=== PATIENT | female | born 1945 | race Caucasian/White ===

== ENCOUNTER 2022-11-11 09:09 | Emergency (ER) | payer MEDICARE, SELFPAY ==
[2022-11-11 09:09] VITALS: BP 167/88; PULSE 72; RESP 20; TEMP 35.1; O2SAT 97; BMI 22.8
--- NOTE | 2022-11-11 09:30 | CT_ITS ---
STUDY: CT BRAIN WITHOUT CONTRAST REASON FOR EXAM: Female, 77 years old. 2 week history of dizziness. RADIATION DOSAGE (If Supplied By Facility): CTDIvol = ( 44.99 ) mGy, DLP = ( 812.98 ) mGycm TECHNIQUE: Transaxial CT imaging of the brain was performed without administration of intravenous contrast material. Individualized dose optimization techniques were used for this CT. COMPARISON: No relevant priors. FINDINGS: Normal soft tissue structures. Normal calvarium. There is mild cerebral atrophy with widening of the extra-axial spaces and ventricular dilatation. Normal white matter tracts of the cerebral hemispheres. Normal basal ganglia and thalami. Normal brainstem. Normal cerebellum. There is no intracranial hemorrhage. There are no findings of an acute ischemic infarction. Atherosclerotic calcification of the cavernous portions of the internal carotid arteries bilaterally. Partial opacification of the right maxillary sinus. Complete opacification of the ethmoid sinuses with the thickening of the bony septations. Opacification of the frontal sinuses as well as the right sphenoid sinus. Nasal polyposis should be ruled out. CT/Brain/Head without Contrast IMPRESSION: Chronic involutional changes of the brain. Pansinusitis. Findings suggestive of nasal polyposis. Electronically Signed: Sudheer Christine MD at 10:24 EDT ,
--- NOTE | 2022-11-11 09:30 | EKG12_ITS ---
Test Reason : DIZZY Blood Pressure : / mmHG Vent. Rate : 064 BPM Atrial Rate : 064 BPM P-R Int : 134 ms QRS Dur : 090 ms QT Int : 374 ms P-R-T Axes : 046 -25 019 degrees QTc Int : 385 ms Normal sinus rhythm Possible Left atrial enlargement Minimal voltage criteria for LVH, may be normal variant ( R in aVL ) Nonspecific T wave abnormality Abnormal ECG Confirmed by KAY PINEDA, EDWIN ([id number]), story editor LANRE HSU ([id number]) on 11/14/2022 1:50:32 PM Referred By: Confirmed By:EDWIN VILLANUEVA MD
--- NOTE | 2022-11-11 09:32 | EX.ED.DYSGE1 ---
HPI History of Present Illness Chief Complaint: Dizziness Detail of Chief Complaint: Dizziness Informant: patient Narrative Narrative: Patient presents with dizziness that started initially 5 days ago. Patient had similar episode 2 weeks ago from and the dizziness lasted till noon the next day. Patient felt off balance. Patient does feel nauseated. Patient feels off balance. She has not fallen. She is not hit her head. No prior history of vertigo. She denies any chest pain or shortness of breath. She denies recent illness. Patient has history of hypothyroidism. PFSH PFSH Home Medications meclizine 25 mg chewable tablet (Antivert) 25 mg PO TID PRN dizziness #14 tabs 11/11/22 [Rx Last Taken Unknown] Allergy/AdvReac Type Severity Reaction Status Date / Time No Known Allergies Allergy Verified 11/11/22 09:10 Social History Smoking Status: Never smoker ROS ROS ED ROS Narrative Dizziness Review of Systems ROS Unobtainable: other Constitutional Constitutional ED: Reports lethargy; Denies chills, fever(s), sweats or weight loss Eyes Eyes: Denies blurry vision, change in vision or diplopia ENT ENT ED: Denies rhinorrhea or sore throat Cardiovascular Cardiovascular: Denies chest pain, orthopnea or racing heartbeat Respiratory/Chest Respiratory/Chest: Denies cough, dyspnea, dyspnea on exertion, orthopnea or sputum Gastrointestinal Gastrointestinal: Reports nausea; Denies abdominal pain, diarrhea or vomiting Genitourinary Genitourinary ED: Denies dysuria, hematuria or urinary frequency Musculoskeletal Musculoskeletal: Denies arthralgias, back pain, myalgias or neck pain Integumentary Denies abscess, Abrasions or rash Neurologic Neurologic: Denies headache(s) or weakness Psychiatric Psychiatric: Denies anxiety, depression or suicidal thoughts Endocrine Endocrinology: Denies polydipsia, polyphagia or polyuria Hematologic/Lymphatic Hematologic/Lymphatic: Denies easy bleeding, easy bruising or lymphadenopathy Allergic/Immunologic Allergic/Immunologic ED: Denies mouth swelling, tongue swelling or urticaria EXAM Physical Exam Const Vital Signs: 11/11/22 09:09 11/11/22 09:40 11/11/22 10:36 Temperature 95.1 F L Temperature Source Temporal Pulse Rate 72 Pulse Rate [Lying] 63 Pulse Rate [Sitting (for 1 minute prior to obtaining)] 63 Pulse Rate [Standing (for 1 minute prior to obtaining)] 71 Respiratory Rate 20 H Respiratory Effort Normal Non-Labored Respiratory Pattern Normal Blood Pressure 167/88 H Blood Pressure [Lying] 115/62 Blood Pressure [Sitting (for 1 minute prior to obtaining)] 127/67 H Blood Pressure [Standing (for 1 minute prior to obtaining)] 142/101 H Blood Pressure Mean 114 Blood Pressure Mean [Lying] 79 Blood Pressure Mean [Sitting (for 1 minute prior to obtaining)] 87 Blood Pressure Mean [Standing (for 1 minute prior to obtaining)] 114 Pulse Ox 97 Oxygen Delivery Method Room Air 11/11/22 11:40 Temperature Temperature Source Pulse Rate 64 Pulse Rate [Lying] Pulse Rate [Sitting (for 1 minute prior to obtaining)] Pulse Rate [Standing (for 1 minute prior to obtaining)] Respiratory Rate 13 Respiratory Effort Respiratory Pattern Blood Pressure 127/61 H Blood Pressure [Lying] Blood Pressure [Sitting (for 1 minute prior to obtaining)] Blood Pressure [Standing (for 1 minute prior to obtaining)] Blood Pressure Mean 83 Blood Pressure Mean [Lying] Blood Pressure Mean [Sitting (for 1 minute prior to obtaining)] Blood Pressure Mean [Standing (for 1 minute prior to obtaining)] Pulse Ox 95 Oxygen Delivery Method Room Air Positive well nourished and well developed General Appearance ED: well developed and NAD HEENT Reports TM's clear and moist mucous membranes normocephalic and atraumatic; Negative for trauma or tenderness Tympanic Membrane ED: Yes TM's clear Eyes PERRL and EOMs intact bilaterally General Eye ED: Negative for pale conjunctiva or scleral icterus Neck no lymphadenopathy, supple and no JVD General: Negative for tenderness Chest Wall inspection of chest normal and palpation of chest normal Chest: Negative for tenderness Resp normal respiratory effort and clear to auscultation bilaterally Effort and Inspection: Negative for respiratory distress or pain with movement Auscultation: Negative for rhonchi, wheezes or diminished lung sounds Cardio regular rate, regular rhythm, S1 normal heart sound, S2 normal heart sound and no murmurs Peripheral Pulses: pulses 2+ throughout GI normal to inspection, nondistended, normoactive bowel sounds, soft to palpation, non-tender, non-distended and no masses Back/Spine no CVA tenderness and no thoracic nor lumbar tenderness Extremity normal to inspection General Extremety ED: Negative for edema General Extremity: Negative for edema Neuro oriented x3, CN's II-XII intact bilaterally, no sensory deficits noted and gait normal Neuro Narrative: Finger-nose and heel rolon testing within normal limits, negative Romberg, negative pronator drift. Fundi benign. Hallpike maneuver negative for nystagmus or reproduction of her symptoms. Sensorium / Orientation: awake, alert, oriented to person, oriented to place and oriented to time Motor Exam: strength 5/5 throughout and strength abnormal Psych mental status grossly normal Skin no rashes or lesions noted and no wounds MDM MDM MDM Narrative Medical decision making narrative: Patient presents with dizziness. In the differential would be benign positional vertigo versus central cause such as stroke. There is no nystagmus on exam. I did obtain some basic labs CBC with differential showed a white count of 3.1 with a hemoglobin of 14 and platelets of 215. Chemistries were unremarkable. Troponin was negative. EKG showed a sinus rhythm with a rate of [address] changes. CT scan of the brain without contrast showed chronic involutional changes otherwise nothing acute. Patient was given Antivert 25 mg p.o. and she did not notice a significant difference in her symptomatology although currently her symptomatology is mild of just feeling off balance. Orthostatic vital signs were negative for blood pressure drop but her heart rate did increase with standing and she did feel somewhat dizzy. I did order an MRI of her brain to rule out central cause of stroke. This was negative for stroke but did show sinus disease that could be his pansinusitis. Patient has not had a fever. She does have chronic sinus problems and had surgery on her sinuses in 2018. This point patient looks well. I will write her a prescription prescription for Antivert. I will refer ENT for follow-up. I do not clinically feel she needs antibiotics. Lab Data Attestation: I reviewed the patient's lab results. Labs: Laboratory Results - last 24 hr 11/11/22 09:40 WBC 3.1 L RBC 4.73 Hgb 14.2 Hct 45.2 MCV 95.6 MCH 30.0 MCHC 31.4 L RDW Std Deviation 44.2 H RDW Coeff of Erinn 12.5 Plt Count 215 MPV 9.6 Immature Gran % (Auto) 0.300 Neut % (Auto) 52.9 Lymph % (Auto) 19.2 [place] % (Auto) 16.9 H Eos % (Auto) 10.4 H Baso % (Auto) 0.3 Absolute Neuts (auto) 1.6 L Absolute Lymphs (auto) 0.59 L Nucleated RBC % 0 Differential Comment SCANNED Diff Path Review May foll Sodium 140 Potassium 3.9 Chloride 107 Carbon Dioxide 30.0 Anion Gap 3 L BUN 16 Creatinine 0.76 Estim Creat Clear Calc 45.09 Est GFR (MDRD) Af Amer 94 Est GFR (MDRD) Non-Af 78 BUN/Creatinine Ratio 20.9 H Glucose 115 H Calcium 9.2 Troponin I High Sens 4 Radiography Diagnostic Testing: Clinical Impression(s) from Imaging Studies Brain CT 11/11/22 09:30 IMPRESSION: Chronic involutional changes of the brain. Pansinusitis. Findings suggestive of nasal polyposis. Electronically Signed: Sudheer Christine MD at 10:24 EDT , Brain MRI 11/11/22 11:32 IMPRESSION: No evidence for acute infarct. Mild chronic involutional and white matter changes. 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 Electronically Signed: Shy Candelario MD at 13:19 EDT , EKG Initial EKG: Attestation: I personally reviewed and interpreted this EKG as follows: Comments: Sinus rhythm with a rate of [address] changes Discharge Plan Triage Chief Complaint: Dizziness ED Provider: Shanell Rodgers Dx/Rx/DC Orders Clinical Impression: Dizziness Instructions: ED Dizziness, Uncertain Cause Prescriptions: New meclizine [Antivert] 25 mg tablet,chewable 25 mg PO TID PRN (Reason: dizziness) Qty: 14 0RF Primary Care Provider: Jagdish Joyce MD Referrals: Romain Corley MD [Med Staff - Active Staff] - 3-5 Days NOT,DEFINED [Non-Staff] - Disposition Disposition: Home, Self Care Discharge Date/Time: 11/11/22 13:49
--- NOTE | 2022-11-11 09:34 | NURSING ---
NO OLD EKGS
[2022-11-11] MEDS: Ondansetron 4 MG/2 ML Vial IV (09:49)
[2022-11-11] MEDS: Meclizine HCl 25 MG Tablet PO (09:49)
[2022-11-11] MEDS: 0.9% Normal Saline (1000mL) 1,000 ML 150 ML IV (09:54)
[2022-11-11 10:14] LABS: Absolute Lymphocyte Count 0.59 X10^3/uL (0.83-4.51); Absolute Neutrophil Count 1.6 X10^3/uL (2.0-7.7); Basophil# 0.01 X10^3/uL; Basophil% 0.3 % (0-1); Eosinophil# 0.32 X10^3/uL; Eosinophils% 10.4 % (0-5); Hematocrit 45.2 % (37-47); Hemoglobin 14.2 g/dL (12.0-15.0); Lymphocyte # 0.59 X10^3/ul (0.83-4.51); Lymphocyte % 19.2 % (19-41); Mean Corp Hgb Conc 31.4 g/dL (32-36); Mean Corpuscular Volume 95.6 fL (81-99); Mean Platelet Vol. 9.6 fl (6.2-12.0); Monocyte# 0.52 X10^3/uL; Monocyte% 16.9 % (0-10); NRBC Flagged by Analyzer 0 % (0-5); Neutrophil # 1.62 X10^3/uL (2.7-7.7); Neutrophil % 52.9 % (47-70); POSITIVE DIFFERENTIAL YES; Platelet Count 215 K/mm3 (150-450); RBC Distribution Width CV 12.5 % (11.6-14.6); RBC Distribution Width SD 44.2 fl (35.1-43.9); Red Blood Count 4.73 M/mm3 (4.2-5.4); White Blood Count 3.1 K/mm3 (4.4-11.0)
[2022-11-11 10:18] LABS: Differential Indicated SCAN CRITERIA MET
[2022-11-11 10:35] LABS: Anion Gap 3 (5-15); BUN 16 mg/dL (7-18); BUN/Creat Ratio 20.9 RATIO (10-20); Calcium,Total 9.2 mg/dL (8.5-10.1); Chloride 107 mmol/L (98-107); Creatinine, Serum 0.76 mg/dL (0.55-1.02); EST Glomerular Filtration Rate 78 mL/min (>60); Est Glom Filt Rate - Afr Amer 94 mL/min (>60); Estimated Creatinine Clearance 45.09 ml/min; Glucose 115 mg/dL (74-106); Potassium 3.9 mmol/L (3.5-5.1); Sodium Level 140 mmol/L (136-145); Troponin-I HS 4 pg/mL (3.0-54.0)
[2022-11-11 10:36] VITALS: BP 115/62; BP 127/67; BP 142/101; PULSE 63; PULSE 71
[2022-11-11 10:50] LABS: Differential Comment SCANNED
--- NOTE | 2022-11-11 11:32 | MRI_ITS ---
HISTORY: Dizziness, rule out posterior stroke. TECHNIQUE: Multiplanar and multisequence MR images of the brain were obtained without contrast. 301 images. COMPARISON: CT earlier same day. FINDINGS: BRAIN PARENCHYMA: Mild periventricular white matter changes. No abnormal focus of restricted diffusion. No acute intracranial hemorrhage identified. CSF SPACES: Mild volume loss. No significant midline shift or other mass effect.No extra-axial fluid collection. VASCULAR SYSTEM: Major intracranial flow voids are maintained. PARANASAL SINUSES AND MASTOID AIR CELLS: Severe opacification of the frontal ethmoid sinuses extending into the right sphenoid sinus. Sinonasal postoperative change with maxillary sinus mucosal thickening extending into the nasal cavity. ORBITS: Symmetric contents. MRI/Brain without Contrast IMPRESSION: No evidence for acute infarct. Mild chronic involutional and white matter changes. 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 Electronically Signed: Shy Candelario MD at 13:19 EDT ,
[2022-11-11 11:40] VITALS: BP 127/61; PULSE 64; RESP 13; O2SAT 95
[2022-11-13 09:37] LABS: Pathologist Review Reviewed
== END 2022-11-11 13:49 | disposition home or self-care (01) ==
PROVIDERS: Emergency Provider Emergency Medicine; Visit Provider Emergency Medicine
DX: R42 Dizziness and giddiness (principal)
CPT/HCPCS: 70450; 70551; 80048; 84484; 85025; 93005; 96361; 96374; 99285; J7030; A4216; J2405

== ENCOUNTER 2023-01-14 14:00 | Outpatient (RCR) | payer MEDICARE, SELFPAY ==
--- NOTE | 2023-01-14 13:47 | HP.PTEVAL ---
Patient's Visit Information Visit Information Visit Information: TONYA SOLARES is a 77 year old F referred to Physical Therapy by MALACHI QUEZADA with a diagnosis of LBP and B hip pain. Date of Evaluation: 12/26/22 Physical Therapist: Shane Carmona DPT Visit Plan Frequency: 2x /Week Duration: 4 Weeks Plan: Start with hip ER mobilization, IT band stretching. Progress glute, hip ER and abd strengthening as tolerated. Subjective Subjective: Pt. is here today for her initial evaluation with diagnosis of B hip pain and intervertebral disc degeneration. Pt. reports having increased pain in her low back and B lateral hips. Pt. reports no N/T and no mech of injury. Pt. reports increased pain with bending over, going up/down stairs, and with carrying. Pt. has been doing better, but still has some symptoms 1/10 pain at R lateral hip. Pt. is sleeping okay with occassional increase in symptoms. Pt. is hopeful to decrease her symptoms in order to get back to all recreational activities without limitations. Pain R lateral hip: Pain Intensity (Out of 10): 1 Pain Intensity Range: 0 and 8 Objective Objective: POSTURE: Pt. has fairly decent posture in stance. Normal symmetrical iliac crest heights. PALPATION: Pt. has some tenderness at R greater trochanter, and posterior medial aspect of greater trochanter. No anterior hip pain. mild lumbar pain with PA testing, hypomobility noted, no radicular symptoms with PAs. NEURO: normal throughout. ROM: LUMBAR SPINE: nil/min loss throughout no increase in lateral hip pain. R hip: normal flexion no pain, abd 45deg no pain, IR 30 deg no pain, ER 45deg increase nW at lateral hip. L hip: flexion no issues, abd no issues, IR no issues. ER 50deg mild increase in symptoms. Pt. does have tight IT bands with + obers test as well bilaterally. MMT: Pt. has good BLE strength except slight weakness with hip ER, abd and extension 4/5. Core strength fair-. GAIT: Pt. has good gait pattern, no obvious abnormalities. STAIRS: Pt. has increased B hip pain with ascending steps, less with descending. Special Tests L/S Slump test left side: Negative L/S Slump test right side: Negative L/S Left Straight Leg Raise: Negative L/S Right Straight Leg Raise: Negative Lumbar Standing: Flexion - Mechanical Response: No effect Lumbar Standing: Flexion - Symptoms During Testing: No effect Lumbar Standing: Flexion - Symptoms After Testing: No effect Lumbar Standing: Extension - Mechanical Response: No effect Lumbar Standing: Extension - Symptoms During Testing: No effect Lumbar Standing: Extension - Symptoms After Testing: No effect Lumbar Standing: Right Side Glides - Mechanical Response: No effect R Hip Scour: Negative R Hip DELIA - Intraarticular Pathology: Negative R Hip FADDIR - Labrum: Negative R Hip Trendelenberg - Glut Medius: Negative R Hip Mason - IT Band: Positive Comment: tight IT band L Hip Scour: Negative L Hip DELIA - Intraarticular Pathology: Negative L Hip FADDIR - Labrum: Negative L Hip Trendelenberg - Glut Medius: Negative L Hip Mason - IT Band: Positive Comment: tight IT band, less so than R side Balance/Special Test Scores Lower Extremity Functional Score: 39 Goals Goal 1:: LTG: pt. to be I with HEP to B hip stretching and glute/hip ER strengthening. Goal Time Frame: 4-6 Weeks Goal 2:: STG: Pt. to have increased B hip ER to 70+ deg bilaterally. Goal Time Frame: 2-4 Weeks Goal 3:: LTG: pt. to have increased strength of BLEs to 5/5 throughout. Goal Time Frame: 4-6 Weeks Goal 4:: LTG: Pt. to be able to get up and down stairs without increase in B hip pain. Goal Time Frame: 4-6 Weeks Rehabilitation Potential Physical Therapy Diagnosis: Pt. has signs and symptoms consistent with LBP and B hip pain. Her hip ROM is pretty good, except with hip ER. I would like to work on hip ER and core/hip strengthening in order to progress Rehabilitation Potential: Excellent Anticipated Interventions Patient/Client Instruction: Educate patient on: Condition, Plan of Care, Risk Factors and Benefits of Fitness Program For the Purpose of:: To improve decision making, To facilitate caregiver knowledge, To improve self management, To prevent re-injury, To improve ability to perform tasks related to life management and To improve tolerance to ADL's Therapeutic Exercise to Include: Strength training, Power training, Endurance training, Postural training, Flexibilty training, Gait and locomotor training, Passive ROM and Active ROM For the Purpose of:: To decrease pain, To increase ROM, To improve nutrient delivery to tissue, To increase oxygenation perfusion, To improve muscle performance and motor function, To improve ability to perform ADL's, To improve health of tissue, To decrease soft tissue restriction and To increase flexibility/ROM Manual Therapy Techniques to Include: Mobilization and Soft tissue mobilization For the Purpose of:: To decrease pain, To increase ROM, To improve nutrient delivery to tissue, To increase oxygenation perfusion and To improve muscle performance and motor function Text: Thank you for the opportunity to evaluate your patient. For Medicare and Medicare HMO plans, please review the plan of care and approve it. It will need to be FAXED BACK to us at [phone] for Medicare purposes. For Medicare only, by signing this I certify the plan of care. Please let me know if there are questions or concerns regarding this plan of care. Physician Signature: Date:
== END 2023-01-14 19:00 | disposition home or self-care (01) ==
LOC: PT 14:00
DX: M51.36 Other intervertebral disc degeneration, lumbar region (principal); M25.552 Pain in left hip; M25.551 Pain in right hip
CPT/HCPCS: 97035; 97110; 97161

== ENCOUNTER → 2023-12-02 | Outpatient (CLI) | payer MEDICARE, SELFPAY ==
[2023-12-02 10:45] LABS: Absolute Lymphocyte Count 0.71 X10^3/uL (0.83-4.51); Absolute Neutrophil Count 2.7 X10^3/uL (2.0-7.7); Basophil# 0.04 X10^3/uL; Basophil% 0.9 % (0-1); Eosinophil# 0.29 X10^3/uL; Eosinophils% 6.8 % (0-5); Hematocrit 45.6 % (37-47); Hemoglobin 14.6 g/dL (12.0-15.0); Lymphocyte # 0.71 X10^3/ul (0.83-4.51); Lymphocyte % 16.6 % (19-41); Mean Corpuscular Volume 93.8 fL (81-99); Mean Platelet Vol. 9.4 fl (6.2-12.0); Monocyte# 0.51 X10^3/uL; Monocyte% 11.9 % (0-10); NRBC Flagged by Analyzer 0 % (0-5); Neutrophil # 2.72 X10^3/uL (2.7-7.7); Neutrophil % 63.6 % (47-70); Platelet Count 246 K/mm3 (150-450); RBC Distribution Width CV 12.4 % (11.6-14.6); RBC Distribution Width SD 43.1 fl (35.1-43.9); Red Blood Count 4.86 M/mm3 (4.2-5.4); White Blood Count 4.3 K/mm3 (4.4-11.0)
[2023-12-02 11:26] LABS: ALB/GLOB Ratio 0.8 RATIO (0.9-2.4); AST(SGOT) 20 U/L (15-37); Alanine Aminotransfer ALT/SGPT 25 U/L (13-56); Albumin, Serum 3.4 g/dL (3.2-5.0); Alkaline Phosphatase 41 U/L (45-117); Anion Gap 4 (5-15); BUN 17 mg/dL (7-18); BUN/Creat Ratio 20.3 RATIO (10-20); Calcium,Total 9.9 mg/dL (8.5-10.1); Chloride 105 mmol/L (98-107); Cholesterol 202 mg/dL (200); Creatinine, Serum 0.84 mg/dL (0.55-1.02); EST Glomerular Filtration Rate 70 mL/min (>60); Est Glom Filt Rate - Afr Amer 84 mL/min (>60); Globulin 4.4 g/dL (2.2-4.2); Glucose 102 mg/dL (74-106); High Density Lipoprotein 104 mg/dL; Protein, Total 7.8 g/dL (6.4-8.2); Sodium Level 140 mmol/L (136-145); Triglycerides 46 mg/dL; Very Low Density Lipoprotein 9 mg/dL (5-40)
== END | disposition home or self-care (01) ==
PROVIDERS: PCP Family Medicine; Referring Provider Family Medicine; Visit Provider Family Medicine
DX: Z00.00 Encounter for general adult medical examination without abnormal findings (principal); E78.5 Hyperlipidemia, unspecified; E03.9 Hypothyroidism, unspecified
CPT/HCPCS: 36415; 80053; 80061; 84443; 85025

== ENCOUNTER → 2024-06-11 | Outpatient (CLI) | payer MEDICARE, SELFPAY ==
[2024-06-11 10:28] LABS: Absolute Lymphocyte Count 1.11 X10^3/uL (0.83-4.51); Absolute Neutrophil Count 1.9 X10^3/uL (2.0-7.7); Basophil# 0.03 X10^3/uL; Basophil% 0.8 % (0-1); Eosinophil# 0.39 X10^3/uL; Eosinophils% 9.9 % (0-5); Hematocrit 44.4 % (37-47); Hemoglobin 14.4 g/dL (12.0-15.0); Lymphocyte # 1.11 X10^3/ul (0.83-4.51); Lymphocyte % 28.2 % (19-41); Mean Corp Hgb Conc 32.4 g/dL (32-36); Mean Corpuscular Hgb 30.8 pg (27.0-32.0); Mean Corpuscular Volume 94.9 fL (81-99); Mean Platelet Vol. 9.6 fl (6.2-12.0); Monocyte% 12.7 % (0-10); NRBC Flagged by Analyzer 0 % (0-5); Neutrophil # 1.89 X10^3/uL (2.7-7.7); Neutrophil % 48.1 % (47-70); Platelet Count 261 K/mm3 (150-450); RBC Distribution Width CV 12.8 % (11.6-14.6); RBC Distribution Width SD 44.1 fl (35.1-43.9); Red Blood Count 4.68 M/mm3 (4.2-5.4); White Blood Count 3.9 K/mm3 (4.4-11.0)
[2024-06-11 11:15] LABS: ALB/GLOB Ratio 1.1 RATIO (0.9-2.4); AST(SGOT) 25 U/L (<=31); Alanine Aminotransfer ALT/SGPT 20 U/L (<=34); Albumin, Serum 3.8 g/dL (3.4-4.8); Alkaline Phosphatase 45 U/L (35-104); Anion Gap 10 (5-15); BUN 14 mg/dL (4-19); BUN/Creat Ratio 20.8 RATIO (10-20); Carbon Dioxide 28.2 mmol/L (21.0-32.0); Chloride 105 mmol/L (98-108); Cholesterol 261 mg/dL (<=200); Creatinine, Serum 0.67 mg/dL (0.70-1.20); EST Glomerular Filtration Rate 88 (>60); Globulin 3.4 g/dL (2.2-4.2); Glucose 93 mg/dL (70-99); High Density Lipoprotein 92 mg/dL; Low Density Lipoprotein Calc. 158 mg/dL; Potassium 4.4 mmol/L (3.3-5.1); Protein, Total 7.3 g/dL (5.9-8.4); Sodium Level 143 mmol/L (133-145); Total Bilirubin 0.29 mg/dL (0.00-1.30); Triglycerides 57 mg/dL; Very Low Density Lipoprotein 11 mg/dL (5-40); Vitamin D,25 Hydroxy 38.2 ng/mL (30-100); cholesterol:hdl ratio screen 2.84
== END | disposition home or self-care (01) ==
LOC: MTLAB 09:16
PROVIDERS: PCP Family Medicine; Referring Provider Family Medicine; Visit Provider Family Medicine
DX: J33.9 Nasal polyp, unspecified (principal); Z13.220 Encounter for screening for lipoid disorders; E03.9 Hypothyroidism, unspecified; E55.9 Vitamin D deficiency, unspecified
CPT/HCPCS: 36415; 80053; 80061; 82306; 84443; 85025

== ENCOUNTER → 2024-06-17 | Outpatient (CLI) | payer MEDICARE, SELFPAY ==
--- NOTE | 2024-06-17 10:23 | BD_ITS ---
PROCEDURE: DEXA BONE DENSITY STUDY 06/17/2024 REASON FOR EXAM: F, age 79 y/o . Postmenopausal. TECHNIQUE: DXA scan of the lumbar spine and both hips, using make and model. REFERENCE LINKS: ISCD Adult Positions COMPARISON: None FINDINGS: BMD and T-SCORES Lumbar spine: 0.678 g/cm2, T-Score -3.1 L1 through L4 Left femoral neck: 0.522 g/cm2, T-Score -2.9 Femoral neck comparison data not recommended for monitoring change. Left total hip: 0.644 g/cm2, T-Score -2.4 Right femoral neck: 0 point 520 g/cm2, T-Score -3.0 Femoral neck comparison data not recommended for monitoring change. Right total hip: 0.612 g/cm2, T-Score -2.7 Fracture Risk Calculation: FRAX (10-year Fracture Risk) Score: FRAX scores should never be reported in a patient with osteoporosis on DEXA or for any patient that is on bone medication. The patient doesmeet the pharmacological treatment recommendations for prevention of osteoporosis BD/Dexa Bone Density Study IMPRESSION: OSTEOPOROSIS. Recommend follow-up as clinically warranted. Reading Location: [place] [id number]
== END | disposition home or self-care (01) ==
LOC: OPBD 10:22
PROVIDERS: PCP Family Medicine; Referring Provider Family Medicine; Visit Provider Family Medicine
DX: Z78.0 Asymptomatic menopausal state (principal)
CPT/HCPCS: 77080

== ENCOUNTER 2024-12-02 20:37 | Emergency (ER) | payer MEDICARE, SELFPAY ==
[2024-12-02 20:39] VITALS: BP 178/76; PULSE 71; RESP 18; TEMP 36.8; O2SAT 97; BMI 23.3
--- NOTE | 2024-12-02 21:05 | EDS_ITS ---
HPI History of Present Illness Chief Complaint: Flank Pain Detail of Chief Complaint: Acute right flank pain that started 2 hours ago Informant: patient Onset/Context/Timing Onset: Today and Hours Context: Sudden Onset Timing: Continuous and Waxes and wanes Quality: Colicky Location: Initially right flank now wrapping around anteriorly Current Severity: Moderate Maximum Severity: Severe Worsened by: Nothing Relieved by: Nothing Associated Symptoms Associated Symptoms: Nausea, vomiting, dysuria and frequency Narrative Narrative: Patient is an 79-year-old woman. She has history of osteoporosis and remote history of kidney stone. She passed that stone. She presents because of abrupt onset of right flank pain that is now radiating anteriorly. Nothing makes the pain better or worse. She does endorse dysuria and frequency. She denies hematuria or urgency. She states she is only going small amounts, however. She denies vaginal bleeding. There is no history of direct or indirect trauma. She has no cardiorespiratory symptoms. Prior similar symptoms: Yes Recent Illness/Hospitalization: No [facility] Medical History Osteoporosis Lung disease Hypothyroidism Urinary incontinence Home Medications ?Medication ?Instructions ?Recorded ?Last Taken ?Type meclizine 25 mg chewable tablet 25 mg PO TID PRN dizzi ness #14 tabs 11/11/22 Unknown Rx (Antivert) albuterol sulfate 90 mcg/actuation 2 puff inhalation Q 4-6H PRN 10/08/24 Unknown Rx aerosol inhaler (Ventolin HFA) shortness of breath or wheezing #6.7 grams alendronate 70 mg tablet 70 mg PO SA 10/08/24 Unknown History fluticasone propionate 50 1 spray intranasal QDAY 10/25 Unknown History mcg/actuation nasal spray,suspension (Flonase Allergy Relief) levothyroxine 88 mcg tablet 88 mcg PO DAILY 10/08/24 U nknown History antiarthritic combination no.2 900 750 mg PO DAILY 04/27 Unknown History mg tablet (glucosamine-chondroitin) cephalexin 500 mg capsule 500 mg PO Q6 #28 CAPSULES Unknown Rx hydrocodone-acetaminophen 5-325mg 1 tab PO Q6H PRN PRN Pain 3 days 12/02/24 Unknown Rx 5mg-325mg #10 TABLETS magnesium aspartate HCl PO 12/02/24 Unknown History turmeric 400 mg capsule mg PO 12/02/24 Unknown Histo ry Allergy/AdvReac Type Severity Reaction Status Date / Time No Known Allergies Allergy Verified 12/02/24 20:40 Surgical History History of nasal polypectomy Social History Smoking Status: Never smoker alcohol intake: never substance use type: does not use ROS ROS ED Constitutional Constitutional ED: Denies chills, fever(s), subjective or sweats Cardiovascular Cardiovascular: Denies chest pain or palpitations Respiratory/Chest Respiratory/Chest: Denies cough, dyspnea or dyspnea on exertion Gastrointestinal Gastrointestinal: Reports abdominal pain, nausea and vomiting; Denies constipation, diarrhea or melena Genitourinary Genitourinary ED: Reports dysuria and urinary frequency; Denies hematuria Musculoskeletal Musculoskeletal: Denies arthralgias or myalgias Integumentary Denies Abrasions or rash Neurologic Neurologic: Denies paresthesias or weakness Psychiatric Psychiatric: Denies anxiety or depression Endocrine Endocrinology: Denies cold intolerance or heat intolerance Hematologic/Lymphatic Hematologic/Lymphatic: Reports systems reviewed and no addt'l complaints, except as documented EXAM Physical Exam Const Vital Signs: 12/02/24 20:39 12/02/24 22:38 Temperature 98.3 F Temperature Source Temporal Pulse Rate 71 72 Respiratory Rate 18 16 Blood Pressure 178/76 H 173/78 H Blood Pressure Mean 110 109 Pulse Ox 97 94 Oxygen Delivery Method Room Air Room Air Positive well nourished and well developed General Appearance ED: well developed and pallor; Negative for NAD HEENT Reports moist mucous membranes HEENT Narrative: Head is atraumatic and normocephalic. Ears normal. Nares patent. Eyes PERRL and EOMs intact bilaterally General Eye ED: Negative for pale conjunctiva or scleral icterus Neck no lymphadenopathy, supple and no JVD Chest Wall palpation of chest normal Resp normal respiratory effort and clear to auscultation bilaterally Cardio regular rate, regular rhythm, S1 normal heart sound, S2 normal heart sound and no murmurs GI normal to inspection, nondistended, normoactive bowel sounds, non-tender, non- distended and no masses; Negative for hepatosplenomegaly Back/Spine no CVA tenderness Extremity normal to inspection General Extremety ED: Negative for edema or tenderness General Extremity: Negative for edema Neuro oriented x3 and CN's II-XII intact bilaterally Sensorium / Orientation: alert Skin no rashes or lesions noted, no wounds and skin turgor normal General Skin Exam: pallor; Negative for elasticity normal MDM MDM MDM Narrative Medical decision making narrative: Patient with acute right flank pain radiating anteriorly. Differential diagnosis to be obstructing renal/ureteral stone, doubt pyelonephritis. Doubt biliary disease I cholelithiasis/cholecystitis with no tenderness in right upper quadrant. This could be pain of unknown etiology. Since it is not exacerbated or alleviated by anything doubt musculoskeletal. Doubt this is a abdominal aortic aneurysm causing her pain. To evaluate her will obtain CT of the abdomen and pelvis, appropriate blood work including UA. Blood work was obtained assess white count differential and renal function. Patient was medicated with Zofran for her nausea and morphine for her pain. Lab Data Attestation: I reviewed the patient's lab results. Lab results narrative: White count is normal. There is slight shift. This could be due to pain. Competence of metabolic panel reveals elevated glucose of 178 with normal CO2 and anion gap. Urinalysis is remarkable for protein, glucose, ketones occult blood and negative for nitrites. Micro reveals 0-5 RBCs and WBCs. There is no epithelial cells. There is 1+ bacteria. Labs: Laboratory Results - last 24 hr 12/02/24 12/02/24 20:55 21:18 WBC 7.2 RBC 4.84 Hgb 15.1 H Hct 44.1 MCV 91.1 MCH 31.2 MCHC 34.2 RDW Std Deviation 41.4 RDW Coeff of Erinn 12.5 Plt Count 239 MPV 9.2 Immature Gran % (Auto) 0.100 Neut % (Auto) 91.6 H Lymph % (Auto) 5.0 L [place] % (Auto) 2.9 Eos % (Auto) 0.1 Baso % (Auto) 0.3 Absolute Neuts (auto) 6.6 Absolute Lymphs (auto) 0.36 L Nucleated RBC % 0 Sodium 136 Potassium 4.1 Chloride 99 Carbon Dioxide 24.2 Anion Gap 14 BUN 17 Creatinine 0.86 Estim Creat Clear Calc 50.74 Est GFR (MDRD) Non-Af 68 BUN/Creatinine Ratio 19.4 Glucose 178 H Calcium 10.1 Total Bilirubin 0.36 AST 28 ALT 22 Alkaline Phosphatase 29 L Total Protein 7.9 Albumin 4.4 Globulin 3.5 Albumin/Globulin Ratio 1.3 Urine Color Yellow Urine Clarity Clear Urine pH 6.0 Ur Specific [place] 1.020 Urine Protein 15 H Urine Glucose (UA) 50 H Urine Ketones 150 A* Urine Occult Blood 25 H Urine Nitrite Negative Urine Bilirubin Negative Urine Urobilinogen Normal Ur Leukocyte Esterase 100 H Urine RBC 0-5 SEEN Urine WBC 0-5 SEEN Ur Squamous Epith Cells 0 SEEN Urine Bacteria 1+ Urine Mucus 0 SEEN In light of the urine results culture was sent and she received a dose of R ocephin in the emergency department. Radiography Diagnostic Testing: Clinical Impression(s) from Imaging Studies Abdomen/Pelvis CT 12/02/24 21:27 IMPRESSION: A 4 mm obstructing stone in the right ureter-bladder junction causing severe right hydronephrosis. Fluid density near the right renal pelvis consistent with forniceal rupture. Some of 5 x 6 x 7 mm stones at the upper pole of the left kidney. No hydronephrosis. Colonic diverticulosis with no evidence of acute diverticulitis. No bowel wall thickening or bowel wall obstruction. Reading Location: [facility] Treatment and Re-Evaluation :: Patient and were informed of results. They would like their prescription filled here at the hospital. Discharge Plan Triage Chief Complaint: Flank Pain ED Provider: Edvin Galvan Dx/Rx/DC Orders Clinical Impression: Hydronephrosis with urinary obstruction due to ureteral calculus, Calculus of left kidney, Diverticulosis, Hypothyroidism, Bacteriuria Instructions: ED Kidney Stone with Pain Prescriptions: New hydrocodone-acetaminophen 5-325 mg tablet 1 tab PO Q6H PRN PRN (Reason: Pain) 3 Days Qty: 10 0RF cephalexin 500 mg capsule 500 mg PO Q6 Qty: 28 0RF No Action levothyroxine 88 mcg tablet 88 mcg PO DAILY Patient Comments: [NO ORIGINAL SIG] fluticasone propionate [Flonase Allergy Relief] 50 mcg/actuation spray,suspension 1 spray intranasal QDAY Rx Instructions: administer into each nostril alendronate 70 mg tablet 70 mg PO SA albuterol sulfate [Ventolin HFA] 90 mcg/actuation HFA aerosol inhaler 2 puff inhalation Q4-6H PRN (Reason: shortness of breath or wheezing) Qty: 6.7 0RF meclizine [Antivert] 25 mg tablet,chewable 25 mg PO TID PRN (Reason: dizziness) Qty: 14 0RF turmeric 400 mg capsule PO magnesium aspartate HCl PO glucosamine-chondroitin 900 mg tablet 750 mg PO DAILY Rx Instructions: and 600 chondrotin Primary Care Provider: Andrea Moreno Referrals: Andrea Moreno MD [Primary Care Provider, Family Practice] Thomas Randall MD [Med Staff - Active Staff, Urology] - 3-5 Days Print Language: Irish Disposition Disposition: Home, Self Care
[2024-12-02 21:15] LABS: Hematocrit 44.1 % (37-47); Hemoglobin 15.1 g/dL (12.0-15.0); Immature Granulocytes Count 0.010 X10^3/uL (0.0-0.0); Mean Corp Hgb Conc 34.2 g/dL (32-36); Mean Corpuscular Volume 91.1 fL (81-99); Mean Platelet Vol. 9.2 fl (6.2-12.0); NRBC Flagged by Analyzer 0 % (0-5); POSITIVE DIFFERENTIAL YES; Platelet Count 239 K/mm3 (150-450); RBC Distribution Width CV 12.5 % (11.6-14.6); RBC Distribution Width SD 41.4 fl (35.1-43.9); Red Blood Count 4.84 M/mm3 (4.2-5.4); White Blood Count 7.2 K/mm3 (4.4-11.0)
[2024-12-02] MEDS: 0.9% Normal Saline (1000mL) 1,000 ML 250 ML IV (21:15)
--- NOTE | 2024-12-02 21:27 | CT_ITS ---
PROCEDURE: ABDOMEN/PELVIS WITHOUT CONT 12/02/2024 REASON FOR EXAM: KIDNEY STONE TECHNIQUE: Procedure Code: [id number] Modality: CT Procedure: ABDOMEN/PELVIS WITHOUT CONT Noncontrast technique limits evaluation of the abdominal and pelvic viscera. Coronal and Sagittal reconstruction series were provided. One or more dose reduction techniques were used (e.g., Automated exposure control, adjustment of the mA and/or kV according to patient size, use of iterative reconstruction technique). RADIATION DOSE SUMMARY: CTDlvol: 8.54 mGy DLP: 418.31 mGycm COMPARISON: None. FINDINGS: Lung bases: Clear. Liver: Unremarkable. Gallbladder: Unremarkable. No biliary dilation. Spleen: Unremarkable. Pancreas: Unremarkable. Adrenals: Unremarkable. Kidneys: A 2 mm stone at the midpole of the right kidney. A 4 mm obstructing stone in the right ureter-bladder junction causing severe right hydronephrosis. Fluid density near the right renal pelvis consistent with forniceal rupture. Some of 5 x 6 x 7 mm stones at the upper pole of the left kidney. No hydronephrosis. Bladder: The bladder is mildly distended. Reproductive Organs: Unremarkable. Bowel: Colonic diverticulosis with no evidence of acute diverticulitis. No bowel wall thickening or bowel wall obstruction. Appendix: Normal. Lymph nodes: No lymphadenopathy. Vasculature: No aneurysm. Peritoneum / Retroperitoneum: Small amount of free fluid knee in the right renal pelvis. Bones: No acute bony abnormalities. Multilevel degenerate changes of the lumbar spine. Limited study due to lack of IV and oral contrast. CT/Abdomen/Pelvis without Cont IMPRESSION: A 4 mm obstructing stone in the right ureter-bladder junction causing severe ri ght hydronephrosis. Fluid density near the right renal pelvis consistent with forniceal rupture. Some of 5 x 6 x 7 mm stones at the upper pole of the left kidney. No hydronephr osis. Colonic diverticulosis with no evidence of acute diverticulitis. No bowel wall thickening or bowel wall obstruction. Reading Location: [facility]
[2024-12-02 21:30] LABS: Mucous, Urine 0 SEEN /hpf (<or=2+); Squamous Epithelial Cells - UA 0 SEEN /hpf (5-10)
[2024-12-02 21:31] LABS: Color, Urine Yellow (Yellow); Glucose, Dipstick 50 mg/dl (Normal); Ketone-Dipstick 150 mg/dl (Negative); Leukocyte Esterase-Dipstick 100 /ul (Negative); Nitrite-Dipstick Negative (Negative); Occult Blood-Urine 25 /ul (Negative); Protein-Dipstick 15 mg/dl (Negative); Specific Gravity, Urine 1.020 (1.002-1.030); Urine Bilirubin Dipstick Negative (Negative)
[2024-12-02 21:36] LABS: AST(SGOT) 28 U/L (<=31); Alanine Aminotransfer ALT/SGPT 22 U/L (<=34); Albumin, Serum 4.4 g/dL (3.4-4.8); Alkaline Phosphatase 29 U/L (35-104); Anion Gap 14 (5-15); BUN 17 mg/dL (4-19); BUN/Creat Ratio 19.4 RATIO (10-20); Calcium,Total 10.1 mg/dL (7.6-11.0); Carbon Dioxide 24.2 mmol/L (21.0-32.0); Chloride 99 mmol/L (98-108); Estimated Creatinine Clearance 50.74 ml/min (50-250); Globulin 3.5 g/dL (2.2-4.2); Glucose 178 mg/dL (70-99); Potassium 4.1 mmol/L (3.3-5.1)
[2024-12-02 21:40] LABS: Red Blood Cells-Urine 0-5 SEEN /hpf (0-5)
[2024-12-02] MEDS: Ceftriaxone 2 GM in 0.9% Normal Saline (50mL MB+) 50 ML IV (22:22)
[2024-12-02 22:38] VITALS: BP 173/78; PULSE 72; RESP 16; O2SAT 94
[2024-12-02 23:09] VITALS: BP 173/78; PULSE 72; RESP 16; TEMP 36.8; O2SAT 94
--- OUTSIDE RECORDS SUMMARY | 2024-12-03 00:58 | XMS RPT_ITS | CCD ---
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 Name Role Phone Unavailable Primary Care Provider Unavaildwight e Ck Joyce MD Primary Care Provider Ck Joyce MD Primary Care Provider CK JOYCE Primary Care Unavailable SANJAY, CK Referring Unavailable MARIA DEL CARMEN, CK Primary Care Unavailable SANJAY, CK Referring Unavailable MARIA DEL CARMEN, KC Primary Care Unavailable SANJAY, CK Referring Unavailable [...] Care Provider Andrea Moreno MD Attending Provider Andrea Moreno MD Referring Provider [phone] Rodney Mosqueda Attending Provider Andrea Moreno Attending [...] Drug Class(es) Dates Sig (Normalized) Sig (Original) [id number] 200 actuat albuterol 0.09 mg/actuat metered dose [...] Reporton 0 10-08-2024 Urgent Care Visit Report [facility] [address], [address] [place] [address] OFFICE VISIT Date of Service: 10/08/24 MR#: [id number] Acct: [id number] Name: ONDINA DE LA FUENTE Rep #: [id number] : 1945 Provider: ANAI Tripathi Age/Sex: 79/F Location: [facility] Status: Signed Intake Vital Signs [...] THROAT Chief Complaint: cough, ST, drainage, fatigue Dural Mechanic Required: No Is patient in pain?: No [...] No 10/08 (more content not included)... Normal [facility] Dexa Bone Density Studyon Dexa Bone Density Study [facility] Services [address] [place], [place] [address] Dexa Bone Density Study MR#: [id number] Acct: [id number] Name: ONDINA DE LA FUENTE Rep #: [id number] : 1945 F 79 From: Sudheer chadwick MD PCP: Dr. Andrea Moreno MD Status: REG CLI Study: Dexa Bone Density Study Date of Exam: 06/17/24 Exam# [id number] Ordering Dr: Andrea Moreno MD PROCEDURE: DEXA [...] Recommend follow-up as clinically warranted. Reading Location: [facility] CC: Dr. Andrea Moreno MD Electronic Science Teacher: Signed Normal [facility] Absolute lymphocyte countOrd ered By: Andrea Moreno on 06-11-2024 Lymphocytes Auto (Unsp spec) [#/Vol] 1.11 10*3/uL 0.83-4.51 [facility] Absolute neutrophil countOrd ered By: Andrea Leivake on 06-11-2024 Neutrophils (Bld) [#/Vol] 1.9 10*3/uL Low 2.0-7.7 [facility] Anion gap in Serum or Plasma Ordered By: Andrea Tiffanie on 06-11-2024 Anion gap [Moles/Vol] 10 mmol/L 5-15 [facility] Automated lymphocyte count a s percentage of total leukocytesOrdered By: Andrea Leivake on 06-11-2024 Lymphocytes/100 WBC Auto (Unsp spec) 28.2 % 19-41 [facility] BUN/creatinine ratioOrdered By: [facility] Leiv[facility] on 06-11-2024 Urea nitrogen/Creatinine [Mass ratio] 20.8 mg/mg High 10-20 [facility] Basophil percentageOrdered B y: Andrea Leivake on 06-11-2024 Basophils/100 WBC (Bld) 0.8 % 0-1 [facility] Bilirubin, totalOrdered By: Andrea Tiffanie on 06-11-2024 Bilirubin [Mass/Vol] 0.29 mg/dL 0.00-1.30 [facility] CBC W/Diff, Automatedon 06-01 Absolute Lymph 1.11 X10 3/uL Normal 0.83-4.51 [facility] Comment on above: Performed By: #### L 100.0100, L500.4100, L500.4050, L506.1001, L501.9520 #### [facility] Laboratory [address] [place], [address] Absolute Neut 1.9 X10 3/uL Low 2.0-7.7 [facility] Comment on above: Performed By: #### L 100.0100, L500.4100, L500.4050, L506.1001, L501.9520 #### [facility] [address] [place], [address] Basophils/100 WBC (Bld) 0.8 % Normal 0-1 [facility] Comment on above: Performed By: #### L 100.0100, L500.4100, L500.4050, L506.1001, L501.9520 #### [facility] [address] [place], [address] Eosinophils/100 WBC (Bld) 9.9 % High 0-5 [facility] Comment on above: Performed By: #### L 100.0100, L500.4100, L500.4050, L506.1001, L501.9520 #### [facility] [address] [place], [address] Erythrocyte distribution width (RBC) [Ratio] 12.8 % Normal 11.6-14.6 [facility] Comment on above: Performed By: #### L 100.0100, L500.4100, L500.4050, L506.1001, L501.9520 #### [facility] [address] [place], [address] Hematocrit (Bld) [Volume fraction] 44.4 % Normal 37-47 [facility] Comment on above: Performed By: #### L 100.0100, L500.4100, L500.4050, L506.1001, L501.9520 #### [facility] [address] [place], [address] Hemoglobin (Bld) [Mass/Vol] 14.4 g/dL Normal 12.0-15.0 [facility] Comment on above: Performed By: #### L 100.0100, L500.4100, L500.4050, L506.1001, L501.9520 #### [facility] [address] [place], [address] IG% 0.300 Normal 0.0-0.9 [facility] Comment on above: Result Comment: IG% - Immature Granulocytes (promyelocytes, myelocytes and metamyelocytes) > 1% indicates that a LEFT SHIFT is Present. Performed By: #### L 100.0100, L500.4100, L500.4050, L506.1001, L501.9520 #### [facility] [address] [place], [address] Lymphocytes/100 WBC (Bld) 28.2 % Normal 19-41 [facility] Comment on above: Performed By: #### L 100.0100, L500.4100, L500.4050, L506.1001, L501.9520 #### [facility] [address] [place], [address] MCH (RBC) [Entitic mass] 30.8 pg Normal 27.0-32.0 [facility] Comment on above: Performed By: #### L 100.0100, L500.4100, L500.4050, L506.1001, L501.9520 #### [facility] [address] [place], [address] MCHC (RBC) [Mass/Vol] 32.4 g/dL Normal 32-36 [facility] Comment on above: Performed By: #### L 100.0100, L500.4100, L500.4050, L506.1001, L501.9520 #### [facility] [address] [place], [address] MCV (RBC) [Entitic vol] 94.9 fL Normal 81-99 [facility] Comment on above: Performed By: #### L 100.0100, L500.4100, L500.4050, L506.1001, L501.9520 #### [facility] [address] [place], [address] Monocytes/100 WBC (Bld) 12.7 % High 0-10 [facility] Comment on above: Performed By: #### L 100.0100, L500.4100, L500.4050, L506.1001, L501.9520 #### [facility] [address] [place], [address] Neutrophils/100 WBC (Bld) 48.1 % Normal 47-70 [facility] Comment on above: Performed By: #### L 100.0100, L500.4100, L500.4050, L506.1001, L501.9520 #### [facility] [address] [place], [address] Nucleated RBC (Bld) [#/Vol] 0 10*3/uL Normal 0-5 [facility] Comment on above: Performed By: #### L 100.0100, L500.4100, L500.4050, L506.1001, L501.9520 #### [facility] [address] [place], [address] Platelet mean volume (Bld) [Entitic vol] 9.6 fL Normal 6.2-12.0 [facility] Comment on above: Performed By: #### L 100.0100, L500.4100, L500.4050, L506.1001, L501.9520 #### [facility] Laboratory [address] [place], [address] Platelets (Bld) [#/Vol] 261 10*3/uL Normal 150-450 [facility] Comment on above: Performed By: #### L 100.0100, L500.4100, L500.4050, L506.1001, L501.9520 #### [facility] [address] [place], [address] RBC (Bld) [#/Vol] 4.68 10*6/uL Normal 4.2-5.4 [facility] Comment on above: Performed By: #### L 100.0100, L500.4100, L500.4050, L506.1001, L501.9520 #### [facility] [address] [place], [address] RDW SD 44.1 fl High 35.1-43.9 [facility] Comment on above: Performed By: #### L 100.0100, L500.4100, L500.4050, L506.1001, L501.9520 #### [facility] Laboratory [address] [place], [address] WBC (Bld) [#/Vol] 3.9 10*3/uL Low 4.4-11.[address] [facility] Comment on above: Performed By: #### L 100.0100, L500.4100, L500.4050, L506.1001, L501.9520 #### [facility] Laboratory [address] [facility] [place], [address] Calculated very low density lipoprotein (VLDL) cholesterol measurementOrdered By: Andrea Moreno on 06-11-2024 Calculated very low density lipoprotein (VLDL) cholesterol measurement 11 mg/dL [facility] VLDL Cholesterol 11 mg/dL - [facility] Carbon dioxide, total [Moles /volume] in Central venous bloodOrdered By: Andrea Moreno on 06-11-2024 CO2 [Moles/Vol] 28.2 mmol/L 21.0-32.0 [facility] Chloride assayOrdered By: Jagruti Moreno on 06-11-2024 Chloride [Moles/Vol] 105 mmol/L 98-108 [facility] Comprehensive Metabolic Prof ilon 06-11-2024 Albumin [Mass/Vol] 3.8 g/dL Normal 3.4-4.[address] [facility] Comment on above: Performed By: #### L 100.0100, L500.4100, L500.4050, L506.1001, L501.9520 #### [facility] Laboratory [address] [place], [address] Albumin/Globulin [Mass ratio] 1.1 {ratio} Normal 0.9-2.4 [facility] Comment on above: Performed By: #### L 100.0100, L500.4100, L500.4050, L506.1001, L501.9520 #### [facility] [address] [place], [address] ALK PHOS 45 U/L Normal 35-104 [facility] Comment on above: Performed By: #### L 100.0100, L500.4100, L500.4050, L506.1001, L501.9520 #### [facility] [address] [place], [address] ALT [Catalytic activity/Vol] 20 U/L Normal <=34 [facility] Comment on above: Performed By: #### L 100.0100, L500.4100, L500.4050, L506.1001, L501.9520 #### [facility] [address] [place], [address] AST [Catalytic activity/Vol] 25 U/L Normal <=31 [facility] Comment on above: Performed By: #### L 100.0100, L500.4100, L500.4050, L506.1001, L501.9520 #### [facility] [address] [place], [address] Bilirubin [Mass/Vol] 0.29 mg/dL Normal 0.00-1.30 [facility] Comment on above: Performed By: #### L 100.0100, L500.4100, L500.4050, L506.1001, L501.9520 #### [facility] [address] [place], [address] BUN/CRE 20.8 RATIO High 10-20 [facility] Comment on above: Performed By: #### L 100.0100, L500.4100, L500.4050, L506.1001, L501.9520 #### [facility] [address] [place], [address] Calcium [Mass/Vol] 10.0 mg/dL Normal 7.6-11.[address] [facility] Comment on above: Performed By: #### L 100.0100, L500.4100, L500.4050, L506.1001, L501.9520 #### [facility] [address] [place], [address] Chloride [Moles/Vol] 105 mmol/L Normal 98-108 [facility] Comment on above: Performed By: #### L 100.0100, L500.4100, L500.4050, L506.1001, L501.9520 #### [facility] [address] [place], [address] CO2 [Moles/Vol] 28.2 mmol/L Normal 21.0-32.0 [facility] Comment on above: Performed By: #### L 100.0100, L500.4100, L500.4050, L506.1001, L501.9520 #### [facility] [address] [place], [address] Creatinine [Mass/Vol] 0.67 mg/dL Low 0.70-1.20 [facility] Comment on above: Performed By: #### L 100.0100, L500.4100, L500.4050, L506.1001, L501.9520 #### [facility] [address] [place], [address] GAP 10 Normal 5-15 [facility] Comment on above: Performed By: #### L 100.0100, L500.4100, L500.4050, L506.1001, L501.9520 #### [facility] [address] [place], [address] GFR/1.73 sq M.predicted among non-blacks MDRD (S/P/Bld) [Vol rate/Area] 88 mL/min/{1.73_m2} Normal >60 [facility] Comment on above: Result Comment: mL/m in/1.73m2 CKD-EPI Creatinine Equation (2020) Performed By: #### L 100.0100, L500.4100, L500.4050, L506.1001, L501.9520 #### [facility] [address] [place], [address] Globulin (S) [Mass/Vol] 3.4 g/dL Normal 2.2-4.2 [facility] Comment on above: Performed By: #### L 100.0100, L500.4100, L500.4050, L506.1001, L501.9520 #### [facility] [address] [place], [address] Glucose [Mass/Vol] 93 mg/dL Normal 70-[address] [facility] Comment on above: Performed By: #### L 100.0100, L500.4100, L500.4050, L506.1001, L501.9520 #### [facility] [address] [place], [address] Potassium [Moles/Vol] 4.4 mmol/L Normal 3.3-5.1 [facility] Comment on above: Performed By: #### L 100.0100, L500.4100, L500.4050, L506.1001, L501.9520 #### [facility] [address] [place], [address] Sodium [Moles/Vol] 143 mmol/L Normal 133-[address] [facility] Comment on above: Performed By: #### L 100.0100, L500.4100, L500.4050, L506.1001, L501.9520 #### [facility] [address] [place], [address] T PROT 7.3 g/dL Normal 5.9-8.4 [facility] Comment on above: Performed By: #### L 100.0100, L500.4100, L500.4050, L506.1001, L501.9520 #### [facility] [address] [place], [address] Urea nitrogen [Mass/Vol] 14 mg/dL Normal 4-19 [facility] Comment on above: Performed By: #### L 100.0100, L500.4100, L500.4050, L506.1001, L501.9520 #### [facility] [address] [place], [address] Eosinophil percentageOrdered By: Andrea Moreno on 06-11-2024 Eosinophils/100 WBC (Bld) 9.9 % High 0-5 [facility] Erythrocyte distribution wid th (RBC) [Ratio]Ordered By: Andrea Moreno on 06-11-2024 Erythrocyte distribution width (RBC) [Entitic vol] 44.1 fL High 35.1-43.9 [facility] Erythrocyte distribution wid th ratioOrdered By: Andrea Moreno on 06-11-2024 Erythrocyte distribution width (RBC) [Ratio] 12.8 % 11.6-14.6 [facility] Erythrocyte distribution wid th standard deviationOrdered By: [facility] Tiffanie on 06-11-2024 Erythrocyte distribution width (RBC) [Ratio] 44.1 fl High 35.1-43.9 [facility] GFR/1.73 sq M.predicted [place] g non-blacks MDRD (S/P/Bld) [Vol rate/Area]Ordered By: Andrea Moreno on 06-11-2024 Estimated GFR (MDRD) Non-Af Amer 88 >60 [facility] Comment on above: mL/min/1.73m2 CKD-EP I Creatinine Equation (2020) Glomerular filtration rate ( GFR) estimation/1.73 sq m using serum, plasma, or whole bOrdered By: Andrea Moreno on 06-11-2024 GFR/1.73 sq M.predicted among non-blacks MDRD (S/P/Bld) [Vol rate/Area] 88 mL/min/{1.73_m2} >60 [facility] Comment on above: mL/min/1.73m2 CKD-EP I Creatinine Equation (2020) Hematocrit Auto (Bld) [Volum e fraction]Ordered By: Andrea Moreno on 06-11-2024 Hematocrit (Bld) [Volume fraction] 44.4 % 37-47 [facility] Hemoglobin measurementOrdere d By: Andrea Moreno on 06-11-2024 Hemoglobin (Bld) [Mass/Vol] 14.4 g/dL 12.0-15.0 [facility] Immature granulocytes/100 WB C Auto (Bld)Ordered By: Andrea Moreno on 06-11-2024 Immature granulocytes/100 WBC (Bld) 0.300 % 0.0-0.9 [facility] Comment on above: IG% - Immature Granu locytes (promyelocytes, myelocytes and metamyelocytes) > 1% indicates that a LEFT SHIFT is Present. LDL calc ser/plasOrdered By: Andrea Moreno on 06-11-2024 Cholesterol in LDL [Mass/Vol] 158 mg/dL [facility] Comment on above: Ochfqfiera=183-545 m g/dL & Higher Jbok=060 mg/dL or greater LDL Cholesterol, Calculated 158 mg/dL [facility] Comment on above: Ihmxrqxgdf=977-240 m g/dL & Higher Pejx=575 mg/dL or greater Laboratory - Chemistry and C hemistry - challengeOrdered By: Andrea Moreno on 06-11-2024 AST [Catalytic activity/Vol] 25 U/L <32 [facility] Lipid Profileon 06-11-2024 CHOL:HDL 2.84 Normal [facility] Comment on above: Performed By: #### L 100.0100, L500.4100, L500.4050, L506.1001, L501.9520 #### [facility] Laboratory [address] [place], [address] Cholesterol [Mass/Vol] 261 mg/dL High <=200 [facility] Comment on above: Result Comment: Chol esterol level, Desirable <200 mg/dL Borderline high cholesterol 200-239 mg/dL High cholesterol >=240 mg/dL Recommendations of the NCEP Adult Treatment Panel for the following risk-cutoff thresholds for the [place] population. Performed By: #### L 100.0100, L500.4100, L500.4050, L506.1001, L501.9520 #### [facility] [address] [place], [address] Cholesterol in HDL [Mass/Vol] 92 mg/dL Normal [facility] Comment on above: Result Comment: [place]ika onal Cholesterol Education Program (NCEP) guidelines: <40 mg/dL: Low HDL-cholesterol (major risk factor for CHD) >= 60 mg/dL: High HDL-cholesterol (negative risk factor for CHD) HDL-cholesterol is affected by a number of factors, e.g. smoking, exercise, hormones, sex and age. Performed By: #### L 100.0100, L500.4100, L500.4050, L506.1001, L501.9520 #### [facility] [address] [place], [address] Cholesterol in LDL [Mass/Vol] 158 mg/dL Normal [facility] Comment on above: Result Comment: Bord cgxeol=918-739 mg/dL Higher Dfsy=162 mg/dL or greater Performed By: #### L 100.0100, L500.4100, L500.4050, L506.1001, L501.9520 #### [facility] [address] [place], [address] Cholesterol in VLDL [Mass/Vol] 11 mg/dL Normal 5-40 [facility] Comment on above: Performed By: #### L 100.0100, L500.4100, L500.4050, L506.1001, L501.9520 #### [facility] [address] [place], [address] Triglyceride [Mass/Vol] 57 mg/dL Normal [facility] Comment on above: Result Comment: The drugs N-Acetylcysteine and Metamizole may falsely depress this assay. Normal range: <150 mg/dL Borderline High: 150-199 mg/dL High: 200-499 mg/dL Very High: >500 mg/dL Performed By: #### L 100.0100, L500.4100, L500.4050, L506.1001, L501.9520 #### [facility] [place], [address] Lymphocytes Auto (Unsp spec) [#/Vol]Ordered By: Andrea Moreno on 06-11-2024 Lymphocytes (Bld) [#/Vol] 1.11 10*3/uL 0.83-4.51 [facility] Lymphocytes/100 WBC Auto (Un sp spec)Ordered By: Andrea Tiffanie on 06-11-2024 Lymphocytes/100 WBC (Bld) 28.2 % 19-41 [facility] MCV (mean corpuscular volume ) determinationOrdered By: Andrea Moreno on 06-11-2024 MCV (RBC) [Entitic vol] 94.9 fL 81-99 [facility] Mean corpuscular hemoglobin (MCH) determinationOrdered By: Andrea Moreno on 06-11-2024 MCH (RBC) [Entitic mass] 30.8 pg 27.0-32.0 [facility] Mean corpuscular hemoglobin concentration (MCHC) determinationOrdered By: Andrea Moreno on 06-11-2024 MCHC (RBC) [Mass/Vol] 32.4 g/dL 32-36 [facility] Mean platelet volume determi nationOrdered By: Andrea Moreno on 06-11-2024 Platelet mean volume (Bld) [Entitic vol] 9.6 fL 6.2-12.0 [facility] Monocyte percentageOrdered B y: Andrea Moreno on 06-11-2024 Monocytes/100 WBC (Bld) 12.7 % High 0-10 [facility] Neutrophil percentageOrdered By: Andrea Moreno on 06-11-2024 Neutrophils/100 WBC (Bld) 48.1 % 47-70 [facility] Nucleated red blood cell per centageOrdered By: Andrea Moreno on 06-11-2024 Nucleated RBC/100 WBC (Bld) [Ratio] 0 % 0-5 [facility] Platelet countOrdered By: Jagruti Moreno on 06-11-2024 Platelets (Bld) [#/Vol] 261 10*3/uL 150-450 [facility] Potassium (Unsp spec) [Mass/ Vol]Ordered By: Andrea Moreno on 06-11-2024 Potassium [Moles/Vol] 4.4 mmol/L 3.3-5.1 [facility] Potassium measurement (mass/ volume)Ordered By: Andrea Moreno on 06-11-2024 Potassium (Unsp spec) [Mass/Vol] 4.4 mmol/L 3.3-5.1 [facility] RBC Auto (Bld) [#/Vol]Ordere d By: Andrea Moreno on 06-11-2024 RBC (Bld) [#/Vol] 4.68 10*6/uL 4.2-5.4 [facility] Screening total cholesterol/ high density lipoprotein (HDL) cholesterol ratioOrdered By: Andrea Moreno on 06-11-2024 Cholesterol.total/Cho lesterol in HDL [Mass ratio] 2.84 {ratio} [facility] Serum creatinine measurement (mass/volume)Ordered By: Andrea Moreno on 06-11-2024 Creatinine [Mass/Vol] 0.67 mg/dL Low 0.70-1.20 [facility] Serum globulin measurementOr dered By: Andrea Moreno on 06-11-2024 Globulin (S) [Mass/Vol] 3.4 g/dL 2.2-4.2 [facility] Serum glucose measurement (m ass/volume)Ordered By: Andrea Moreno on 06-11-2024 Glucose [Mass/Vol] 93 mg/dL 70-[address] [facility] Serum or plasma alanine oakley otransferase (ALT) measurementOrdered By: Andrea Moreno on 06-11-2024 ALT [Catalytic activity/Vol] 20 U/L <35 [facility] Serum or plasma albumin ginny urement (mass/volume)Ordered By: Andrea Moreno on 06-11-2024 Albumin [Mass/Vol] 3.8 g/dL 3.4-4.[address] [facility] Serum or plasma albumin/glob ulin mass ratioOrdered By: Andrea Moreno on 06-11-2024 Albumin/Globulin [Mass ratio] 1.1 {ratio} 0.9-2.4 [facility] Serum or plasma alkaline teddy sphatase measurementOrdered By: Andrea Moreno on 06-11-2024 ALP [Catalytic activity/Vol] 45 U/L 35-104 [facility] Serum or plasma calcium ginny urement (mass/volume)Ordered By: Andrea Moreno on 06-11-2024 Calcium [Mass/Vol] 10.0 mg/dL 7.6-11.[address] [facility] Serum or plasma cholesterol in HDL measurement (mass/volume)Ordered By: Andrea Moreno on 06-11-2024 Cholesterol in HDL [Mass/Vol] 92 mg/dL >40 [facility] Comment on above: National Cholesterol Education Program (NCEP) guidelines:<40 mg/dL: Low HDL-cholesterol (major risk factor for CHD)>= 60 mg/dL: High HDL-cholesterol (negative risk factor for CHD)HDL-cholesterol is affected by a number of factors, e.g. smoking, exercise, hormones, sex and age. Serum or plasma cholesterol measurement (mass/volume)Ordered By: Andrea Moreno on 06-11-2024 Cholesterol [Mass/Vol] 261 mg/dL High <201 [facility] Comment on above: Cholesterol level, D esirable <200 mg/dLBorderline high cholesterol 200-239 mg/dLHigh cholesterol >=240 mg/dLRecommendations of the NCEP Adult Treatment Panel for the following risk-cutoff thresholds for the [place] population. Serum or plasma urea nitroge n measurement (mass/volume)Ordered By: Andrea Moreno on 06-11-2024 Urea nitrogen [Mass/Vol] 14 mg/dL 4-19 [facility] Sodium levelOrdered By: Adriane Moreno on 06-11-2024 Sodium [Moles/Vol] 143 mmol/L 133-[address] [facility] TSH DL <= 0.005 mIU/L QnOrde red By: Andrea Moreno on 06-11-2024 Thyroid Stimulating Hormone (TSH) 2.020 uIU/mL 0.300-4.20 0 [facility] TSH Qn 2.020 uIU/mL 0.300-4.20 0 [facility] Thyroid Stim Hormone (TSH)on 06-11-2024 TSH 2.020 uIU/mL Normal 0.300-4.20 0 [facility] Comment on above: Performed By: #### L 100.0100, L500.4100, L500.4050, L506.1001, L501.9520 #### [facility] [address] [place], [address] Total proteinOrdered By: Belia Moreno on 06-11-2024 Protein [Mass/Vol] 7.3 g/dL 5.9-8.[address] [facility] Triglycerides measurementOrd ered By: Andrea Moreno on 06-11-2024 Triglyceride [Mass/Vol] 57 mg/dL <199 [facility] Comment on above: The drugs N-Acetylcy steine and Metamizole may falsely depress this assay. Normal range: <150 mg/dLBorderline High: 150-199 mg/dLHigh: 200-499 mg/dLVery High: >500 mg/dL Vitamin D, 25-hydroxyOrdered By: Andrea Moreno on 06-11-2024 Vitamin D 25-Hydroxy 38.2 ng/mL 30-100 [facility] Comment on above: Vitamin D StatusDefi ciency: <20 ng/mL (50nmol/L)Insufficiency: 20-30 ng/mL (50-75 nmol/L)Sufficiency: 30-100 ng/mL (75-250 nmol/L)Toxicity: >100 ng/mL (>250 nmol/L) Vitamin D,25 Hydroxyon 06-11 Vitamin D 25-OH 38.2 ng/mL Normal 30-100 [facility] Comment on above: Result Comment: Nupur min D Status Deficiency: <20 ng/mL (50nmol/L) Insufficiency: 20-30 ng/mL (50-75 nmol/L) Sufficiency: 30-100 ng/mL (75-250 nmol/L) Toxicity: >100 ng/mL (>250 nmol/L) Performed By: #### L 100.0100, L500.4100, L500.4050, L506.1001, L501.9520 #### [facility] [address] [place], [address] White blood cell (WBC) count Ordered By: Andrea Moreno on 04-11-2025 WBC (Bld) [#/Vol] 3.9 10*3/uL Low 4.4-11.0 [facility] (PULMWS ) ONDINA DE LA FUENTE ([id number]) 1945 F Date Time Provider Department 01/23/24 8:45 AM ANUSHKA SHINE PULMWS During your visit today, we recorded the following information about you: Anushka Shine MD 01/23/2024 11:14 AM Signed . [facility] [place] Note Patient name: Ondina De La Fuente [...] sooner with problems Anushka Shine MD [facility] [place] Anushka Shine MD 01/23/2024 9:20 AM Signed [...] - pantoprazole (more content not included)... Normal [facility] CBC W/Diff, Automatedon 10-0 Absolute Lymph 0.71 X10 3/uL Low 0.83-4.51 [facility] Comment on above: Performed By: #### L 100.0100, L501.9520, L500.4100, L500.4050 #### [facility] [address] [place], [address] Absolute Neut 2.7 X10 3/uL Normal 2.0-7.7 [facility] Comment on above: Performed By: #### L 100.0100, L501.9520, L500.4100, L500.4050 #### [facility] [address] [place], [address] Basophils/100 WBC (Bld) 0.9 % Normal 0-1 [facility] Comment on above: Performed By: #### L 100.0100, L501.9520, L500.4100, L500.4050 #### [facility] [address] [place], [address] Eosinophils/100 WBC (Bld) 6.8 % High 0-5 [facility] Comment on above: Performed By: #### L 100.0100, L501.9520, L500.4100, L500.4050 #### [facility] [address] [place], [address] Erythrocyte distribution width (RBC) [Ratio] 12.4 % Normal 11.6-14.6 [facility] Comment on above: Performed By: #### L 100.0100, L501.9520, L500.4100, L500.4050 #### [facility] [address] [place], [address] Hematocrit (Bld) [Volume fraction] 45.6 % Normal 37-47 [facility] Comment on above: Performed By: #### L 100.0100, L501.9520, L500.4100, L500.4050 #### [facility] [address] [place], [address] Hemoglobin (Bld) [Mass/Vol] 14.6 g/dL Normal 12.0-15.0 [facility] Comment on above: Performed By: #### L 100.0100, L501.9520, L500.4100, L500.4050 #### [facility] [address] [place], [address] IG% 0.200 Normal 0.0-0.9 [facility] Comment on above: Result Comment: IG% - Immature Granulocytes (promyelocytes, myelocytes and metamyelocytes) > 1% indicates that a LEFT SHIFT is Present. Performed By: #### L 100.0100, L501.9520, L500.4100, L500.4050 #### [facility] [address] [place], [address] Lymphocytes/100 WBC (Bld) 16.6 % Low 19-41 [facility] Comment on above: Performed By: #### L 100.0100, L501.9520, L500.4100, L500.4050 #### [facility] [address] [place], [address] MCH (RBC) [Entitic mass] 30.0 pg Normal 27.0-32.0 [facility] Comment on above: Performed By: #### L 100.0100, L501.9520, L500.4100, L500.4050 #### [facility] [address] [place], [address] MCHC (RBC) [Mass/Vol] 32.0 g/dL Normal 32-36 [facility] Comment on above: Performed By: #### L 100.0100, L501.9520, L500.4100, L500.4050 #### [facility] [address] [place], [address] MCV (RBC) [Entitic vol] 93.8 fL Normal 81-99 [facility] Comment on above: Performed By: #### L 100.0100, L501.9520, L500.4100, L500.4050 #### [facility] [address] [place], [address] Monocytes/100 WBC (Bld) 11.9 % High 0-10 [facility] Comment on above: Performed By: #### L 100.0100, L501.9520, L500.4100, L500.4050 #### [facility] [address] [place], [address] Neutrophils/100 WBC (Bld) 63.6 % Normal 47-70 [facility] Comment on above: Performed By: #### L 100.0100, L501.9520, L500.4100, L500.4050 #### [facility] [address] [place], [address] Nucleated RBC (Bld) [#/Vol] 0 10*3/uL Normal 0-5 [facility] Comment on above: Performed By: #### L 100.0100, L501.9520, L500.4100, L500.4050 #### [facility] [address] [place], [address] Platelet mean volume (Bld) [Entitic vol] 9.4 fL Normal 6.2-12.0 [facility] Comment on above: Performed By: #### L 100.0100, L501.9520, L500.4100, L500.4050 #### [facility] [address] [place], [address] Platelets (Bld) [#/Vol] 246 10*3/uL Normal 150-450 [facility] Comment on above: Performed By: #### L 100.0100, L501.9520, L500.4100, L500.4050 #### [facility] [address] [place], [address] RBC (Bld) [#/Vol] 4.86 10*6/uL Normal 4.2-5.4 [facility] Comment on above: Performed By: #### L 100.0100, L501.9520, L500.4100, L500.4050 #### [facility] [address] [place], [address] RDW SD 43.1 fl Normal 35.1-43.9 [facility] Comment on above: Performed By: #### L 100.0100, L501.9520, L500.4100, L500.4050 #### [facility] [address] [place], [address] WBC (Bld) [#/Vol] 4.3 10*3/uL Low 4.4-11.[address] [facility] Comment on above: Performed By: #### L 100.0100, L501.9520, L500.4100, L500.4050 #### [facility] [address] [place], [address] Comprehensive Metabolic Prof ilon 12-02-2023 Albumin [Mass/Vol] 3.4 g/dL Normal 3.2-5.[address] [facility] Comment on above: Performed By: #### L 100.0100, L501.9520, L500.4100, L500.4050 #### [facility] [address] [place], [address] Albumin/Globulin [Mass ratio] 0.8 {ratio} Low 0.9-2.4 [facility] Comment on above: Performed By: #### L 100.0100, L501.9520, L500.4100, L500.4050 #### [facility] [address] [place], [address] ALK P 41 U/L Low 45-117 [facility] Comment on above: Performed By: #### L 100.0100, L501.9520, L500.4100, L500.4050 #### [facility] [address] [place], [address] ALT [Catalytic activity/Vol] 25 U/L Normal 13-56 [facility] Comment on above: Performed By: #### L 100.0100, L501.9520, L500.4100, L500.4050 #### [facility] [address] [place], [address] AST [Catalytic activity/Vol] 20 U/L Normal 15-37 [facility] Comment on above: Performed By: #### L 100.0100, L501.9520, L500.4100, L500.4050 #### [facility] [address] [place], [address] Bilirubin [Mass/Vol] 0.50 mg/dL Normal 0.20-1.00 [facility] Comment on above: Result Comment: For patients on eltrombopag therapy, use of Dimension [place] TBIL is not recommended. Performed By: #### L 100.0100, L501.9520, L500.4100, L500.4050 #### [facility] [address] [place], [address] BUN/CRE 20.3 RATIO High 10-20 [facility] Comment on above: Performed By: #### L 100.0100, L501.9520, L500.4100, L500.4050 #### [facility] [address] [place], [address] CA,Total 9.9 mg/dL Normal 8.5-10.1 [facility] Comment on above: Performed By: #### L 100.0100, L501.9520, L500.4100, L500.4050 #### [facility] [address] [place], [address] Chloride [Moles/Vol] 105 mmol/L Normal 98-107 [facility] Comment on above: Performed By: #### L 100.0100, L501.9520, L500.4100, L500.4050 #### [facility] [address] [place], [address] CO2 [Moles/Vol] 31.0 mmol/L Normal 21.0-32.0 [facility] Comment on above: Performed By: #### L 100.0100, L501.9520, L500.4100, L500.4050 #### [facility] [address] [place], [address] Creatinine [Mass/Vol] 0.84 mg/dL Normal 0.55-1.02 [facility] Comment on above: Result Comment: The validity of the calculated GFR GFRAA in patients over 70 years has not been determined. Clinical correlation is essential. Performed By: #### L 100.0100, L501.9520, L500.4100, L500.4050 #### [facility] [address] [place], [address] EST GFR - AA 84 mL/min Normal >60 [facility] Comment on above: Result Comment: Afri can [place] GFR Calc Performed By: #### L 100.0100, L501.9520, L500.4100, L500.4050 #### [facility] [address] [place], [address] GAP 4 Low 5-15 [facility] Comment on above: Performed By: #### L 100.0100, L501.9520, L500.4100, L500.4050 #### [facility] [address] [place], [address] GFR/1.73 sq M.predicted among non-blacks MDRD (S/P/Bld) [Vol rate/Area] 70 mL/min/{1.73_m2} Normal >60 [facility] Comment on above: Result Comment: Non- GFR Calc Performed By: #### L 100.0100, L501.9520, L500.4100, L500.4050 #### [facility] [address] [place], [address] Globulin (S) [Mass/Vol] 4.4 g/dL High 2.2-4.2 [facility] Comment on above: Performed By: #### L 100.0100, L501.9520, L500.4100, L500.4050 #### [facility] [address] [place], [address] Glucose [Mass/Vol] 102 mg/dL Normal 74-[address] [facility] Comment on above: Result Comment: Fast ing Glucose result from 100 to 125 mg/dL suggests IMPAIRED HOMEOSTASIS per A.D.A. criteria. Performed By: #### L 100.0100, L501.9520, L500.4100, L500.4050 #### [facility] [address] [place], [address] Potassium [Moles/Vol] 4.0 mmol/L Normal 3.5-5.1 [facility] Comment on above: Performed By: #### L 100.0100, L501.9520, L500.4100, L500.4050 #### [facility] [address] [place], [address] Sodium [Moles/Vol] 140 mmol/L Normal 136-[address] [facility] Comment on above: Performed By: #### L 100.0100, L501.9520, L500.4100, L500.4050 #### [facility] [address] [place], [address] T PROT 7.8 g/dL Normal 6.4-8.2 [facility] Comment on above: Performed By: #### L 100.0100, L501.9520, L500.4100, L500.4050 #### [facility] [address] [place], [address] Urea nitrogen [Mass/Vol] 17 mg/dL Normal 7-18 [facility] Comment on above: Performed By: #### L 100.0100, L501.9520, L500.4100, L500.4050 #### [facility] [address] [place], [address] Lipid Profileon 12-02-2023 Cholesterol [Mass/Vol] 202 mg/dL High 200 [facility] Comment on above: Result Comment: <200 mg/dL Desirable 200-240 mg/dL Borderline >240 mg/dL High Risk Performed By: #### L 100.0100, L501.9520, L500.4100, L500.4050 #### [facility] [address] [place], [address] Cholesterol in HDL [Mass/Vol] 104 mg/dL Normal [facility] Comment on above: Result Comment: The drugs N-Acetylcysteine and Metamizole may falsely depress this assay. Reference Range HDL <40 mg/dL Low HDL Cholesterol HDL >or= 60 mg/dL High HDL Cholesterol Performed By: #### L 100.0100, L501.9520, L500.4100, L500.4050 #### [facility] [address] [place], [address] Cholesterol in LDL [Mass/Vol] 89 mg/dL Normal 0-130 [facility] Comment on above: Performed By: #### L 100.0100, L501.9520, L500.4100, L500.4050 #### [facility] [address] [place], [address] Cholesterol in VLDL [Mass/Vol] 9 mg/dL Normal 5-40 [facility] Comment on above: Performed By: #### L 100.0100, L501.9520, L500.4100, L500.4050 #### [facility] [address] [place], [address] Triglyceride [Mass/Vol] 46 mg/dL Normal [facility] Comment on above: Result Comment: The drugs N-Acetylcysteine and Metamizole may falsely depress this assay. Serum Triglycerides Reference Interval Normal <150 mg/dL Borderline high 150 - 199 mg/dL High 200 - 499 mg/dL Very High > or = 500 mg/dL Performed By: #### L 100.0100, L501.9520, L500.4100, L500.4050 #### [facility] [address] [place], [address] Thyroid Stim Hormone (TSH)on 12-02-2023 TSH 1.150 uIU/mL Normal 0.358-3.74 0 [facility] Comment on above: Performed By: #### L 100.0100, L501.9520, L500.4100, L500.4050 #### [facility] [place], [address] CNCOon 11-30-2023 CNCO Letter Text Normal [facility] CNOVon 10-23-2023 CNOV Office Visit (PULMWS ) ONDINA DE LA FUENTE ([id number]) 1945 F Date Time Provider Department 10/23/23 9:30 AM ANUSHKA SHINE PULMWS During your visit today, we recorded the following information about you: Anushka Shine MD 10/23/2023 10:10 AM Signed . [facility] [place] Note Patient name: Ondina De La Fuente [...] Flonase nasal spray Anushka Shine MD [facility] [place] Allergies As of Date: 10/23/2023 (No Known Allergies) Date Reviewed: 10/23/2023 Reviewed by: Anushka Shine MD - Fully Assessed Reason for Visit: Established Patient [175] Cmt: 6 week follow up Primary Visit Diagnosis:Cough variant asthma [J45.991] Other Visit Diagnoses:Gastroesophageal reflux disease, unspecified whether esophagitis present [K21.9] Nasal (more content not included)... Normal [facility] GRPon 09-09 A. alternata IgE Qn (S) <0.35 Normal <0.35 [facility] Comment on above: Order Comment: Rafael cain Type: BLOOD SPECIMEN Ordering Facility: [facility] Address: [address] [place] [address] Performed By: #### G RTLKS #### [facility] CLIA [id number] [address] [place] [address] [place] A. alternata IgE RAST class (S) Class [address] [facility] Comment on above: Order Comment: Specmisael cain Type: BLOOD SPECIMEN Ordering Facility: [facility] Address: [address] [place] [address] Performed By: #### G RTLKS #### [facility] CLIA [id number] [address] [place] [address] [place] house dust mite IgE Qn (S) <0.35 Normal <0.35 [facility] Comment on above: Order Comment: Speci men Type: BLOOD SPECIMEN Ordering Facility: [facility] Address: [address] [place] [address] Performed By: #### G RTLKS #### [facility] CLIA [id number] [address] [place] [address] [place] house dust mite IgE RAST class (S) Class [address] [facility] Comment on above: Order Comment: Speci men Type: BLOOD SPECIMEN Ordering Facility: [facility] Address: [address] [place] [address] Performed By: #### G RTLKS #### [facility] CLIA [id number] [address] [place] [address] [place] C. herbarum IgE Qn (S) <0.35 Normal <0.35 [facility] Comment on above: Order Comment: Speci men Type: BLOOD SPECIMEN Ordering Facility: [facility] Address: [address] [place] [address] Performed By: #### G RTLKS #### [facility] CLIA [id number] [address] [place] [address] [place] C. herbarum IgE RAST class (S) Class [address] [facility] Comment on above: Order Comment: Speci men Type: BLOOD SPECIMEN Ordering Facility: [facility] Address: [address] [place] [address] Performed By: #### G RTLKS #### [facility] CLIA [id number] [address] [place] [address] [place] Cat dander IgE Qn (S) <0.35 Normal <0.35 [facility] Comment on above: Order Comment: Speci men Type: BLOOD SPECIMEN Ordering Facility: [facility] Address: [address] [place], [place] [id number] Performed By: #### G RTLKS #### [facility] CLIA [id number] [address] [place] [address] [place] Cat dander IgE RAST class (S) Class [address] [facility] Comment on above: Order Comment: Speci men Type: BLOOD SPECIMEN Ordering Facility: [facility] Address: [address] [place] [address] Performed By: #### G RTLKS #### [facility] CLIA [id number] [address] [place] [address] [place] Common Ragweed IgE Qn (S) <0.35 Normal <0.35 [facility] Comment on above: Order Comment: Speci men Type: BLOOD SPECIMEN Ordering Facility: [facility] Address: [address] [place] [address] Performed By: #### G RTLKS #### [facility] CLIA [id number] [address] [place] [address] [place] Common Ragweed IgE RAST class (S) Class [address] [facility] Comment on above: Order Comment: Speci men Type: BLOOD SPECIMEN Ordering Facility: [facility] Address: [address] [place] [address] Performed By: #### G RTLKS #### [facility] CLIA [id number] [address] [place] [address] [place] Dog dander IgE Qn (S) <0.35 Normal <0.35 [facility] Comment on above: Order Comment: Speci men Type: BLOOD SPECIMEN Ordering Facility: [facility] Address: [address] [place], [place] [id number] Performed By: #### G RTLKS #### [facility] CLIA [id number] [address] [place] [address] [place] Dog dander IgE RAST class (S) Class [address] [facility] Comment on above: Order Comment: Speci men Type: BLOOD SPECIMEN Ordering Facility: [facility] Address: [address] [place], [place] [id number] Performed By: #### G RTLKS #### [facility] CLIA [id number] [address] [place] [address] [place] Goosefoot IgE Qn (S) <0.35 Normal <0.35 [facility] Comment on above: Order Comment: Speci men Type: BLOOD SPECIMEN Ordering Facility: [facility] Address: [address] [place] [address] Performed By: #### G RTLKS #### [facility] CLIA [id number] [address] [place] [address] [place] Goosefoot IgE RAST class (S) Class [address] [facility] Comment on above: Order Comment: Speci men Type: BLOOD SPECIMEN Ordering Facility: [facility] Address: [address] [place] [address] Performed By: #### G RTLKS #### [facility] CLIA [id number] [address] [place] [address] [place] blue grass IgE Qn (S) <0.35 Normal <0.35 [facility] Comment on above: Order Comment: Speci men Type: BLOOD SPECIMEN Ordering Facility: [facility] Address: [address] [place] [address] Performed By: #### G RTLKS #### [facility] CLIA [id number] [address] [place] [address] [place] blue grass IgE RAST class (S) Class [address] [facility] Comment on above: Order Comment: Speci men Type: BLOOD SPECIMEN Ordering Facility: [facility] Address: [address] [place] [id number] Performed By: #### G RTLKS #### [facility] CLIA [id number] [address] [place] [address] [place] ELISA [place] IgE Qn (S) <0.35 Normal <0.35 [facility] Comment on above: Order Comment: Speci men Type: BLOOD SPECIMEN Ordering Facility: [facility] Address: [address] [place] [address] Performed By: #### G RTLKS #### [facility] CLIA [id number] [address] [place] [address] [place] ELISA [place] IgE RAST class (S) Class [address] [facility] Comment on above: Order Comment: Speci men Type: BLOOD SPECIMEN Ordering Facility: [facility] Address: [address] [place] [address] Performed By: #### G RTLKS #### [facility] CLIA [id number] [address] [place] [address] [place] ELISA [place] IgE Qn (S) <0.35 Normal <0.35 [facility] Comment on above: Order Comment: Speci men Type: BLOOD SPECIMEN Ordering Facility: [facility] Address: [address] [place] [address] Performed By: #### G RTLKS #### [facility] CLIA [id number] [address] [place] [address] [place] ELISA [place] IgE RAST class (S) Class [address] [facility] Comment on above: Order Comment: Speci men Type: BLOOD SPECIMEN Ordering Facility: [facility] Address: [address] [place] [address] Performed By: #### G RTLKS #### [facility] CLIA [id number] [address] [place] [address] [place] Eosinophils Auto (Bld) [#/Vo l]on 09-10-2023 Eosinophils (Bld) [#/Vol] 0.39 10*3/uL Normal <0.46 [facility] Comment on above: Order Comment: Speci men Type: BLOOD SPECIMEN Ordering Facility: [facility] Address: [address] [place] [address] Performed By: #### 7 11-2 #### [facility] CLIA [id number] [address] [place] [address] [place] ELISA IgE SerPl-aCncon 09-10-2023 IgE Qn 117.0 kU/l High <114.0 [facility] Comment on above: Order Comment: Speci men Type: BLOOD SPECIMEN Ordering Facility: [facility] Address: [address] [place] [address] Performed By: #### 1 9113-0 #### [facility] CLIA [id number] [address] [place] [address] [place] ELISA CNOVon 09-09-2023 CNOV Office Visit (PULMWS ) ONDINA DE LA FUENTE ([id number]) 1945 F Date Time Provider Department 09/09/23 1:30 PM ANUSHKA SHINE PULMWS During your visit today, we recorded the following information about you: Pulse Respiration Blood pressure Weight 92/minute 15/minute 122/74 67.6 kg Height 1.646 m Sarai Brunson LPN 09/09/2023 1:44 PM Signed Intake information documented in the prior visit with Respiratory Therapy today. Anushka Shine MD 09/09/2023 3:16 PM Signed . Respiratory [place] Note Patient name: Ondina De La Fuente [...] 122/74 Pulse 92 Resp 15 Ht 5' 4.8 (1.65m) Wt 149 lb (67.6kg) SpO2 94% BMI 24.95 kg/(m2). General Appearance: Elderly female, NAD. Skin: Skin color, texture, turgor normal, no suspicious rashes or lesions. Head: Normocephalic, no masses, lesions, tenderness or abnormalities. Nose: Nasal co (more content not included)... Normal [facility] NITRIC OXIDE, EXHALEDon 07-0 Mervin Orona, MECHANIC'S ASSISTANT 09/09/2023 9:46 AM RESPIRATORY THERAPY ORAL EXHALED [...] September 09, 2023 TIME: 9:46 AM [facility] SPIROMETRY - BASELINE AND PO ST DILATORon 09-09-2023 QGA00-81% POST (L/S) 1.90 L[facility] T[facility]61-89% PRE (L/S) 1.26 L/S [facility] FEV1 PRE (L) 1.92 L [facility] FEV1/FVC POST (%) 77 % [facility] FEV1/FVC PRE (%) 72 % [facility] FEV1_POST (L) 2.12 L [facility] FVC POST (L) 2.77 L [facility] FVC PRE (L) 2.69 L [facility] PEF POST (L/S) 5.58 L/S [facility] PEF PRE (L/S) 5.10 L/S [facility] [address] [place] [address] Test Date: 2023-09-09 Pat Name: ONDINA DE LA FUENTE Department: Room: Gender: Female 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 //ES PULMONARY FUNCTION LAB [facility] XR CHEST 2V FRONTAL/LATon XR CHEST [...] tissues: Unremarkable. IMPRESSION: No acute radiographic abnormality. Electronic Science Teacher: PSCB Transcribe Date/Time: Sep 10 2023 4:48P Dictated by : RHONDA RODRIGUEZ MD This examination was interpreted and the report reviewed and electronically signed by: RHONDA RODRIGUEZ MD on Sep 10 2023 4:50PM EST [id number] Normal [facility] Absolute lymphocyte countOrd ered By: Shanell De Leonshady on 11-11-2022 Lymphocytes Auto (Unsp spec) [#/Vol] 0.59 10*3/uL 0.83-4.51 [facility] Basophil percentageOrdered B y: Shanell Rodgers on 11-11-2022 Basophils/100 WBC (Bld) 0.3 % 0-1 [facility] Chloride [Moles/Vol] 107 mmol/L 98-107 [facility] Eosinophils/100 WBC (Bld) 10.4 % 0-5 [facility] Glucose [Mass/Vol] 115 mg/dL 74-[address] [facility] Comment on above: Fasting Glucose resu lt from 100 to 125 mg/dL suggests IMPAIRED HOMEOSTASIS per A.D.A. criteria. Neutrophils (Bld) [#/Vol] 1.6 10*3/uL 2.0-7.7 [facility] Neutrophils/100 WBC (Bld) 52.9 % 47-70 [facility] Potassium [Moles/Vol] 3.9 mmol/L 3.5-5.1 [facility] Sodium [Moles/Vol] 140 mmol/L 136-[address] [facility] WBC (Bld) [#/Vol] 3.1 10*3/uL 4.4-11.[address] [facility] Blood erythrocytes count (nu mber/volume)Ordered By: Shanell Rodgers on 11-11-2022 RBC (Bld) [#/Vol] 4.73 10*6/uL 4.2-5.4 [facility] Blood hemoglobin measurement (mass/volume)Ordered By: Shanell Rodgers on 11-11-2022 Hemoglobin (Bld) [Mass/Vol] 14.2 g/dL 12.0-15.0 [facility] Blood lymphocytes/100 leukoc ytesOrdered By: Shanell Rodgers on 11-11-2022 Lymphocytes/100 WBC (Bld) 19.2 % 19-41 [facility] Blood manual differential co mment interpretation (narrative result)Ordered By: Shanell Rodgers on 11-11-2022 Manual differential comment Kush (Bld) [Interp] SCANNED [facility] Blood monocytes/100 leukocyt esOrdered By: Shanell Rodgers on 11-11-2022 Monocytes/100 WBC (Bld) 16.9 % 0-10 [facility] Blood platelet mean volumeOr dered By: Shanell Rodgers on 11-11-2022 Platelet mean volume (Bld) [Entitic vol] 9.6 fL 6.2-12.0 [facility] Determination of erythrocyte mean corpuscular volume (MCV)Ordered By: Shanell Rodgers on 11-11-2022 MCV (RBC) [Entitic vol] 95.6 fL 81-99 [facility] Hematocrit Auto (Bld) [Volum e fraction]Ordered By: Shanell Rodgers on 11-11-2022 Hematocrit (Bld) [Volume fraction] 45.2 % 37-47 [facility] Laboratory - Chemistry and C hemistry - challengeOrdered By: Shanell Rodgers on 11-11-2022 CO2 [Moles/Vol] 30.0 mmol/L 21.0-32.0 [facility] Urea nitrogen/Creatinine [Mass ratio] 20.9 mg/mg 10-20 [facility] Laboratory - Hematology and Cell countsOrdered By: Shanell Rodgers on 11-11-2022 Erythrocyte distribution width (RBC) [Entitic vol] 44.2 fL 35.1-43.9 [facility] Erythrocyte distribution width (RBC) [Ratio] 12.5 % 11.6-14.6 [facility] Immature granulocytes/100 WBC (Bld) 0.300 % 0.0-0.9 [facility] Comment on above: IG% - Immature Granu locytes (promyelocytes, myelocytes and metamyelocytes) > 1% indicates that a LEFT SHIFT is Present. MCH (RBC) [Entitic mass] 30.0 pg 27.0-32.0 [facility] Nucleated RBC/100 WBC (Bld) [Ratio] 0 % 0-5 [facility] MCHC Auto (RBC) [Mass/Vol]Or dered By: Shanell Rodgers on 11-11-2022 MCHC (RBC) [Mass/Vol] 31.4 g/dL 32-36 [facility] No Panel InformationOrdered By: Shanell Rodgers on 11-11-2022 Estimated Creatinine Clearance Calc 45.09 ml/min [facility] Estimated GFR (MDRD) Amer 94 mL/min >60 [facility] Comment on above: GFR Calc Estimated GFR (MDRD) Non-Af Amer 78 mL/min >60 [facility] Comment on above: Non- GFR Calc Troponin I High Sensitivity 4 pg/mL 3.0-54.0 [facility] Comment on above: Please Note: New Trinity t Units and Gender Specific Reference Ranges. For more information see Policy Stat Procedure [place] High Sensitivity Troponin (TNIH) and attachments. Platelets bldOrdered By: Esthela Rodgers on 11-11-2022 Platelets (Bld) [#/Vol] 215 10*3/uL 150-450 [facility] Review by pathologistOrdered By: Shanell Rodgers on 11-11-2022 Pathologist review Kush (Unsp spec) [Interp] May foll [facility] Serum or plasma calcium ginny urement (mass/volume)Ordered By: Shanell Rodgers on 11-11-2022 Calcium [Mass/Vol] 9.2 mg/dL 8.5-10.[address] [facility] Serum or plasma creatinine m easurement (mass/volume)Ordered By: Shanell Rodgers on 09-11-2023 Creatinine [Mass/Vol] 0.76 mg/dL 0.55-1.02 [facility] Comment on above: The validity of the calculated GFR & GFRAA in patients over 70 years has not been determined. Clinical correlation is essential. Serum or plasma urea nitroge n measurement (mass/volume)Ordered By: Shanell Rodgers on 11-11-2022 Urea nitrogen [Mass/Vol] 16 mg/dL 7-18 [facility] Thin prep Papanicolaou smear with manual screeningOrdered By: Shanell Rodgers on 11-11-2022 Thin prep Papanicolaou smear with manual screening 3 5-15 [facility] JERMAINE SCREENING W TOMOon 03-22 [facility] ANKLE COMP MIN 3 VWS RTon [...] TELLEZ M.D. Signed By: CORINE TELLEZ M.D. [facility] 07-08-2021 [facility] REPORT [facility] DATE OF SERVICE: 10/2021 REASON FOR VISIT: [...] ASSESSMENT: Fractured tip of right fibula. [facility] PATIENT NAME: ONDINA DE LA FUENTE [address] [place] MEDICAL REC #: [id number] [place] [address] [facility] REPORT STATCARE PHYSICIAN PLAN: Clinical findings [...] and get an appointment. Dena Sims MD [id number] [facility] File#: [id number] END OF DOCUMENT / CHANGE LOG FOLLOWS Last Edited By Elec. Signed By Dena Sims MD #PAWPR Dena Sims MD #PAWPR on 07/11/2021 10:09 ET on 07/11/2021 10:09 ET Revision Number - 2 Verified/Reviewed by 07/11/21 [id number] BOOMPR [facility] PATIENT NAME: ONDINA DE LA FUENTE [address] [place] MEDICAL REC #: [id number] [place] [address] [facility] REPORT STATCARE PHYSICIAN Normal [facility] SIMONE MAMMO SCREENINGon 01-10 SIMONE MAMMO SCREENING BILATERAL DIGITAL S CREENING MAMMOGRAM TOMOSYNTHESIS WITH CAD: 01/10/2021 Ordering Physician: Navin Bass M.D. CLINICAL: Screening. Comparison is made to exams dated: 03/22/2019 mammogram - [facility] and 03/09/2018 mammogram - [facility]. The tissue of both breasts [...] clinical grounds. Ulysses Carlton M.D. tlv/penrad:01/10/2021 09:23:23 Senior Oracle Soa Developer: Lisa MARTINEZ(Emre)(M), [facility] letter sent: Mammography Normal BI-RADS: 2 Benign Reported By: ULYSSES CARLTON M.D. Signed By: ULYSSES CARLTON M.D. Normal [facility] TSHon 01-01-2021 TSH 0.990 UIU/ML Normal 0.358-3.74 0 [facility] Comment on above: Result Comment: 3rd generation ultra sensitive TSH Performed By: #### L [id number] #### [facility] [address] [place] [address] Vital Signs Date Time Vital Sign Value Performing Clinician Miles henriquez 10-08-2024 11:55-0400 Body height 170.18 cm Andrea Moreno MD Work Phone: [facility] 10-08-2024 11:55-0400 Body mass index (BMI) [Ratio] 23.2 kg/m2 Andrea Moreno MD Work Phone: [facility] 10-08-2024 11:55-0400 Body temperature 98.2 [degF] Andrea Moreno MD Work Phone: [facility] 10-08-2024 11:55-0400 Body weight 67.35 kg Andrea Moreno MD Work Phone: [facility] 10-08-2024 11:55-0400 Diastolic blood pressure 76 mm[Hg] Andrea Moreno MD Work Phone: [facility] 10-08-2024 11:55-0400 Heart rate 72 /min Andrea Moreno MD Work Phone: [facility] 10-08-2024 11:55-0400 Respiratory rate 16 /min Andrea oMreno MD Work Phone: [facility] 10-08-2024 11:55-0400 SaO2% (BldA) [Mass fraction] 96 % Andrea Moreno MD Work Phone: [facility] 10-08-2024 11:55-0400 Systolic blood pressure 144 mm[Hg] Andrea Moreno MD Work Phone: [facility] 09-09-2023 13:22-0400 Body height 164.6 cm Anushka Shine MD Work Phone: [facility] 09-09-2023 13:22-0400 Body mass index (BMI) [Ratio] 24.95 kg/m2 Anushka Shine MD Work Phone: [facility] 09-09-2023 13:22-0400 Body weight 67.59 kg Anushka Shine MD Work Phone: [facility] 09-09-2023 13:22-0400 Diastolic blood pressure 74 mm[Hg] Anushka Shine MD Work Phone: [facility] 09-09-2023 13:22-0400 Heart rate 92 /min Anushka Shine MD Work Phone: [facility] 09-09-2023 13:22-0400 Respiratory rate 15 /min Anushka Shine MD Work Phone: [facility] 09-09-2023 13:22-0400 SaO2% (BldA) [Mass fraction] 94 % Anushka Shine MD Work Phone: [facility] 09-09-2023 13:22-0400 Systolic blood pressure 122 mm[Hg] Anushka Shine MD Work Phone: [facility] 11-11-2022 11:40-0400 Diastolic blood pressure 61 mm[Hg] [facility] 11-11-2022 11:40-0400 Heart rate 64 /min [facility] 11-11-2022 11:40-0400 Respiratory rate 13 /min [facility] 11-11-2022 11:40-0400 SaO2% (BldA) [Mass fraction] 95 % [facility] 11-11-2022 11:40-0400 Systolic blood pressure 127 mm[Hg] [facility] 11-11-2022 09:09-0400 Body height 170.18 cm [facility] 11-11-2022 09:09-0400 Body mass index (BMI) [Ratio] 22.8 kg/m2 [facility] 11-11-2022 09:09-0400 Body temperature 95.1 [degF] [facility] 11-11-2022 09:09-0400 Body weight 66.31 kg [facility] Encounters Encounter Date Encounter Type Care Provider Facility Start: 10-08-2024 End: 10-08-2024 Patient encounter procedure Rodney Yoo PA -[facility] Work Phone: Start: 10-08-2024 End: 10-08-2024 ambulatory Andrea Moreno MD Work Phone: [facility] Start: 06-17-2024 End: 06-17-[address] Andrea Moreno MD -Outpatient [facility] Densitometry Work Phone: Start: 06-17-2024 End: 06-17-2024 ambulatory Andrea Moreno Facility:[facility] Start: 06-11-2024 End: 06-11-2024 ambulatory Andrea Moreno MD Work Phone: [facility] Work Phone: Start: 06-11-2024 End: 06-11-[address] Andrea Moreno MD -Laboratory, [place] Work Phone: Start: 06-11-2024 End: 06-11-2024 ambulatory Andrea Moreno Facility:[facility] Start: 05-20-2024 Encounter for genera l adult medical examination without abnormal findings Ck Maria Del Carmen [facility] Start: 04-19-2024 End: 04-19-2024 Refill Anushka Shine MD Work Phone: Pulmonary Medicine Comment on above: Refill Request Start: 01-23-2024 End: 01-23-2024 ambulatory ANUSHKA SHINE Facility:[facility] Start: 01-23-2024 End: 01-23-2024 Patient encounter procedure Anushka Shine MD Work Phone: Pulmonary Medicine Comment on above: Cough variant asthma (Primary Dx) Start: 12-02-2023 ambulatory Ck Joyce Facility :[facility] Start: 10-23-2023 End: 10-23-2023 ambulatory ANUSHKA SHINE Facility:[facility] Start: 10-23-2023 End: 10-23-2023 Patient encounter procedure Anushka Shine MD Work Phone: Pulmonary Medicine Comment on above: Cough variant asthma (Primary Dx); Gastroesophageal reflux disease, unspecified whether esophagitis present; Nasal polyposis Start: 09-10-2023 End: 09-10-2023 ambulatory ANUSHKA SHINE Facility:[facility] Start: 09-09-2023 End: 09-09-2023 ambulatory CK JOYCE Facility:[facility] Start: 09-09-2023 End: 09-09-2023 Patient encounter procedure Anushka Shine MD Work Phone: Pulmonary Medicine Comment on above: Chronic cough (Prima ry Dx); Small airways disease; Chronic pansinusitis Start: 09-09-2023 End: 09-09-2023 Patient encounter procedure [facility] Work Phone: [facility] Start: 09-09-2023 End: 09-09-2023 ambulatory [facility]m [facility] Work Phone: [facility] Comment on above: Spirometry Start: 09-09-2023 End: 09-09-2023 Subsequent hospital visit by physician Xr [facility] Work Phone: Radiology Comment on above: Cough, unspecified t ype [R05.9] Start: 01-14-2023 End: 01-14-2023 ambulatory [facility] Work Phone: Start: 01-14-2023 End: 01-14-2023 Discharged Recurring [facility]-Physical Therapy Work Phone: Start: 11-11-2022 End: 11-11-2022 Patient encounter procedure Lou Michel APRN.CNP Work Phone: [facility] Comment on above: Dizziness (Primary D x) Start: 11-11-2022 End: 11-11-2022 Emergency department patient visit [facility]-Emergency Department Work Phone: Start: 03-22-2022 End: 03-22-2022 Subsequent hospital visit by physician Screen/Diagnostic [facility] Comment on above: Encounter for screen ing mammogram for malignant neoplasm of breast [Z12.31] Start: 07-08-2021 End: 07-08-2021 Subsequent hospital visit by physician Dena Sims Work Phone: [facility] Comment on above: RT ANKLE INJURY FROM FALL Start: 12-21-2019 Patient encounter procedure Dena Sims MD Work Phone: [facility] Start: 12-21-2019 Progress Note Dena Sism MD [facility] Procedures Date Procedure Procedure Detail Performing Clinician [...] Pulmonary Medicine [address] [place] [address] Anushka Shine MD [address] [place] [address] 6MO OV Pulmonary Medicine Comment on above: 6MO OV Start: 03-03-2024 Advance Directive Discussion Advance Directive Discussion [facility] Start: 01-23-2024 End: 01-23-2024 Patient encounter procedure 01/23/2024 8:45 AM EST Office Visit Pulmonary Medicine [address] [place] [address] Anushka Shine MD [address] [place] [address] [place] [place] [id number] 3mo ov Pulmonary Medicine Comment on above: 3mo ov Start: 11-02-2023 Covid-19 Vaccine () Covid-19 Vaccine () [facility] Start: 11-02-2023 Influenza vaccination Influenza Vacc ine (#1) [facility] Start: 10-21-2023 End: 10-21-2023 Patient encounter procedure 10/21/2023 12:15 PM EDT Office Visit Pulmonary Medicine [address] [place] [address] Anushka Shine MD [address] [place] [address] 6 WK F/U OK PER DR SHINE Pulmonary Medicine Comment on above: 6 WK F/U OK PER DR Beni ELAINE Start: 09-10-2023 End: 09-10-2023 ambulatory 09/10/2023 8:30 AM EDT Results Only [place] [facility] [address] [place] [address] [place] [facility] Start: 09-09-2023 End: 12-09-2023 [facility] Lab Routine Chronic cough Expected: 09/09/2023, Expires: 12/09/2023 [facility] Work Phone: Comment on above: Expected: 09/09/2023 , Expires: 12/09/2023 Start: 09-09-2023 End: 12-09-2023 Eosinophils [#/volume] in Blood EOSINOPHIL ABS COUNT Lab Routine Chronic cough Expected: 09/09/2023, Expires: 12/09/2023 [facility] Comment on above: Expected: 09/09/2023 , Expires: 12/09/2023 Start: 09-09-2023 End: 12-09-2023 IgE [Units/volume] in Serum or Plasma IMMUNOGLOBULIN E Lab Routine Chronic cough Expected: 09/09/2023, Expires: 12/09/2023 [facility] Comment on above: Expected: 09/09/2023 , Expires: 12/09/2023 Start: 03-03-2023 Advance Directive Discussion Advance Directive Discussion [facility] Start: 03-03-2023 Behavioral Health Screening Behavioral Health Screening [facility] Start: 11-01-2022 Covid-19 Vaccine () Covid-19 Vaccine () [facility] Start: 11-01-2022 Influenza vaccination INFLUENZA (#1) [facility] Start: 07-13-2022 COVID-19 VACCINE (5 - Pfizer series) COVID-19 VACCINE (5 - Pfizer series) [facility] Start: 03-03-2022 ADVANCE DIRECTIVE DISCUSSION ADVANCE DIRECTIVE DISCUSSION [facility] Start: 03-03-2022 DEPRESSION ASSESSMENT DEPRESSION ASS ESSMENT [facility] Start: 11-01-2021 Influenza vaccination INFLUENZA (#1) [facility] Start: 2019 RSV Vaccine (1 - 1-d ose 75+ series) RSV Vaccine (1 - 1-dose 75+ series) [facility] Start: 2009 BONE DENSITY BONE DENSITY [facility] Start: 2009 Pneumococcal Vaccine : 65+ (1 of 1 - PCV) Pneumococcal Vaccine: 65+ (1 of 1 - PCV) [facility] Start: 2009 PNEUMOCOCCAL: 65+ (1 - PCV) PNEUMOCOCCAL: 65+ (1 - PCV) [facility] Start: 2009 Screening for osteoporosis Bone Density Screening [facility] Start: 2004 RSV Vaccine (1 - 1-d ose 60+ series) RSV Vaccine (1 - 1-dose 60+ series) [facility] Start: 1994 Pneumococcal Vaccine : 50+ (1 of 1 - PCV) Pneumococcal Vaccine: 50+ (1 of 1 - PCV) [facility] Start: 1994 SHINGRIX VACCINE (1 of 2) SHINGRIX VACCINE (1 of 2) [facility] Start: 1989 DIABETES SCREEN DIABETES SCREEN [facility] Start: 1989 Diabetes Screening Diabetes Screenin g [facility] Start: 1963 Urine microalbumin profile [facility] Start: 1962 Annual PCP Team Division Director teena Disease Visit Annual PCP Team Chronic Disease Visit [facility] Start: 1962 Anxiety Screening Anxiety Screening [facility] Start: 1962 Depression Screening Depression Scre yesy [facility] Start: 1962 HEPATITIS C SCREENING HEPATITIS C SC JULIA [facility] Patient Education ED Dizziness, Uncertain Cause [facility] Work Phone: Patient referral [facility] Work Phone: SARS-CoV-2 (COVID-19 ) Ag [Presence] in Upper respiratory specimen by Rapid immunoassa [facility] XR Chest PA and Lateral XR CHEST 2V FRONTAL/LAT Radiology Routine Cough, unspecified type 09/09/2023 9:26 AM EDT [facility] Work Phone: Immunizations Immunization Date Immunization Notes Care Provider Court [place] 12-06-2019 influenza virus vacc ine, unspecified formulation Pulm Wstr Work Phone: [facility] Payers Date Payer Category Payer Self-pay 2022 Medicare HUMANA MEDICARE HUMANA GOLD PLUS [id number] 2022-Present [phone] [place] [id number] [facility] [id number] 2022 Medicare (Managed Care) HUMANA G OLD PLUS [id number] 2022 Private Health Insurance [id number] Unknown [id number] Unknown [id number] Unknown [id number] Unknown [id number] Social History Date Type Detail Facility Start: 11-11-2022 End: 11-11-2022 Tobacco smoking status NHIS Tobacco smoking consumption unknown [facility] Start: 1945 Sex Assigned At Not on file C [facility] Start: 1945 Sex Assigned At Female W [facility] Start: 11-11-2022 End: 10-23-2023 History of Social function [facility] Start: 11-11-2022 End: 10-23-2023 Area Deprivation Index [facility] National Score (1-10 0), lower number is lower risk 49 [facility] Start: 09-09-2023 End: 10-08-2024 Tobacco smoking status INIS Never smoked tobacco [facility] History of tobacco use Passive smoker [facility] Start: 09-09-2023 Tobacco use and exposure Smoke less tobacco non-user [facility] Start: 09-09-2023 Tobacco Comment smoked for 25 years [facility] Start: 06-17-2024 Sex Female (finding) [facility] Mental Status Date Assessment Result Facility 11-11-2022 Cognitive function Level Of Cons ciousness Awake;Alert;Appropriate;Follow s Commands [facility] Work Phone: Clinical Notes 12-21-2019 to 04-19-2024 [...] to resume Arnuity. They are currently in [place] for the winter. Patient phones requesting refills as follows: Requested Prescriptions Pending Prescriptions Disp Refills fluticasone furoate (ARNUITY ELLIPTA) 100 mcg/actuation inhaler 1 Each 5 Sig: Inhale 1 Puff as instructed once daily. Please review and advise. Sarai Brunson LPN [facility] 04-19-2024 Miscellaneous Notes Formatting of this note is different fro m the original. FRANKO 01/23/24. Patient has had recurrence of cough and would like to resume Arnuity. They are currently in [place] for the winter. Patient phones requesting refills as follows: Requested Prescriptions Pending Prescriptions Disp Refills fluticasone furoate (ARNUITY ELLIPTA) 100 mcg/actuation inhaler 1 Each 5 Sig: Inhale 1 Puff as instructed once daily. Please review and advise. Sarai Brunson LPN documented in this encounter [facility] 01-23-2024 Instructions Anushka Shine MD - 01/23/2024 9:20 AM EST If cough recurs then start inhaled corticosteroid first and if cough persists after restarting inhaler then restart stomach medication documented in this encounter [facility] 01-23-2024 History of Present illness Narrative Formatting of this note is different fro m the original. Images from the original note were not included. . [facility] [place] Note Patient name: Ondina De La Fuente [...] sooner with problems Anushka Shine MD [facility] [place] documented in this encounter [facility] 01-23-2024 Note HNO ID: [id number] Author: ANUSHKA SHINE MD Service: ? Author Type: Physician Type: Progress Notes Filed: 01/23/2024 11:14 Note Text: . [facility] [place] Note Patient name: Ondina De La Fuente [...] sooner with problems Anushka Shine MD [facility] [place] [facility] 10-23-2023 History of Present illness Narrative Formatting of this note is different fro m the original. Images from the original note were not included. . [facility] [place] Note Patient name: Ondina De La Fuente [...] Flonase nasal spray Anushka Shine MD [facility] [place] documented in this encounter [facility] 10-23-2023 Note HNO ID: [id number] Author: ANUSHKA SHINE MD Service: ? Author Type: Physician Type: Progress Notes Filed: 10/23/2023 10:10 Note Text: . [facility] [place] Note Patient name: Ondina De La Fuente [...] Flonase nasal spray Anushka Shine MD [facility] [place] [facility] 09-09-2023 History of Present illness Narrative Formatting of this note is different fro m the original. Images from the original note were not included. . [facility] [place] Note Patient name: Ondina De La Fuente [...] 122/74 Pulse 92 Resp 15 Ht 5' 4.8 (1.65m) Wt 149 lb (67.6kg) SpO2 94% [...] methacholine challenge test Anushka Shine MD [facility] [place] documented in this encounter [facility] 09-09-2023 Note HNO ID: [id number] Author: ANUSHKA SHINE MD Service: ? Author Type: Physician Type: Progress Notes Filed: 09/09/2023 15:16 Note Text: . [facility] [place] Note Patient name: Ondina De La Fuente [...] 122/74 Pulse 92 Resp 15 Ht 5' 4.8 (1.65m) Wt 149 lb (67.6kg) SpO2 94% [...] Neurologic: Alert and (more content not included)... [facility] 09-09-2023 Nurse Note Intake information documented in the prior visit with Respiratory Therapy today. [facility] 09-09-2023 Nurse Note Intake information documented in the prior visit with Respiratory Therapy today. documented in this encounter [facility] 09-09-2023 Note HNO ID: [id number] Author: MERVIN ORONA, LINDA Service: ? Author Type: Registered Resp Therapist Type: Progress Notes Filed: 09/09/2023 09:47 Note Text: PULM FUNCTION: Provider: Ck Ayala MD Spirometry w/BD: 1 Exhaled Nitric Oxide: [address] [facility] 09-09-2023 Note HNO ID: [id number] Author: MERVIN ORONA RRT Service: ? Author [...] DATE: September 09, 2023 TIME: 9:[address] [facility] 09-09-2023 Procedure note Associated Order(s): NITRIC OXIDE, [...] DATE: September 09, 2023 TIME: 9:46 AM [facility] 09-09-2023 History of Present illness Narrative Formatting of this note might be differe nt from the original. PULM FUNCTION: Provider: Ck Ayala MD Spirometry w/BD: 1 Exhaled Nitric Oxide: 1 documented in this encounter [facility] 09-09-2023 Procedure note Associated Order(s): NITRIC [...] TIME: 9:46 AM documented in this encounter [facility] 09-09-2023 History of Present illness Narrative [...] PATIENT PRESENTS WITH AN IMPLANTABLE OR ATTACHED MUSIC AGENT: No RADIOLOGY DEPARTMENT: General X-ray: Exam(s) Completed: Chest X-Ray PERIPHERAL IV DATA: Not applicable SIGNED BY: RT Tamela(Emre) September 09, 2023 10:34 AM documented in this encounter [facility] 09-09-2023 Note HNO ID: [id number] Author: SHIRLEY VYAS RT(Emre) Service: ? Author Type: Technologist Type: Progress [...] PATIENT PRESENTS WITH AN IMPLANTABLE OR ATTACHED MUSIC AGENT: No RADIOLOGY DEPARTMENT: General X-ray: Exam(s) Completed: Chest X-Ray PERIPHERAL IV DATA: Not applicable SIGNED BY: RT Tamela(Emre) September 09, 2023 10:[address] [facility] 11-11-2022 History of Present illness Narrative Formatting [...] will take her. documented in this encounter [facility] 12-21-2019 History of Present illness Narrative [...] Patient understands and agrees. Dena Sims MD [id number] SSI File#: [id number] END OF DOCUMENT / CHANGE LOG FOLLOWS Last Edited By [employer]. Signed By Dena Sims MD #PAWPR Dena Sims MD #PAWPR on 12/23/2019 08:20 ET on 12/23/2019 08:20 ET Revision Number - 2 ^^^ Verified/Reviewed by 12/23/19819 [facility] PATIENT NAME: ONDINA DE LA FUENTE [facility] Dr[facility] Raza MEDICAL REC #: [id number] [place] [address] [facility] REPORT STATCARE PHYSICIAN documented in this encounter [facility] Evaluation note No assessment information availa [facility] Work Phone: Evaluation note Diagnosis Dizziness- Primary Dizziness and giddiness [facility] Diagnosis Cough, unspecified type- Primary [facility] Diagnosis Chronic cough- Primary Cough Small airways disease Other diseases of lung, not elsewhere classified Chronic pansinusitis Other chronic sinusitis [facility] Diagnosis Cough, unspecified type [facility] Diagnosis Cough variant asthma- Primary Gastroesophageal reflux disease, unspecified whether esophagitis present Nasal polyposis Unspecified nasal polyp [facility] Diagnosis Cough variant asthma- Primary documented in this encounter [facility] for referral (narrative)No reason for referral information availableWKet[facility] Work Phone: Summary Purpose Family History No Family History Records FoundNo Family History Records FoundNo Family History Records FoundNo Family History Records Found Advance Directives No Advanced Directives Records Found Advance Directive Response Recorded Date/ Time Living Will No November 11, 2022 9:30am Power of Winery Cellar Hand No November 9:30am Advance Directive Response Recorded Date/ Time Living Will No November 11, 2022 8:30am Power of Winery Cellar Hand No November 8:30am Chief Complaint and Reason [...] or prosecute any alcohol or drug abuse patient.[facility] the event this information is protected by the Federal Confidentiality of Alcohol and Drug Abuse Patient Records regulations: The Federal rules restrict any use of the information to criminally investigate or prosecute any alcohol or drug abuse patient.[facility] the event this information is protected by the Federal Confidentiality of Alcohol and Drug Abuse Patient Records regulations: The Federal rules restrict any use of the information to criminally investigate or prosecute any alcohol or drug abuse patient.[facility] Hospital[facility] the event this information is protected by the Federal Confidentiality of Alcohol and Drug Abuse Patient Records regulations: The Federal rules restrict any use of the information to criminally investigate or prosecute any alcohol or drug abuse patient.[facility] the event this information is protected by the Federal Confidentiality of Alcohol and Drug Abuse Patient Records regulations: The Federal rules restrict any use of the information to criminally investigate or prosecute any alcohol or drug abuse patient.[facility] Hospital[facility] the event this information is protected by the Federal Confidentiality of Alcohol and Drug Abuse Patient Records regulations: The Federal rules restrict any use of the information to criminally investigate or prosecute any alcohol or drug abuse patient.[facility] Hospital[facility] the event this information is protected by the Federal Confidentiality of Alcohol and Drug Abuse Patient Records regulations: The Federal rules restrict any use of the information to criminally investigate or prosecute any alcohol or drug abuse patient.[facility] Hospital[facility] the event this information is protected by the Federal Confidentiality of Alcohol and Drug Abuse Patient Records regulations: The Federal rules restrict any use of the information to criminally investigate or prosecute any alcohol or drug abuse patient.[facility] HospitalIn the event this information is protected by the Federal Confidentiality of Alcohol and Drug Abuse Patient Records regulations: The Federal rules restrict any use of the information to criminally investigate or prosecute any alcohol or drug abuse patient.[facility] Hospital[facility] the event this information is protected by the Federal Confidentiality of Alcohol and Drug Abuse Patient Records regulations: The Federal rules restrict any use of the information to criminally investigate or prosecute any alcohol or drug abuse patient.[facility] Hospital[facility] the event this information is protected by the Federal Confidentiality of Alcohol and Drug Abuse Patient Records regulations: The Federal rules restrict any use of the information to criminally investigate or prosecute any alcohol or drug abuse patient.[facility] INFORMATION SOURCE (unrecogn ized section and content) DATE CREATED AUTHOR 07/13/2021 [facility] [place] DATE CREATED AUTHOR AUTHOR'S ORGANIZ ATION 11/30/2023 [facility] DATE CREATED AUTHOR AUTHOR'S ORGANIZ ATION 01/26/2024 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 Relationship 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 Start Date End Date Ck Joyce MD [address] [facility] [address] [place] [address] PCP - General Family Medicine 03/19/22 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 Relationship Specialty Start Date End Date Ck Joyce MD [address] [place], [place] [address] PCP - General Family Medicine 03/19/22 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 Worker Relationship Specialty Start Date End Date Ck Joyce MD [address] [facility] [address] [place] [address] PCP - General Family Medicine 03/19/22 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 Worker Relationship Specialty Start Date End Date Ck Joyce MD [address] [facility] [address] [place] [address] PCP - General Family Medicine 03/19/22 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 Relationship Specialty Start Date End Date Ck Joyce MD [address] [facility] [address] [place] [address] PCP - General Family Medicine 03/19/22 Team [...] 2024 Team Status: Active Member Role/Relationship Status Lisa Moreno MD Primary Care Provider Active Team Status: Inactive Member Role/Relationship Status Lisa [...] October 08, 2024 End: October 08, 2024 ANAI Rossi Attending Provider Active Sta rt: October 08, [...] Spirometry Specialty Diagnoses / Procedures [facility] Diagnoses Cough, unspecified type Procedures SPIROMETRY - BASELINE AND POST DILATOR BRNCDILAT RSPSE SPMTRY PRE&POST-BRNCDILAT ADMN Ck Ayala MD [address] [place] [address] [address] Referral ID Status Reason Start Date Expiration Date V isits Requested Visits Authorized [id number] Closed Auto-Generate d Referral 09/01/2023 09/30/2024 1 1 Specialty Diagnoses / Procedures [facility] [place] Diagnoses Cough, unspecified type Procedures NITRIC OXIDE, EXHALED NITRIC OXIDE GAS DETERMINATION Ck Ayala MD [address] [place] [address] [facility] [place] [facility] [place] [address] Referral ID Status Reason Start Date Expiration Date V isits Requested Visits Authorized [id number] Closed Auto-Generate d Referral 09/01/2023 09/30/2024 1 1 Reason Comments New Patient Cough Reason Comments Established Patient 6 week follow up Reason Comments Established Patient 3 month follow up [facility] Cough Reason Onset Date Comments Refill Request [...] BE BASED ON THE PRIMARY CLINICAL RECORDS. [employer] provides no warranty or guarantee of the accuracy or completeness of information in this document.
== END 2024-12-02 23:24 | disposition home or self-care (01) ==
PROVIDERS: Emergency Provider Emergency Medicine; PCP Family Medicine; Visit Provider Emergency Medicine
DX: N13.2 Hydronephrosis with renal and ureteral calculous obstruction (principal); K57.30 Diverticulosis of large intestine without perforation or abscess without bleeding; N28.89 Other specified disorders of kidney and ureter; R82.71 Bacteriuria; E03.9 Hypothyroidism, unspecified; Z87.442 Personal history of urinary calculi
CPT/HCPCS: 74176; 80053; 81001; 85025; 87086; 87088; 96361; 96374; 96375; 99284; A4216; J0696; J2405

== ENCOUNTER → 2024-12-02 | Outpatient (CLI) | payer MEDICARE, SELFPAY ==
--- OUTSIDE RECORDS SUMMARY | 2024-12-03 00:57 | XMS RPT_ITS | CCD ---
Author Organization [facility] CliniSywa Care Team Providers Care Flag Maker Name Role Phone Unavailable Primary Care Provider Unavaildwight e Ck Joyce MD Primary Care Provider Ck Joyce MD Primary Care Provider CK JOYCE Primary Care Unavailable SANJAY, CK Referring Unavailable MARIA DEL CARMEN, CK Primary Care Unavailable SANJAY, CK Referring Unavailable MARIA DEL CARMEN, CK Primary Care Unavailable SANJAY, CK Referring Unavailable ANUSHKA SHINE Attending Unavailable MRAIA DEL CARMEN, CK Primary Care Unavailable ANUSHKA SHINE Attending Unavailable MARIA DEL CARMEN, CK Primary Care Unavailable ANUSHKA SHINE Referring Unavailable MARIA DEL CARMEN, CK Primary Care Unavailable MARIA DEL CARMEN, CK Primary Care Unavailable ANUSHKA SHINE Attending Unavailable SANJAY, KC Referring Unavailable Andrea Moreno MD Primary Care Provider Andrea Moreno MD Attending Provider [phone] Andrea Moreno MD Referring Provider Rodney Mosqueda Attending Provider Andrea oMreno Attending Unavailable Tiffanie, Andrea Primary Care Unavailable Andrea Moreno Referring Unavailable Tiffanie, Andrea Primary Care Unavailable Andrea Moreno Referring Unavailable Andrea Moreno Attending Unavailable Maria Del Carmen, Ck Referring Unavailable Maria De Lcarmen, Ck Attending Unavailable Maria Del Carmen, Ck Primary Care Unavailable Rodney Mosqueda Attending Unavailable Tiffanie, Andrea Primary Care Unavailable Andrea Moreno Referring Unavailable Medications Current Medications Medication Drug Class(es) Dates Sig (Normalized) Sig (Original) [id number] 200 actuat albuterol 0.09 mg/actuat metered dose [...] Reporton 0 10-08-2024 Urgent Care Visit Report [facility] [address], [address] [place] [address] OFFICE VISIT Date of Service: 10/08/24 MR#: [id number] Acct: [id number] Name: ONDINA DE LA FUENTE Rep #: [id number] : 1945 Provider: ANAI Tripathi Age/Sex: 79/F Location[place] [facility] Status: Signed Intake Vital Signs 11/11/22 09:09 [...] THROAT Chief 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 Normal [facility] Dexa Bone Density Studyon Dexa Bone Density Study [facility] [address] [place], [place] [address] Dexa Bone Density Study MR#: [id number] Acct: [id number] Name: ONDINA DE LA FUENTE Rep #: [id number] : 1945 F 79 From: Sudheer chadwick MD PCP: Dr. Andrea Moreno MD Status: REG CLI Study: Dexa Bone Density Study Date of Exam: 06/17/24 Exam# [id number] Ordering Dr: Andrea Moreno MD PROCEDURE: DEXA [...] Recommend follow-up as clinically warranted. Reading Location: [facility] CC: Dr. Andrea Moreno MD Equipment Manager: Signed Normal [facility] Absolute lymphocyte countOrd ered By: Andrea Moreno on 06-11-2024 Lymphocytes Auto (Unsp spec) [#/Vol] 1.11 10*3/uL 0.83-4.51 [facility] Absolute neutrophil countOrd ered By: Andrea Leivake on 06-11-2024 Neutrophils (Bld) [#/Vol] 1.9 10*3/uL Low 2.0-7.7 [facility] Anion gap in Serum or Plasma Ordered By: Andrea Tiffanie on 06-11-2024 Anion gap [Moles/Vol] 10 mmol/L 5-15 [facility] Automated lymphocyte count a s percentage of total leukocytesOrdered By: Andrea Leivake on 06-11-2024 Lymphocytes/100 WBC Auto (Unsp spec) 28.2 % 19-41 [facility] BUN/creatinine ratioOrdered By: [facility] Leivake on 06-11-2024 Urea nitrogen/Creatinine [Mass ratio] 20.8 mg/mg High 10-20 [facility] Basophil percentageOrdered B y: Andrea Leivake on 06-11-2024 Basophils/100 WBC (Bld) 0.8 % 0-1 [facility] Bilirubin, totalOrdered By: Andrea Tiffanie on 06-11-2024 Bilirubin [Mass/Vol] 0.29 mg/dL 0.00-1.30 [facility] CBC W/Diff, Automatedon 06-01 Absolute Lymph 1.11 X10 3/uL Normal 0.83-4.51 [facility] Comment on above: Performed By: #### L 100.0100, L500.4100, L500.4050, L506.1001, L501.9520 #### [facility] Laboratory [address] [place], [address] Absolute Neut 1.9 X10 3/uL Low 2.0-7.7 [facility] Comment on above: Performed By: #### L 100.0100, L500.4100, L500.4050, L506.1001, L501.9520 #### [facility] [address] [place], [address] Basophils/100 WBC (Bld) 0.8 % Normal 0-1 [facility] Comment on above: Performed By: #### L 100.0100, L500.4100, L500.4050, L506.1001, L501.9520 #### [facility] [address] [place], [address] Eosinophils/100 WBC (Bld) 9.9 % High 0-5 [facility] Comment on above: Performed By: #### L 100.0100, L500.4100, L500.4050, L506.1001, L501.9520 #### [facility] [address] [place], [address] Erythrocyte distribution width (RBC) [Ratio] 12.8 % Normal 11.6-14.6 [facility] Comment on above: Performed By: #### L 100.0100, L500.4100, L500.4050, L506.1001, L501.9520 #### [facility] [address] [place], [address] Hematocrit (Bld) [Volume fraction] 44.4 % Normal 37-47 [facility] Comment on above: Performed By: #### L 100.0100, L500.4100, L500.4050, L506.1001, L501.9520 #### [facility] [address] [place], [address] Hemoglobin (Bld) [Mass/Vol] 14.4 g/dL Normal 12.0-15.0 [facility] Comment on above: Performed By: #### L 100.0100, L500.4100, L500.4050, L506.1001, L501.9520 #### [facility] [address] [place], [address] IG% 0.300 Normal 0.0-0.9 [facility] Comment on above: Result Comment: IG% - Immature Granulocytes (promyelocytes, myelocytes and metamyelocytes) > 1% indicates that a LEFT SHIFT is Present. Performed By: #### L 100.0100, L500.4100, L500.4050, L506.1001, L501.9520 #### [facility] [address] [place], [address] Lymphocytes/100 WBC (Bld) 28.2 % Normal 19-41 [facility] Comment on above: Performed By: #### L 100.0100, L500.4100, L500.4050, L506.1001, L501.9520 #### [facility] [address] [place], [address] MCH (RBC) [Entitic mass] 30.8 pg Normal 27.0-32.0 [facility] Comment on above: Performed By: #### L 100.0100, L500.4100, L500.4050, L506.1001, L501.9520 #### [facility] [address] [place], [address] MCHC (RBC) [Mass/Vol] 32.4 g/dL Normal 32-36 [facility] Comment on above: Performed By: #### L 100.0100, L500.4100, L500.4050, L506.1001, L501.9520 #### [facility] [address] [place], [address] MCV (RBC) [Entitic vol] 94.9 fL Normal 81-99 [facility] Comment on above: Performed By: #### L 100.0100, L500.4100, L500.4050, L506.1001, L501.9520 #### [facility] [address] [place], [address] Monocytes/100 WBC (Bld) 12.7 % High 0-10 [facility] Comment on above: Performed By: #### L 100.0100, L500.4100, L500.4050, L506.1001, L501.9520 #### [facility] [address] [place], [address] Neutrophils/100 WBC (Bld) 48.1 % Normal 47-70 [facility] Comment on above: Performed By: #### L 100.0100, L500.4100, L500.4050, L506.1001, L501.9520 #### [facility] [address] [place], [address] Nucleated RBC (Bld) [#/Vol] 0 10*3/uL Normal 0-5 [facility] Comment on above: Performed By: #### L 100.0100, L500.4100, L500.4050, L506.1001, L501.9520 #### [facility] [address] [place], [address] Platelet mean volume (Bld) [Entitic vol] 9.6 fL Normal 6.2-12.0 [facility] Comment on above: Performed By: #### L 100.0100, L500.4100, L500.4050, L506.1001, L501.9520 #### [facility] [address] [place], [address] Platelets (Bld) [#/Vol] 261 10*3/uL Normal 150-450 [facility] Comment on above: Performed By: #### L 100.0100, L500.4100, L500.4050, L506.1001, L501.9520 #### [facility] [address] [place], [address] RBC (Bld) [#/Vol] 4.68 10*6/uL Normal 4.2-5.4 [facility] Comment on above: Performed By: #### L 100.0100, L500.4100, L500.4050, L506.1001, L501.9520 #### [facility] [address] [place], [address] RDW SD 44.1 fl High 35.1-43.9 [facility] Comment on above: Performed By: #### L 100.0100, L500.4100, L500.4050, L506.1001, L501.9520 #### [facility] [address] [place], [address] WBC (Bld) [#/Vol] 3.9 10*3/uL Low 4.4-11.0 [facility] Comment on above: Performed By: #### L 100.0100, L500.4100, L500.4050, L506.1001, L501.9520 #### [facility] [address] [facility] [place], [address] Calculated very low density lipoprotein (VLDL) cholesterol measurementOrdered By: Andrea Moreno on 06-11-2024 Calculated very low density lipoprotein (VLDL) cholesterol measurement 11 mg/dL [facility] VLDL Cholesterol 11 mg/dL - [facility] Carbon dioxide, total [Moles /volume] in Central venous bloodOrdered By: Andrea Moreno on 06-11-2024 CO2 [Moles/Vol] 28.2 mmol/L 21.0-32.0 [facility] Chloride assayOrdered By: Jagruti Moreno on 06-11-2024 Chloride [Moles/Vol] 105 mmol/L 98-108 [facility] Comprehensive Metabolic Prof ilon 06-11-2024 Albumin [Mass/Vol] 3.8 g/dL Normal 3.4-4.8 [facility] Comment on above: Performed By: #### L 100.0100, L500.4100, L500.4050, L506.1001, L501.9520 #### [facility] [address] [place], [address] Albumin/Globulin [Mass ratio] 1.1 {ratio} Normal 0.9-2.4 [facility] Comment on above: Performed By: #### L 100.0100, L500.4100, L500.4050, L506.1001, L501.9520 #### [facility] [address] [place], [address] ALK PHOS 45 U/L Normal 35-104 [facility] Comment on above: Performed By: #### L 100.0100, L500.4100, L500.4050, L506.1001, L501.9520 #### [facility] [address] [place], [address] ALT [Catalytic activity/Vol] 20 U/L Normal <=34 [facility] Comment on above: Performed By: #### L 100.0100, L500.4100, L500.4050, L506.1001, L501.9520 #### [facility] [address] [place], [address] AST [Catalytic activity/Vol] 25 U/L Normal <=31 [facility] Comment on above: Performed By: #### L 100.0100, L500.4100, L500.4050, L506.1001, L501.9520 #### [facility] [address] [place], [address] Bilirubin [Mass/Vol] 0.29 mg/dL Normal 0.00-1.30 [facility] Comment on above: Performed By: #### L 100.0100, L500.4100, L500.4050, L506.1001, L501.9520 #### [facility] [address] [place], [address] BUN/CRE 20.8 RATIO High 10-20 [facility] Comment on above: Performed By: #### L 100.0100, L500.4100, L500.4050, L506.1001, L501.9520 #### [facility] [address] [place], [address] Calcium [Mass/Vol] 10.0 mg/dL Normal 7.6-11.0 [facility] Comment on above: Performed By: #### L 100.0100, L500.4100, L500.4050, L506.1001, L501.9520 #### [facility] [address] [place], [address] Chloride [Moles/Vol] 105 mmol/L Normal 98-108 [facility] Comment on above: Performed By: #### L 100.0100, L500.4100, L500.4050, L506.1001, L501.9520 #### [facility] [address] [place], [address] CO2 [Moles/Vol] 28.2 mmol/L Normal 21.0-32.0 [facility] Comment on above: Performed By: #### L 100.0100, L500.4100, L500.4050, L506.1001, L501.9520 #### [facility] [address] [place], [address] Creatinine [Mass/Vol] 0.67 mg/dL Low 0.70-1.20 [facility] Comment on above: Performed By: #### L 100.0100, L500.4100, L500.4050, L506.1001, L501.9520 #### [facility] [address] [place], [address] GAP 10 Normal 5-15 [facility] Comment on above: Performed By: #### L 100.0100, L500.4100, L500.4050, L506.1001, L501.9520 #### [facility] [address] [place], [address] GFR/1.73 sq M.predicted among non-blacks MDRD (S/P/Bld) [Vol rate/Area] 88 mL/min/{1.73_m2} Normal >60 [facility] Comment on above: Result Comment: mL/m in/1.73m2 CKD-EPI Creatinine Equation (2020) Performed By: #### L 100.0100, L500.4100, L500.4050, L506.1001, L501.9520 #### [facility] [address] [place], [address] Globulin (S) [Mass/Vol] 3.4 g/dL Normal 2.2-4.2 [facility] Comment on above: Performed By: #### L 100.0100, L500.4100, L500.4050, L506.1001, L501.9520 #### [facility] [address] [place], [address] Glucose [Mass/Vol] 93 mg/dL Normal 70-99 [facility] Comment on above: Performed By: #### L 100.0100, L500.4100, L500.4050, L506.1001, L501.9520 #### [facility] [address] [place], [address] Potassium [Moles/Vol] 4.4 mmol/L Normal 3.3-5.1 [facility] Comment on above: Performed By: #### L 100.0100, L500.4100, L500.4050, L506.1001, L501.9520 #### [facility] [address] [place], [address] Sodium [Moles/Vol] 143 mmol/L Normal 133-145 [facility] Comment on above: Performed By: #### L 100.0100, L500.4100, L500.4050, L506.1001, L501.9520 #### [facility] [address] [place], [address] T PROT 7.3 g/dL Normal 5.9-8.4 [facility] Comment on above: Performed By: #### L 100.0100, L500.4100, L500.4050, L506.1001, L501.9520 #### [facility] [address] [place], [address] Urea nitrogen [Mass/Vol] 14 mg/dL Normal 4-19 [facility] Comment on above: Performed By: #### L 100.0100, L500.4100, L500.4050, L506.1001, L501.9520 #### [facility] [address] [place], [address] Eosinophil percentageOrdered By: Andrea Moreno on 06-11-2024 Eosinophils/100 WBC (Bld) 9.9 % High 0-5 [facility] Erythrocyte distribution wid th (RBC) [Ratio]Ordered By: Andrea Moreno on 06-11-2024 Erythrocyte distribution width (RBC) [Entitic vol] 44.1 fL High 35.1-43.9 [facility] Erythrocyte distribution wid th ratioOrdered By: Andrea Moreno on 06-11-2024 Erythrocyte distribution width (RBC) [Ratio] 12.8 % 11.6-14.6 [facility] Erythrocyte distribution wid th standard deviationOrdered By: [facility] Tiffanie on 06-11-2024 Erythrocyte distribution width (RBC) [Ratio] 44.1 fl High 35.1-43.9 [facility] GFR/1.73 sq M.predicted [place] g non-blacks MDRD (S/P/Bld) [Vol rate/Area]Ordered By: Andrea Moreno on 06-11-2024 Estimated GFR (MDRD) Non-Af Amer 88 >60 [facility] Comment on above: mL/min/1.73m2 CKD-EP I Creatinine Equation (2020) Glomerular filtration rate ( GFR) estimation/1.73 sq m using serum, plasma, or whole bOrdered By: Andrea Moreno on 06-11-2024 GFR/1.73 sq M.predicted among non-blacks MDRD (S/P/Bld) [Vol rate/Area] 88 mL/min/{1.73_m2} >60 [facility] Comment on above: mL/min/1.73m2 CKD-EP I Creatinine Equation (2020) Hematocrit Auto (Bld) [Volum e fraction]Ordered By: Andrea Moreno on 06-11-2024 Hematocrit (Bld) [Volume fraction] 44.4 % 37-47 [facility] Hemoglobin measurementOrdere d By: Andrea Moreno on 06-11-2024 Hemoglobin (Bld) [Mass/Vol] 14.4 g/dL 12.0-15.0 [facility] Immature granulocytes/100 WB C Auto (Bld)Ordered By: Andrea Moreno on 06-11-2024 Immature granulocytes/100 WBC (Bld) 0.300 % 0.0-0.9 [facility] Comment on above: IG% - Immature Granu locytes (promyelocytes, myelocytes and metamyelocytes) > 1% indicates that a LEFT SHIFT is Present. LDL calc ser/plasOrdered By: Andrea Moreno on 06-11-2024 Cholesterol in LDL [Mass/Vol] 158 mg/dL [facility] Comment on above: Hlsqhtjeap=046-449 m g/dL & Higher Nztp=012 mg/dL or greater LDL Cholesterol, Calculated 158 mg/dL [facility] Comment on above: Uzanlfhrnd=839-258 m g/dL & Higher Oqdz=411 mg/dL or greater Laboratory - Chemistry and C hemistry - challengeOrdered By: Andrea Moreno on 06-11-2024 AST [Catalytic activity/Vol] 25 U/L <32 [facility] Lipid Profileon 06-11-2024 CHOL:HDL 2.84 Normal [facility] Comment on above: Performed By: #### L 100.0100, L500.4100, L500.4050, L506.1001, L501.9520 #### [facility] [address] [place], [address] Cholesterol [Mass/Vol] 261 mg/dL High <=200 [facility] Comment on above: Result Comment: Chol esterol level, Desirable <200 mg/dL Borderline high cholesterol 200-239 mg/dL High cholesterol >=240 mg/dL Recommendations of the NCEP Adult Treatment Panel for the following risk-cutoff thresholds for the [place] population. Performed By: #### L 100.0100, L500.4100, L500.4050, L506.1001, L501.9520 #### [facility] [address] [place], [address] Cholesterol in HDL [Mass/Vol] 92 mg/dL Normal [facility] Comment on above: Result Comment: Kika onal Cholesterol Education Program (NCEP) guidelines: <40 mg/dL: Low HDL-cholesterol (major risk factor for CHD) >= 60 mg/dL: High HDL-cholesterol (negative risk factor for CHD) HDL-cholesterol is affected by a number of factors, e.g. smoking, exercise, hormones, sex and age. Performed By: #### L 100.0100, L500.4100, L500.4050, L506.1001, L501.9520 #### [facility] [address] [place], [address] Cholesterol in LDL [Mass/Vol] 158 mg/dL Normal [facility] Comment on above: Result Comment: Bord wriaky=824-380 mg/dL Higher Gwuw=624 mg/dL or greater Performed By: #### L 100.0100, L500.4100, L500.4050, L506.1001, L501.9520 #### [facility] [address] [place], [address] Cholesterol in VLDL [Mass/Vol] 11 mg/dL Normal 5-40 [facility] Comment on above: Performed By: #### L 100.0100, L500.4100, L500.4050, L506.1001, L501.9520 #### [facility] [address] [place], [address] Triglyceride [Mass/Vol] 57 mg/dL Normal [facility] Comment on above: Result Comment: The drugs N-Acetylcysteine and Metamizole may falsely depress this assay. Normal range: <150 mg/dL Borderline High: 150-199 mg/dL High: 200-499 mg/dL Very High: >500 mg/dL Performed By: #### L 100.0100, L500.4100, L500.4050, L506.1001, L501.9520 #### [facility] [place], [address] Lymphocytes Auto (Unsp spec) [#/Vol]Ordered By: Andrea Moreno on 06-11-2024 Lymphocytes (Bld) [#/Vol] 1.11 10*3/uL 0.83-4.51 [facility] Lymphocytes/100 WBC Auto (Un sp spec)Ordered By: Andrea Tiffanie on 06-11-2024 Lymphocytes/100 WBC (Bld) 28.2 % 19-41 [facility] MCV (mean corpuscular volume ) determinationOrdered By: Andrea Moreno on 06-11-2024 MCV (RBC) [Entitic vol] 94.9 fL 81-99 [facility] Mean corpuscular hemoglobin (MCH) determinationOrdered By: Andrea Moreno on 06-11-2024 MCH (RBC) [Entitic mass] 30.8 pg 27.0-32.0 [facility] Mean corpuscular hemoglobin concentration (MCHC) determinationOrdered By: Andrea Moreno on 06-11-2024 MCHC (RBC) [Mass/Vol] 32.4 g/dL 32-36 [facility] Mean platelet volume determi nationOrdered By: Andrea Moreno on 06-11-2024 Platelet mean volume (Bld) [Entitic vol] 9.6 fL 6.2-12.0 [facility] Monocyte percentageOrdered B y: Andrea Moreno on 06-11-2024 Monocytes/100 WBC (Bld) 12.7 % High 0-10 [facility] Neutrophil percentageOrdered By: Andrea Moreno on 06-11-2024 Neutrophils/100 WBC (Bld) 48.1 % 47-70 [facility] Nucleated red blood cell per centageOrdered By: Andrea Moreno on 06-11-2024 Nucleated RBC/100 WBC (Bld) [Ratio] 0 % 0-5 [facility] Platelet countOrdered By: Jagruti Moreno on 06-11-2024 Platelets (Bld) [#/Vol] 261 10*3/uL 150-450 [facility] Potassium (Unsp spec) [Mass/ Vol]Ordered By: Andrea Moreno on 06-11-2024 Potassium [Moles/Vol] 4.4 mmol/L 3.3-5.1 [facility] Potassium measurement (mass/ volume)Ordered By: Andrea Moreno on 06-11-2024 Potassium (Unsp spec) [Mass/Vol] 4.4 mmol/L 3.3-5.1 [facility] RBC Auto (Bld) [#/Vol]Ordere d By: Andrea Moreno on 06-11-2024 RBC (Bld) [#/Vol] 4.68 10*6/uL 4.2-5.4 [facility] Screening total cholesterol/ high density lipoprotein (HDL) cholesterol ratioOrdered By: Andrea Moreno on 06-11-2024 Cholesterol.total/Cho lesterol in HDL [Mass ratio] 2.84 {ratio} [facility] Serum creatinine measurement (mass/volume)Ordered By: Andrea Moreno on 06-11-2024 Creatinine [Mass/Vol] 0.67 mg/dL Low 0.70-1.20 [facility] Serum globulin measurementOr dered By: Andrea Moreno on 06-11-2024 Globulin (S) [Mass/Vol] 3.4 g/dL 2.2-4.2 [facility] Serum glucose measurement (m ass/volume)Ordered By: Andrea Moreno on 06-11-2024 Glucose [Mass/Vol] 93 mg/dL 70-99 [facility] Serum or plasma alanine oakley otransferase (ALT) measurementOrdered By: Andrea Moreno on 06-11-2024 ALT [Catalytic activity/Vol] 20 U/L <35 [facility] Serum or plasma albumin ginny urement (mass/volume)Ordered By: Andrea Moreno on 06-11-2024 Albumin [Mass/Vol] 3.8 g/dL 3.4-4.8 [facility] Serum or plasma albumin/glob ulin mass ratioOrdered By: Andrea Moreno on 06-11-2024 Albumin/Globulin [Mass ratio] 1.1 {ratio} 0.9-2.4 [facility] Serum or plasma alkaline teddy sphatase measurementOrdered By: Andrea Moreno on 06-11-2024 ALP [Catalytic activity/Vol] 45 U/L 35-104 [facility] Serum or plasma calcium ginny urement (mass/volume)Ordered By: Andrea Moreno on 06-11-2024 Calcium [Mass/Vol] 10.0 mg/dL 7.6-11.0 [facility] Serum or plasma cholesterol in HDL measurement (mass/volume)Ordered By: Andrea Moreno on 06-11-2024 Cholesterol in HDL [Mass/Vol] 92 mg/dL >40 [facility] Comment on above: National Cholesterol Education Program (NCEP) guidelines:<40 mg/dL: Low HDL-cholesterol (major risk factor for CHD)>= 60 mg/dL: High HDL-cholesterol (negative risk factor for CHD)HDL-cholesterol is affected by a number of factors, e.g. smoking, exercise, hormones, sex and age. Serum or plasma cholesterol measurement (mass/volume)Ordered By: Andrea Moreno on 06-11-2024 Cholesterol [Mass/Vol] 261 mg/dL High <201 [facility] Comment on above: Cholesterol level, D esirable <200 mg/dLBorderline high cholesterol 200-239 mg/dLHigh cholesterol >=240 mg/dLRecommendations of the NCEP Adult Treatment Panel for the following risk-cutoff thresholds for the [place] population. Serum or plasma urea nitroge n measurement (mass/volume)Ordered By: Andrea Moreno on 06-11-2024 Urea nitrogen [Mass/Vol] 14 mg/dL 4-19 [facility] Sodium levelOrdered By: Adriane Moreno on 06-11-2024 Sodium [Moles/Vol] 143 mmol/L 133-145 [facility] TSH DL <= 0.005 mIU/L QnOrde red By: Andrea Moreno on 06-11-2024 Thyroid Stimulating Hormone (TSH) 2.020 uIU/mL 0.300-4.20 0 [facility] TSH Qn 2.020 uIU/mL 0.300-4.20 0 [facility] Thyroid Stim Hormone (TSH)on 06-11-2024 TSH 2.020 uIU/mL Normal 0.300-4.20 0 [facility] Comment on above: Performed By: #### L 100.0100, L500.4100, L500.4050, L506.1001, L501.9520 #### [facility] [address] [place], [address] Total proteinOrdered By: Belia Moreno on 06-11-2024 Protein [Mass/Vol] 7.3 g/dL 5.9-8.4 [facility] Triglycerides measurementOrd ered By: Andrea Moreno on 06-11-2024 Triglyceride [Mass/Vol] 57 mg/dL <199 [facility] Comment on above: The drugs N-Acetylcy steine and Metamizole may falsely depress this assay. Normal range: <150 mg/dLBorderline High: 150-199 mg/dLHigh: 200-499 mg/dLVery High: >500 mg/dL Vitamin D, 25-hydroxyOrdered By: Andrea Moreno on 06-11-2024 Vitamin D 25-Hydroxy 38.2 ng/mL 30-100 [facility] Comment on above: Vitamin D StatusDefi ciency: <20 ng/mL (50nmol/L)Insufficiency: 20-30 ng/mL (50-75 nmol/L)Sufficiency: 30-100 ng/mL (75-250 nmol/L)Toxicity: >100 ng/mL (>250 nmol/L) Vitamin D,25 Hydroxyon 06-11 Vitamin D 25-OH 38.2 ng/mL Normal 30-100 [facility] Comment on above: Result Comment: Nupur min D Status Deficiency: <20 ng/mL (50nmol/L) Insufficiency: 20-30 ng/mL (50-75 nmol/L) Sufficiency: 30-100 ng/mL (75-250 nmol/L) Toxicity: >100 ng/mL (>250 nmol/L) Performed By: #### L 100.0100, L500.4100, L500.4050, L506.1001, L501.9520 #### [facility] [address] [place], [address] White blood cell (WBC) count Ordered By: Andrea Moreno on 04-11-2025 WBC (Bld) [#/Vol] 3.9 10*3/uL Low 4.4-11.[address] [facility] (PULMWS ) ONDINA DE LA FUENTE ([id number]) 1945 F Date Time Provider Department 01/23/24 8:45 AM ANUSHKA SHINE PULMWS During your visit today, we recorded the following information about you: Anushka Shine MD 01/23/2024 11:14 AM Signed . Respiratory Gap Note Patient name: Ondina De La Fuente [...] sooner with problems Anushka Shine MD Respiratory Gap Anushka Shine MD 01/23/2024 9:20 AM Signed [...] - pantoprazole (more content not included)... Normal [facility] CBC W/Diff, Automatedon 10-0 Absolute Lymph 0.71 X10 3/uL Low 0.83-4.51 [facility] Comment on above: Performed By: #### L 100.0100, L501.9520, L500.4100, L500.4050 #### [facility] [address] [place], [address] Absolute Neut 2.7 X10 3/uL Normal 2.0-7.7 [facility] Comment on above: Performed By: #### L 100.0100, L501.9520, L500.4100, L500.4050 #### [facility] [address] [place], [address] Basophils/100 WBC (Bld) 0.9 % Normal 0-1 [facility] Comment on above: Performed By: #### L 100.0100, L501.9520, L500.4100, L500.4050 #### [facility] [address] [place], [address] Eosinophils/100 WBC (Bld) 6.8 % High 0-5 [facility] Comment on above: Performed By: #### L 100.0100, L501.9520, L500.4100, L500.4050 #### [facility] [address] [place], [address] Erythrocyte distribution width (RBC) [Ratio] 12.4 % Normal 11.6-14.6 [facility] Comment on above: Performed By: #### L 100.0100, L501.9520, L500.4100, L500.4050 #### [facility] [address] [place], [address] Hematocrit (Bld) [Volume fraction] 45.6 % Normal 37-47 [facility] Comment on above: Performed By: #### L 100.0100, L501.9520, L500.4100, L500.4050 #### [facility] [address] [place], [address] Hemoglobin (Bld) [Mass/Vol] 14.6 g/dL Normal 12.0-15.0 [facility] Comment on above: Performed By: #### L 100.0100, L501.9520, L500.4100, L500.4050 #### [facility] [address] [place], [address] IG% 0.200 Normal 0.0-0.9 [facility] Comment on above: Result Comment: IG% - Immature Granulocytes (promyelocytes, myelocytes and metamyelocytes) > 1% indicates that a LEFT SHIFT is Present. Performed By: #### L 100.0100, L501.9520, L500.4100, L500.4050 #### [facility] [address] [place], [address] Lymphocytes/100 WBC (Bld) 16.6 % Low 19-41 [facility] Comment on above: Performed By: #### L 100.0100, L501.9520, L500.4100, L500.4050 #### [facility] [address] [place], [address] MCH (RBC) [Entitic mass] 30.0 pg Normal 27.0-32.0 [facility] Comment on above: Performed By: #### L 100.0100, L501.9520, L500.4100, L500.4050 #### [facility] [address] [place], [address] MCHC (RBC) [Mass/Vol] 32.0 g/dL Normal 32-36 [facility] Comment on above: Performed By: #### L 100.0100, L501.9520, L500.4100, L500.4050 #### [facility] [address] [place], [address] MCV (RBC) [Entitic vol] 93.8 fL Normal 81-99 [facility] Comment on above: Performed By: #### L 100.0100, L501.9520, L500.4100, L500.4050 #### [facility] [address] [place], [address] Monocytes/100 WBC (Bld) 11.9 % High 0-10 [facility] Comment on above: Performed By: #### L 100.0100, L501.9520, L500.4100, L500.4050 #### [facility] [address] [place], [address] Neutrophils/100 WBC (Bld) 63.6 % Normal 47-70 [facility] Comment on above: Performed By: #### L 100.0100, L501.9520, L500.4100, L500.4050 #### [facility] [address] [place], [address] Nucleated RBC (Bld) [#/Vol] 0 10*3/uL Normal 0-5 [facility] Comment on above: Performed By: #### L 100.0100, L501.9520, L500.4100, L500.4050 #### [facility] [address] [place], [address] Platelet mean volume (Bld) [Entitic vol] 9.4 fL Normal 6.2-12.0 [facility] Comment on above: Performed By: #### L 100.0100, L501.9520, L500.4100, L500.4050 #### [facility] [address] [place], [address] Platelets (Bld) [#/Vol] 246 10*3/uL Normal 150-450 [facility] Comment on above: Performed By: #### L 100.0100, L501.9520, L500.4100, L500.4050 #### [facility] [address] [place], [address] RBC (Bld) [#/Vol] 4.86 10*6/uL Normal 4.2-5.4 [facility] Comment on above: Performed By: #### L 100.0100, L501.9520, L500.4100, L500.4050 #### [facility] [address] [place], [address] RDW SD 43.1 fl Normal 35.1-43.9 [facility] Comment on above: Performed By: #### L 100.0100, L501.9520, L500.4100, L500.4050 #### [facility] [address] [place], [address] WBC (Bld) [#/Vol] 4.3 10*3/uL Low 4.4-11.0 [facility] Comment on above: Performed By: #### L 100.0100, L501.9520, L500.4100, L500.4050 #### [facility] [address] [place], [address] Comprehensive Metabolic Prof ilon 12-02-2023 Albumin [Mass/Vol] 3.4 g/dL Normal 3.2-5.0 [facility] Comment on above: Performed By: #### L 100.0100, L501.9520, L500.4100, L500.4050 #### [facility] [address] [place], [address] Albumin/Globulin [Mass ratio] 0.8 {ratio} Low 0.9-2.4 [facility] Comment on above: Performed By: #### L 100.0100, L501.9520, L500.4100, L500.4050 #### [facility] [address] [place], [address] ALK P 41 U/L Low 45-117 [facility] Comment on above: Performed By: #### L 100.0100, L501.9520, L500.4100, L500.4050 #### [facility] [address] [place], [address] ALT [Catalytic activity/Vol] 25 U/L Normal 13-56 [facility] Comment on above: Performed By: #### L 100.0100, L501.9520, L500.4100, L500.4050 #### [facility] [address] [place], [address] AST [Catalytic activity/Vol] 20 U/L Normal 15-37 [facility] Comment on above: Performed By: #### L 100.0100, L501.9520, L500.4100, L500.4050 #### [facility] [address] [place], [address] Bilirubin [Mass/Vol] 0.50 mg/dL Normal 0.20-1.00 [facility] Comment on above: Result Comment: For patients on eltrombopag therapy, use of Dimension [place] TBIL is not recommended. Performed By: #### L 100.0100, L501.9520, L500.4100, L500.4050 #### [facility] [address] [place], [address] BUN/CRE 20.3 RATIO High 10-20 [facility] Comment on above: Performed By: #### L 100.0100, L501.9520, L500.4100, L500.4050 #### [facility] [address] [place], [address] CA,Total 9.9 mg/dL Normal 8.5-10.1 [facility] Comment on above: Performed By: #### L 100.0100, L501.9520, L500.4100, L500.4050 #### [facility] [address] [place], [address] Chloride [Moles/Vol] 105 mmol/L Normal 98-107 [facility] Comment on above: Performed By: #### L 100.0100, L501.9520, L500.4100, L500.4050 #### [facility] [address] [place], [address] CO2 [Moles/Vol] 31.0 mmol/L Normal 21.0-32.0 [facility] Comment on above: Performed By: #### L 100.0100, L501.9520, L500.4100, L500.4050 #### [facility] [address] [place], [address] Creatinine [Mass/Vol] 0.84 mg/dL Normal 0.55-1.02 [facility] Comment on above: Result Comment: The validity of the calculated GFR GFRAA in patients over 70 years has not been determined. Clinical correlation is essential. Performed By: #### L 100.0100, L501.9520, L500.4100, L500.4050 #### [facility] [address] [place], [address] EST GFR - AA 84 mL/min Normal >60 [facility] Comment on above: Result Comment: Afri can [place] GFR Calc Performed By: #### L 100.0100, L501.9520, L500.4100, L500.4050 #### [facility] [address] [place], [address] GAP 4 Low 5-15 [facility] Comment on above: Performed By: #### L 100.0100, L501.9520, L500.4100, L500.4050 #### [facility] [address] [place], [address] GFR/1.73 sq M.predicted among non-blacks MDRD (S/P/Bld) [Vol rate/Area] 70 mL/min/{1.73_m2} Normal >60 [facility] Comment on above: Result Comment: Non- GFR Calc Performed By: #### L 100.0100, L501.9520, L500.4100, L500.4050 #### [facility] [address] [place], [address] Globulin (S) [Mass/Vol] 4.4 g/dL High 2.2-4.2 [facility] Comment on above: Performed By: #### L 100.0100, L501.9520, L500.4100, L500.4050 #### [facility] [address] [place], [address] Glucose [Mass/Vol] 102 mg/dL Normal 74-106 [facility] Comment on above: Result Comment: Fast ing Glucose result from 100 to 125 mg/dL suggests IMPAIRED HOMEOSTASIS per A.D.A. criteria. Performed By: #### L 100.0100, L501.9520, L500.4100, L500.4050 #### [facility] [address] [place], [address] Potassium [Moles/Vol] 4.0 mmol/L Normal 3.5-5.1 [facility] Comment on above: Performed By: #### L 100.0100, L501.9520, L500.4100, L500.4050 #### [facility] [address] [place], [address] Sodium [Moles/Vol] 140 mmol/L Normal 136-145 [facility] Comment on above: Performed By: #### L 100.0100, L501.9520, L500.4100, L500.4050 #### [facility] [address] [place], [address] T PROT 7.8 g/dL Normal 6.4-8.2 [facility] Comment on above: Performed By: #### L 100.0100, L501.9520, L500.4100, L500.4050 #### [facility] [address] [place], [address] Urea nitrogen [Mass/Vol] 17 mg/dL Normal 7-18 [facility] Comment on above: Performed By: #### L 100.0100, L501.9520, L500.4100, L500.4050 #### [facility] [address] [place], [address] Lipid Profileon 12-02-2023 Cholesterol [Mass/Vol] 202 mg/dL High 200 [facility] Comment on above: Result Comment: <200 mg/dL Desirable 200-240 mg/dL Borderline >240 mg/dL High Risk Performed By: #### L 100.0100, L501.9520, L500.4100, L500.4050 #### [facility] [address] [place], [address] Cholesterol in HDL [Mass/Vol] 104 mg/dL Normal [facility] Comment on above: Result Comment: The drugs N-Acetylcysteine and Metamizole may falsely depress this assay. Reference Range HDL <40 mg/dL Low HDL Cholesterol HDL >or= 60 mg/dL High HDL Cholesterol Performed By: #### L 100.0100, L501.9520, L500.4100, L500.4050 #### [facility] [address] [place], [address] Cholesterol in LDL [Mass/Vol] 89 mg/dL Normal 0-130 [facility] Comment on above: Performed By: #### L 100.0100, L501.9520, L500.4100, L500.4050 #### [facility] [address] [place], [address] Cholesterol in VLDL [Mass/Vol] 9 mg/dL Normal 5-40 [facility] Comment on above: Performed By: #### L 100.0100, L501.9520, L500.4100, L500.4050 #### [facility] [address] [place], [address] Triglyceride [Mass/Vol] 46 mg/dL Normal [facility] Comment on above: Result Comment: The drugs N-Acetylcysteine and Metamizole may falsely depress this assay. Serum Triglycerides Reference Interval Normal <150 mg/dL Borderline high 150 - 199 mg/dL High 200 - 499 mg/dL Very High > or = 500 mg/dL Performed By: #### L 100.0100, L501.9520, L500.4100, L500.4050 #### [facility] [address] [place], [address] Thyroid Stim Hormone (TSH)on 12-02-2023 TSH 1.150 uIU/mL Normal 0.358-3.74 0 [facility] Comment on above: Performed By: #### L 100.0100, L501.9520, L500.4100, L500.4050 #### [facility] [place], [address] CNCOon 11-30-2023 CNCO Letter Text Normal [facility] CNOVon 10-23-2023 CNOV Office Visit (PULMWS ) ONDINA DE LA FUENTE ([id number]) 1945 F Date Time Provider Department 10/23/23 9:30 AM ANUSHKA SHINE PULMWS During your visit today, we recorded the following information about you: Anushka Shine MD 10/23/2023 10:10 AM Signed . Respiratory Gap Note Patient name: Ondina De La Fuente [...] Flonase nasal spray Anushka Shine MD Respiratory Gap Allergies As of Date: 10/23/2023 (No Known Allergies) Date Reviewed: 10/23/2023 Reviewed by: Anushka Shine MD - Fully Assessed Reason for Visit: Established Patient [175] Cmt: 6 week follow up Primary Visit Diagnosis:Cough variant asthma [J45.991] Other Visit Diagnoses:Gastroesophageal reflux disease, unspecified whether esophagitis present [K21.9] Nasal (more content not included)... Normal [facility] GRPon 09-09 A. alternata IgE Qn (S) <0.35 Normal <0.35 [facility] Comment on above: Order Comment: Rafael cain Type: BLOOD SPECIMEN Ordering Facility: [facility] Address: [address] [place] [address] Performed By: #### G RTLKS #### [facility] CLIA [id number] [address] [place] [address] [place] A. alternata IgE RAST class (S) Class 0 Normal Class 0 [facility] Comment on above: Order Comment: Specmisael cain Type: BLOOD SPECIMEN Ordering Facility: [facility] Address: [address] [place] [address] Performed By: #### G RTLKS #### [facility] CLIA [id number] [address] [place] [address] [place] house dust mite IgE Qn (S) <0.35 Normal <0.35 [facility] Comment on above: Order Comment: Speci men Type: BLOOD SPECIMEN Ordering Facility: [facility] Address: [address] [place] [address] Performed By: #### G RTLKS #### [facility] CLIA [id number] [address] [place] [address] [place] house dust mite IgE RAST class (S) Class 0 Normal Class 0 [facility] Comment on above: Order Comment: Speci men Type: BLOOD SPECIMEN Ordering Facility: [facility] Address: [address] [place] [address] Performed By: #### G RTLKS #### [facility] CLIA [id number] [address] [place] [address] [place] C. herbarum IgE Qn (S) <0.35 Normal <0.35 [facility] Comment on above: Order Comment: Speci men Type: BLOOD SPECIMEN Ordering Facility: [facility] Address: [address] [place] [address] Performed By: #### G RTLKS #### [facility] CLIA [id number] [address] [place] [address] [place] C. herbarum IgE RAST class (S) Class 0 Normal Class 0 [facility] Comment on above: Order Comment: Speci men Type: BLOOD SPECIMEN Ordering Facility: [facility] Address: [address] [place] [address] Performed By: #### G RTLKS #### [facility] CLIA [id number] [address] [place] [address] [place] Cat dander IgE Qn (S) <0.35 Normal <0.35 [facility] Comment on above: Order Comment: Speci men Type: BLOOD SPECIMEN Ordering Facility: [facility] Address: [address] [place], [place] [id number] Performed By: #### G RTLKS #### [facility] CLIA [id number] [address] [place] [address] [place] Cat dander IgE RAST class (S) Class 0 Normal Class 0 [facility] Comment on above: Order Comment: Speci men Type: BLOOD SPECIMEN Ordering Facility: [facility] Address: [address] [place] [address] Performed By: #### G RTLKS #### [facility] CLIA [id number] [address] [place] [address] [place] Common Ragweed IgE Qn (S) <0.35 Normal <0.35 [facility] Comment on above: Order Comment: Speci men Type: BLOOD SPECIMEN Ordering Facility: [facility] Address: [address] [place] [address] Performed By: #### G RTLKS #### [facility] CLIA [id number] [address] [place] [address] [place] Common Ragweed IgE RAST class (S) Class 0 Normal Class 0 [facility] Comment on above: Order Comment: Speci men Type: BLOOD SPECIMEN Ordering Facility: [facility] Address: [address] [place] [address] Performed By: #### G RTLKS #### [facility] CLIA [id number] [address] [place] [address] [place] Dog dander IgE Qn (S) <0.35 Normal <0.35 [facility] Comment on above: Order Comment: Speci men Type: BLOOD SPECIMEN Ordering Facility: [facility] Address: [address] [place], [place] [id number] Performed By: #### G RTLKS #### [facility] CLIA [id number] [address] [place] [address] [place] Dog dander IgE RAST class (S) Class 0 Normal Class 0 [facility] Comment on above: Order Comment: Speci men Type: BLOOD SPECIMEN Ordering Facility: [facility] Address: [address] [place], [place] [address] Performed By: #### G RTLKS #### [facility] CLIA [id number] [address] [place] [address] [place] Go[place]foot IgE Qn (S) <0.35 Normal <0.35 [facility] Comment on above: Order Comment: Speci men Type: BLOOD SPECIMEN Ordering Facility: [facility] Address: [address] [place] [address] Performed By: #### G RTLKS #### [facility] CLIA [id number] [address] [place] [address] [place] IgE RAST class (S) Class 0 Normal Class 0 [facility] Comment on above: Order Comment: Speci men Type: BLOOD SPECIMEN Ordering Facility: [facility] Address: [address] [place] [address] Performed By: #### G RTLKS #### [facility] CLIA [id number] [address] [place] [address] [place] blue grass IgE Qn (S) <0.35 Normal <0.35 [facility] Comment on above: Order Comment: Speci men Type: BLOOD SPECIMEN Ordering Facility: [facility] Address: [address] [place] [address] Performed By: #### G RTLKS #### [facility] CLIA [id number] [address] [place] [address] [place] blue grass IgE RAST class (S) Class 0 Normal Class 0 [facility] Comment on above: Order Comment: Speci men Type: BLOOD SPECIMEN Ordering Facility: [facility] Address: [address] [place] [address] Performed By: #### G RTLKS #### [facility] CLIA [id number] [address] [place] [address] [place] Tar[place] IgE Qn (S) <0.35 Normal <0.35 [facility] Comment on above: Order Comment: Speci men Type: BLOOD SPECIMEN Ordering Facility: [facility] Address: [address] [place] [address] Performed By: #### G RTLKS #### [facility] CLIA [id number] [address] [place] [address] [place] IgE RAST class (S) Class 0 Normal Class 0 [facility] Comment on above: Order Comment: Speci men Type: BLOOD SPECIMEN Ordering Facility: [facility] Address: [address] [place] [address] Performed By: #### G RTLKS #### [facility] CLIA [id number] [address] [place] [address] [place] IgE Qn (S) <0.35 Normal <0.35 [facility] Comment on above: Order Comment: Speci men Type: BLOOD SPECIMEN Ordering Facility: [facility] Address: [address] [place] [address] Performed By: #### G RTLKS #### [facility] CLIA [id number] [address] [place] [address] [place] IgE RAST class (S) Class 0 Normal Class 0 [facility] Comment on above: Order Comment: Speci men Type: BLOOD SPECIMEN Ordering Facility: [facility] Address: [address] [place] [address] Performed By: #### G RTLKS #### [facility] CLIA [id number] [address] [place] [address] [place] Eosinophils Auto (Bld) [#/Vo l]on 09-10-2023 Eosinophils (Bld) [#/Vol] 0.39 10*3/uL Normal <0.46 [facility] Comment on above: Order Comment: Speci men Type: BLOOD SPECIMEN Ordering Facility: [facility] Address: [address] [place] [address] Performed By: #### 7 11-2 #### [facility] CLIA [id number] [address] [place] [address] [place] IgE SerPl-aCncon 09-10-2023 IgE Qn 117.0 kU/l High <114.0 [facility] Comment on above: Order Comment: Speci men Type: BLOOD SPECIMEN Ordering Facility: [facility] Address: [address] [place] [address] Performed By: #### 1 9113-0 #### [facility] CLIA [id number] [address] [place] [address] [place] CNOVon 09-09-2023 CNOV Office Visit (PULMWS ) ONDINA DE LA FUENTE ([id number]) 1945 F Date Time Provider Department 09/09/23 1:30 PM ANUSHKA SHINE PULMWS During your visit today, we recorded the following information about you: Pulse Respiration Blood pressure Weight 92/minute 15/minute 122/74 67.6 kg Height 1.646 m Sarai Brunson LPN 09/09/2023 1:44 PM Signed Intake information documented in the prior visit with Respiratory Therapy today. Anushka Shine MD 09/09/2023 3:16 PM Signed . Respiratory Gap Note Patient name: Ondina De La Fuente [...] Nasal co (more content not included)... Normal [facility] NITRIC OXIDE, EXHALEDon 07-0 Mervin Orona, DOCK SUPERVISOR 09/09/2023 9:46 AM RESPIRATORY THERAPY ORAL EXHALED [...] DATE: September 09, 2023 TIME: 9:46 AM [facility] SPIROMETRY - BASELINE AND PO ST DILATORon 09-09-2023 [id number]% POST (L/S) 1.90 [facility]24-20% PRE (L/S) 1.26 L/S [facility] FEV1 PRE (L) 1.92 L [facility] FEV1/FVC POST (%) 77 % [facility] FEV1/FVC PRE (%) 72 % [facility] FEV1_POST (L) 2.12 L [facility] FVC POST (L) 2.77 L [facility] FVC PRE (L) 2.69 L [facility] PEF POST (L/S) 5.58 L/S [facility] PEF PRE (L/S) 5.10 L/S [facility] [address] [place] [address] Test Date: 2023-09-09 Pat Name: ONDINA DE LA FUENTE Department: Room: Gender: Female 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 //ES PULMONARY FUNCTION LAB [facility] XR CHEST 2V FRONTAL/LATon XR CHEST 2V [...] tissues: Unremarkable. IMPRESSION: No acute radiographic abnormality. Equipment Manager: PSCBeni Transcribe Date/Time: Sep 10 2023 4:48P Dictated by : RHONDA RODIRGUEZ MD This examination was interpreted and the report reviewed and electronically signed by: RHONDA RODRIGUEZ MD on Sep 10 2023 4:50PM EST [id number] Normal [facility] Absolute lymphocyte countOrd ered By: Shanell De Leonshady on 11-11-2022 Lymphocytes Auto (Unsp spec) [#/Vol] 0.59 10*3/uL 0.83-4.51 [facility] Basophil percentageOrdered B y: Shanell Rodgers on 11-11-2022 Basophils/100 WBC (Bld) 0.3 % 0-1 [facility] Chloride [Moles/Vol] 107 mmol/L 98-107 [facility] Eosinophils/100 WBC (Bld) 10.4 % 0-5 [facility] Glucose [Mass/Vol] 115 mg/dL 74-106 [facility] Comment on above: Fasting Glucose resu lt from 100 to 125 mg/dL suggests IMPAIRED HOMEOSTASIS per A.D.A. criteria. Neutrophils (Bld) [#/Vol] 1.6 10*3/uL 2.0-7.7 [facility] Neutrophils/100 WBC (Bld) 52.9 % 47-70 [facility] Potassium [Moles/Vol] 3.9 mmol/L 3.5-5.1 [facility] Sodium [Moles/Vol] 140 mmol/L 136-145 [facility] WBC (Bld) [#/Vol] 3.1 10*3/uL 4.4-11.0 [facility] Blood erythrocytes count (nu mber/volume)Ordered By: Shanell Rodgers on 11-11-2022 RBC (Bld) [#/Vol] 4.73 10*6/uL 4.2-5.4 [facility] Blood hemoglobin measurement (mass/volume)Ordered By: Shanell Rodgers on 11-11-2022 Hemoglobin (Bld) [Mass/Vol] 14.2 g/dL 12.0-15.0 [facility] Blood lymphocytes/100 leukoc ytesOrdered By: Shanell Rodgers on 11-11-2022 Lymphocytes/100 WBC (Bld) 19.2 % 19-41 [facility] Blood manual differential co mment interpretation (narrative result)Ordered By: Shanell Rodgers on 11-11-2022 Manual differential comment Kush (Bld) [Interp] SCANNED [facility] Blood monocytes/100 leukocyt esOrdered By: Shanell Rodgers on 11-11-2022 Monocytes/100 WBC (Bld) 16.9 % 0-10 [facility] Blood platelet mean volumeOr dered By: Shanell Rodgers on 11-11-2022 Platelet mean volume (Bld) [Entitic vol] 9.6 fL 6.2-12.0 [facility] Determination of erythrocyte mean corpuscular volume (MCV)Ordered By: Shanell Rodgers on 11-11-2022 MCV (RBC) [Entitic vol] 95.6 fL 81-99 [facility] Hematocrit Auto (Bld) [Volum e fraction]Ordered By: Shanell Rodgers on 11-11-2022 Hematocrit (Bld) [Volume fraction] 45.2 % 37-47 [facility] Laboratory - Chemistry and C hemistry - challengeOrdered By: Shanell Rodgers on 11-11-2022 CO2 [Moles/Vol] 30.0 mmol/L 21.0-32.0 [facility] Urea nitrogen/Creatinine [Mass ratio] 20.9 mg/mg 10-20 [facility] Laboratory - Hematology and Cell countsOrdered By: Shanell Rodgers on 11-11-2022 Erythrocyte distribution width (RBC) [Entitic vol] 44.2 fL 35.1-43.9 [facility] Erythrocyte distribution width (RBC) [Ratio] 12.5 % 11.6-14.6 [facility] Immature granulocytes/100 WBC (Bld) 0.300 % 0.0-0.9 [facility] Comment on above: IG% - Immature Granu locytes (promyelocytes, myelocytes and metamyelocytes) > 1% indicates that a LEFT SHIFT is Present. MCH (RBC) [Entitic mass] 30.0 pg 27.0-32.0 [facility] Nucleated RBC/100 WBC (Bld) [Ratio] 0 % 0-5 [facility] MCHC Auto (RBC) [Mass/Vol]Or dered By: Shanell Rodgers on 11-11-2022 MCHC (RBC) [Mass/Vol] 31.4 g/dL 32-36 [facility] No Panel InformationOrdered By: Shanell Rodgers on 11-11-2022 Estimated Creatinine Clearance Calc 45.09 ml/min [facility] Estimated GFR (MDRD) Amer 94 mL/min >60 [facility] Comment on above: GFR Calc Estimated GFR (MDRD) Non-Af Amer 78 mL/min >60 [facility] Comment on above: Non- GFR Calc Troponin I High Sensitivity 4 pg/mL 3.0-54.0 [facility] Comment on above: Please Note: New [facility] t Units and Gender Specific Reference Ranges. For more information see Policy Stat Procedure [place] High Sensitivity Troponin (TNIH) and attachments. Platelets bldOrdered By: Esthela Rodgers on 11-11-2022 Platelets (Bld) [#/Vol] 215 10*3/uL 150-450 [facility] Review by pathologistOrdered By: Shanell Rodgers on 11-11-2022 Pathologist review Kush (Unsp spec) [Interp] May foll [facility] Serum or plasma calcium ginny urement (mass/volume)Ordered By: Shanell Rodgers on 11-11-2022 Calcium [Mass/Vol] 9.2 mg/dL 8.5-10.1 [facility] Serum or plasma creatinine m easurement (mass/volume)Ordered By: Shanell Rodgers on 11-11-2022 Creatinine [Mass/Vol] 0.76 mg/dL 0.55-1.02 [facility] Comment on above: The validity of the calculated GFR & GFRAA in patients over 70 years has not been determined. Clinical correlation is essential. Serum or plasma urea nitroge n measurement (mass/volume)Ordered By: Shanell Rodgers on 11-11-2022 Urea nitrogen [Mass/Vol] 16 mg/dL 7-18 [facility] Thin prep Papanicolaou smear with manual screeningOrdered By: Shanell Rodgers on 11-11-2022 Thin prep Papanicolaou smear with manual screening 3 5-15 [facility] JERMAINE SCREENING W TOMOon 03-22 [facility] ANKLE COMP MIN 3 VWS RTon ANKLE [...] TELLEZ M.D. Signed By: CORINE TELLEZ M.D. [facility] 07-08-2021 [facility] REPORT [facility] DATE OF SERVICE: 10/2021 REASON FOR VISIT: [...] fibula. ASSESSMENT: Fractured tip of right fibula. [facility] PATIENT NAME: ONDINA DE LA FUENTE [address] MEDICAL REC #: [id number] [place] [address] [facility] REPORT STATCARE PHYSICIAN PLAN: Clinical findings were [...] and get an appointment. Dena Sims MD [id number] [facility] File#: [id number] END OF DOCUMENT / CHANGE LOG FOLLOWS Last Edited By Elec. Signed By Dena Sims MD #PAWPR Dena Sims MD #PAWPR on 07/11/2021 10:09 ET on 07/11/2021 10:09 ET Revision Number - 2 Verified/Reviewed by 07/11/[id number] [facility] PATIENT NAME: ONDINA DE LA FUENTE [address] MEDICAL REC #: [id number] [place] [address] [facility] REPORT STATCARE PHYSICIAN Normal [facility] SIMONE MAMMO SCREENINGon 01-10 SIMONE MAMMO SCREENING BILATERAL DIGITAL S CREENING MAMMOGRAM TOMOSYNTHESIS WITH CAD: 01/10/2021 Ordering Physician: Navin aBss M.D. CLINICAL: Screening. Comparison is made to exams dated: 03/22/2019 mammogram - [facility] and 03/09/2018 mammogram - [facility]. The tissue of both [...] clinical grounds. Ulysses Carlton M.D. tlv/penrad:01/10/2021 09:23:23 Utility Tractor Operator: Lisa Marks RT(R)(M), [facility] letter sent: Mammography Normal BI-RADS: 2 Benign Reported By: ULYSSES CARLTON M.D. Signed By: ULYSSES CARLTON M.D. Normal [facility] TSHon 01-01-2021 TSH 0.990 UIU/ML Normal 0.358-3.74 0 [facility] Comment on above: Result Comment: 3rd generation ultra sensitive TSH Performed By: #### L [phone] #### [facility] [address] [place] [address] Vital Signs Date Time Vital Sign Value Performing Clinician Miles henriquez 10-08-2024 11:55-0400 Body height 170.18 cm Andrea Moreno MD Work Phone: [facility] 10-08-2024 11:55-0400 Body mass index (BMI) [Ratio] 23.2 kg/m2 Andrea Moreno MD Work Phone: [facility] 10-08-2024 11:55-0400 Body temperature 98.2 [degF] Andrea Moreno MD Work Phone: [facility] 10-08-2024 11:55-0400 Body weight 67.35 kg Andrea Moreno MD Work Phone: [facility] 10-08-2024 11:55-0400 Diastolic blood pressure 76 mm[Hg] Andrea Moreno MD Work Phone: [facility] 10-08-2024 11:55-0400 Heart rate 72 /min Andrea Moreno MD Work Phone: [facility] 10-08-2024 11:55-0400 Respiratory rate 16 /min Andrea Moreno MD Work Phone: [facility] 10-08-2024 11:55-0400 SaO2% (BldA) [Mass fraction] 96 % Andrea Moreno MD Work Phone: [facility] 10-08-2024 11:55-0400 Systolic blood pressure 144 mm[Hg] Andrea Moreno MD Work Phone: [facility] 09-09-2023 13:22-0400 Body height 164.6 cm Anushka Shine MD Work Phone: [facility] 09-09-2023 13:22-0400 Body mass index (BMI) [Ratio] 24.95 kg/m2 Anushka Shine MD Work Phone: [facility] 09-09-2023 13:22-0400 Body weight 67.59 kg Anushka Shine MD Work Phone: [facility] 09-09-2023 13:22-0400 Diastolic blood pressure 74 mm[Hg] Anushka Shine MD Work Phone: [facility] 09-09-2023 13:22-0400 Heart rate 92 /min Anushka Shine MD Work Phone: [facility] 09-09-2023 13:22-0400 Respiratory rate 15 /min Anushka Shine MD Work Phone: [facility] 09-09-2023 13:22-0400 SaO2% (BldA) [Mass fraction] 94 % Anushka Shine MD Work Phone: [facility] 09-09-2023 13:22-0400 Systolic blood pressure 122 mm[Hg] Anushka Shine MD Work Phone: [facility] 11-11-2022 11:40-0400 Diastolic blood pressure 61 mm[Hg] [facility] 11-11-2022 11:40-0400 Heart rate 64 /min [facility] 11-11-2022 11:40-0400 Respiratory rate 13 /min [facility] 11-11-2022 11:40-0400 SaO2% (BldA) [Mass fraction] 95 % [facility] 11-11-2022 11:40-0400 Systolic blood pressure 127 mm[Hg] [facility] 11-11-2022 09:09-0400 Body height 170.18 cm [facility] 11-11-2022 09:09-0400 Body mass index (BMI) [Ratio] 22.8 kg/m2 [facility] 11-11-2022 09:09-0400 Body temperature 95.1 [degF] [facility] 11-11-2022 09:09-0400 Body weight 66.31 kg [facility] Encounters Encounter Date Encounter Type Care Provider Facility Start: 10-08-2024 End: 10-08-2024 Patient encounter procedure Rodney OSPINA -[facility] Work Phone: Start: 10-08-2024 End: 10-08-2024 ambulatory Andrea Moreno MD Work Phone: [facility] Start: 06-17-2024 End: 06-17-[address] Andrea Moreno MD -Outpatient Bone Densitometry Work Phone: Start: 06-17-2024 End: 06-17-2024 ambulatory Andrea Moreno Facility:[facility] Start: 06-11-2024 End: 06-11-2024 ambulatory Andrea Moreno MD Work Phone: [facility] Work Phone: Start: 06-11-2024 End: 06-11-[address] Andrea Moreno MD -Laboratory, [place] Work Phone: Start: 06-11-2024 End: 06-11-2024 ambulatory Andrea Moreno Facility:[facility] Start: 05-20-2024 Encounter for genera l adult medical examination without abnormal findings Ck Maria Del Carmen [facility] Start: 04-19-2024 End: 04-19-2024 Refill Anushka Shine MD Work Phone: Pulmonary Medicine Comment on above: Refill Request Start: 01-23-2024 End: 01-23-2024 ambulatory ANUSHKA SHINE Facility:[facility] Start: 01-23-2024 End: 01-23-2024 Patient encounter procedure Anushka Shine MD Work Phone: Pulmonary Medicine Comment on above: Cough variant asthma (Primary Dx) Start: 12-02-2023 ambulatory Ck Joyce Facility :[facility] Start: 10-23-2023 End: 10-23-2023 ambulatory ANUSHKA SHINE Facility:[facility] Start: 10-23-2023 End: 10-23-2023 Patient encounter procedure Anushka Shine MD Work Phone: Pulmonary Medicine Comment on above: Cough variant asthma (Primary Dx); Gastroesophageal reflux disease, unspecified whether esophagitis present; Nasal polyposis Start: 09-10-2023 End: 09-10-2023 ambulatory ANUSHKA SHINE Facility:[facility] Start: 09-09-2023 End: 09-09-2023 ambulatory CK JOYCE Facility:[facility] Start: 09-09-2023 End: 09-09-2023 Patient encounter procedure Anushka Shine MD Work Phone: Pulmonary Medicine Comment on above: Chronic cough (Prima ry Dx); Small airways disease; Chronic pansinusitis Start: 09-09-2023 End: 09-09-2023 Patient encounter procedure Pulm Lab [facility] Work Phone: PULM LAB [facility] Start: 09-09-2023 End: 09-09-2023 ambulatory Pulm Lab [facility] Work Phone: PULM LAB [facility] Comment on above: Spirometry Start: 09-09-2023 End: 09-09-2023 Subsequent hospital visit by physician Xr [facility] Work Phone: Radiology Comment on above: Cough, unspecified t ype [R05.9] Start: 01-14-2023 End: 01-14-2023 ambulatory [facility] Work Phone: Start: 01-14-2023 End: 01-14-2023 Discharged Recurring [facility]-Physical Therapy Work Phone: Start: 11-11-2022 End: 11-11-2022 Patient encounter procedure Lou Michel APRN.CNP Work Phone: [facility] Comment on above: Dizziness (Primary D x) Start: 11-11-2022 End: 11-11-2022 Emergency department patient visit [facility]-Emergency Department Work Phone: Start: 03-22-2022 End: 03-22-2022 [...] encounter procedure Dena Sims MD Work Phone: [facility] Start: 12-21-2019 Progress Note Dena Sims MD Work Phone: [facility] Procedures Date Procedure Procedure Detail Performing [...] Pulmonary Medicine [address] [place] [address] Anushka Shine MD [address] [place] [address] 6MO OV Pulmonary Medicine Comment on above: 6MO OV Start: 03-03-2024 Advance Directive Discussion Advance Directive Discussion [facility] Start: 01-23-2024 End: 01-23-2024 Patient encounter procedure 01/23/2024 8:45 AM EST Office Visit Pulmonary Medicine [address] [place] [address] Anushka Shine MD [address] [place] [address] 3mo ov Pulmonary Medicine Comment on above: 3mo ov Start: 11-02-2023 Covid-19 Vaccine () Covid-19 Vaccine () [facility] Start: 11-02-2023 Influenza vaccination Influenza Vacc ine (#1) [facility] Start: 10-21-2023 End: 10-21-2023 Patient encounter procedure 10/21/2023 12:15 PM EDT Office Visit Pulmonary Medicine [address] [place] [address] Anushka Shine MD [address] [place] [address] 6 WK F/U OK PER DR SHINE Pulmonary Medicine Comment on above: 6 WK F/U OK PER DR Beni ELAINE Start: 09-10-2023 End: 09-10-2023 ambulatory 09/10/2023 8:30 AM EDT Results Only [place]i [place] [facility] [address] [place] [address] Evi [place] [facility] Start: 09-09-2023 End: 12-09-2023 [facility] Lab Routine Chronic cough Expected: 09/09/2023, Expires: 12/09/2023 [facility] Work Phone: Comment on above: Expected: 09/09/2023 , Expires: 12/09/2023 Start: 09-09-2023 End: 12-09-2023 Eosinophils [#/volume] in Blood EOSINOPHIL ABS COUNT Lab Routine Chronic cough Expected: 09/09/2023, Expires: 12/09/2023 [facility] Comment on above: Expected: 09/09/2023 , Expires: 12/09/2023 Start: 09-09-2023 End: 12-09-2023 IgE [Units/volume] in Serum or Plasma IMMUNOGLOBULIN E Lab Routine Chronic cough Expected: 09/09/2023, Expires: 12/09/2023 [facility] Comment on above: Expected: 09/09/2023 , Expires: 12/09/2023 Start: 03-03-2023 Advance Directive Discussion Advance Directive Discussion [facility] Start: 03-03-2023 Behavioral Health Screening Behavioral Health Screening [facility] Start: 11-01-2022 Covid-19 Vaccine () Covid-19 Vaccine () [facility] Start: 11-01-2022 Influenza vaccination INFLUENZA (#1) [facility] Start: 07-13-2022 COVID-19 VACCINE (5 - Pfizer series) COVID-19 VACCINE (5 - Pfizer series) [facility] Start: 03-03-2022 ADVANCE DIRECTIVE DISCUSSION ADVANCE DIRECTIVE DISCUSSION [facility] Start: 03-03-2022 DEPRESSION ASSESSMENT DEPRESSION ASS ESSMENT [facility] Start: 11-01-2021 Influenza vaccination INFLUENZA (#1) [facility] Start: 2019 RSV Vaccine (1 - 1-d ose 75+ series) RSV Vaccine (1 - 1-dose 75+ series) [facility] Start: 2009 BONE DENSITY BONE DENSITY [facility] Start: 2009 Pneumococcal Vaccine : 65+ (1 of 1 - PCV) Pneumococcal Vaccine: 65+ (1 of 1 - PCV) [facility] Start: 2009 PNEUMOCOCCAL: 65+ (1 - PCV) PNEUMOCOCCAL: 65+ (1 - PCV) [facility] Start: 2009 Screening for osteoporosis Bone Density Screening [facility] Start: 2004 RSV Vaccine (1 - 1-d ose 60+ series) RSV Vaccine (1 - 1-dose 60+ series) [facility] Start: 1994 Pneumococcal Vaccine : 50+ (1 of 1 - PCV) Pneumococcal Vaccine: 50+ (1 of 1 - PCV) [facility] Start: 1994 SHINGRIX VACCINE (1 of 2) SHINGRIX VACCINE (1 of 2) [facility] Start: 1989 DIABETES SCREEN DIABETES SCREEN [facility] Start: 1989 Diabetes Screening Diabetes Screenin g [facility] Start: 1963 Urine microalbumin profile [facility] Start: 1962 Annual PCP Team Laboratory Assistant teena Disease Visit Annual PCP Team Chronic Disease Visit [facility] Start: 1962 Anxiety Screening Anxiety Screening [facility] Start: 1962 Depression Screening Depression Scre ening [facility] Start: 1962 HEPATITIS C SCREENING HEPATITIS C SC JULIA [facility] Patient Education ED Dizziness, Uncertain Cause [facility] Work Phone: Patient referral [facility] Work Phone: SARS-CoV-2 (COVID-19 ) Ag [Presence] in Upper respiratory specimen by Rapid immunoassa [facility] XR Chest PA and Lateral XR CHEST 2V FRONTAL/LAT Radiology Routine Cough, unspecified type 09/09/2023 9:26 AM EDT [facility] Work Phone: Immunizations Immunization Date Immunization Notes Care Provider Court [place] 12-06-2019 influenza virus vacc ine, unspecified formulation [facility] Work Phone: [facility] Payers Date Payer Category Payer Self-pay 2022 Medicare [employer] MEDICARE [employer] GOLD PLUS [id number] 2022-Present [phone] [place] [id number] [facility] [id number] 2022 Medicare (Managed Care) [employer] G OLD PLUS [id number] 2022 Private Health Insurance [id number] Unknown [id number] Unknown [id number] Unknown [id number] Unknown [id number] Social History Date Type Detail Facility Start: 11-11-2022 End: 11-11-2022 Tobacco smoking status NHIS Tobacco smoking consumption unknown [facility] Start: 1945 Sex Assigned At Not on file [facility] Start: 1945 Sex Assigned At Female [facility] Start: 11-11-2022 End: 10-23-2023 History of Social function [facility] Start: 11-11-2022 End: 10-23-2023 Area Deprivation Index [facility] National Score (1-10 0), lower number is lower risk 49 [facility] Start: 09-09-2023 End: 10-08-2024 Tobacco smoking status AZIS Never smoked tobacco [facility] History of tobacco use Passive smoker [facility] Start: 09-09-2023 Tobacco use and exposure Smoke less tobacco non-user [facility] Start: 09-09-2023 Tobacco Comment smoked for 25 years [facility] Start: 06-17-2024 Sex Female (finding) [facility] Mental Status Date Assessment Result Facility 11-11-2022 Cognitive function Level Of Cons ciousness Awake;Alert;Appropriate;Follow s Commands [facility] Work Phone: Clinical Notes 12-21-2019 to 04-19-2024 [...] to resume [employer]. They are currently in [place] for the winter. Patient phones requesting refills as follows: Requested Prescriptions Pending Prescriptions Disp Refills fluticasone furoate (ARNUITY ELLIPTA) 100 mcg/actuation inhaler 1 Each 5 Sig: Inhale 1 Puff as instructed once daily. Please review and advise. Sarai Brunson LPN [facility] 04-19-2024 Miscellaneous Notes Formatting of this note is different fro m the original. FRANKO 01/23/24. Patient has had recurrence of cough and would like to resume [employer]. They are currently in [place] for the winter. Patient phones requesting refills as follows: Requested Prescriptions Pending Prescriptions Disp Refills fluticasone furoate (ARNUITY ELLIPTA) 100 mcg/actuation inhaler 1 Each 5 Sig: Inhale 1 Puff as instructed once daily. Please review and advise. Sarai Brunson LPN documented in this encounter [facility] 01-23-2024 Instructions Anushka Shine MD - 01/23/2024 9:20 AM EST If cough recurs then start inhaled corticosteroid first and if cough persists after restarting inhaler then restart stomach medication documented in this encounter [facility] 01-23-2024 History of Present illness Narrative Formatting of this note is different fro m the original. Images from the original note were not included. . Respiratory Gap Note Patient name: Ondina De La Fuente [...] 6 months or sooner with problems Anushka Sihne MD Respiratory Gap documented in this encounter [facility] 01-23-2024 Note HNO ID: [id number] Author: ANUSHKA SHINE MD Service: ? Author Type: Physician Type: Progress Notes Filed: 01/23/2024 11:14 Note Text: . Respiratory Gap Note Patient name: Ondina De La Fuente [...] sooner with problems Anushka Shine MD Respiratory Gap [facility] 10-23-2023 History of Present illness Narrative Formatting of this note is different fro m the original. Images from the original note were not included. . Respiratory Gap Note Patient name: Ondina De La Fuente [...] Flonase nasal spray Anushka Shine MD Respiratory Gap documented in this encounter [facility] 10-23-2023 Note HNO ID: [id number] Author: ANUSHKA SHINE MD Service: ? Author Type: Physician Type: Progress Notes Filed: 10/23/2023 10:10 Note Text: . Respiratory Gap Note Patient name: Ondina De La Fuente [...] Flonase nasal spray Anushka Shine MD Respiratory Gap [facility] 07-09-2024 History of Present illness Narrative Formatting of this note is different fro m the original. Images from the original note were not included. . Respiratory Gap Note Patient name: Ondina De La Fuente [...] methacholine challenge test Anushka Shine MD Respiratory Gap documented in this encounter [facility] 09-09-2023 Note HNO ID: [id number] Author: ANUSHKA SHINE MD Service: ? Author Type: Physician Type: Progress Notes Filed: 09/09/2023 15:16 Note Text: . Respiratory Gap Note Patient name: Ondina De La Fuente [...] Neurologic: Alert and (more content not included)... [facility] 09-09-2023 Nurse Note Intake information documented in the prior visit with Respiratory Therapy today. [facility] 09-09-2023 Nurse Note Intake information documented in the prior visit with Respiratory Therapy today. documented in this encounter [facility] 09-09-2023 Note HNO ID: [id number] Author: MERVIN ORONA, LINDA Service: ? Author Type: Registered Resp Therapist Type: Progress Notes Filed: 09/09/2023 09:47 Note Text: PULM FUNCTION: Provider: Ck Ayala MD Spirometry w/BD: 1 Exhaled Nitric Oxide: 1 [facility] 09-09-2023 Note HNO ID: [id number] Author: MERVIN ORONA RRT Service: ? Author [...] DATE: September 09, 2023 TIME: 9:46 AM [facility] 09-09-2023 Procedure note Associated Order(s): NITRIC [...] DATE: September 09, 2023 TIME: 9:46 AM [facility] 09-09-2023 History of Present illness Narrative Formatting of this note might be differe nt from the original. PULM FUNCTION: Provider: Ck Ayala MD Spirometry w/BD: 1 Exhaled Nitric Oxide: 1 documented in this encounter [facility] 09-09-2023 Procedure note Associated Order(s): NITRIC OXIDE, [...] TIME: 9:46 AM documented in this encounter [facility] 09-09-2023 History of Present illness Narrative Formatting [...] PATIENT PRESENTS WITH AN IMPLANTABLE OR ATTACHED CAGE UNLOADER: No RADIOLOGY DEPARTMENT: General X-ray: Exam(s) Completed: Chest X-Ray PERIPHERAL IV DATA: Not applicable SIGNED BY: RT Tamela(Emre) September 09, 2023 10:34 AM documented in this encounter [facility] 09-09-2023 Note HNO ID: [id number] Author: SHIRLEY VYAS RT(R) Service: ? Author Type: Technologist Type: Progress Notes Filed: 09/09/2023 10:34 Note Text: Radiology Service Progress Note PATIENT NAME: Ondina [...] PATIENT PRESENTS WITH AN IMPLANTABLE OR ATTACHED CAGE UNLOADER: No RADIOLOGY DEPARTMENT: General X-ray: Exam(s) Completed: Chest X-Ray PERIPHERAL IV DATA: Not applicable SIGNED BY: RT Taemla(Emre) September 09, 2023 10:34 AM [facility] 11-11-2022 History of Present illness Narrative [...] will take her. documented in this encounter [facility] 12-21-2019 History of Present illness Narrative DATE [...] Patient understands and agrees. Dena Sims MD [id number] SSI File#: [id number] END OF DOCUMENT / CHANGE LOG FOLLOWS Last Edited By [employer]. Signed By Dena Sims MD #PAWPR Dena Sims MD #PAWPR on 12/23/2019 08:20 ET on 12/23/2019 08:20 ET Revision Number - 2 ^^^ Verified/Reviewed by 12/23/[address] [facility] PATIENT NAME: ONDINA DE LA FUENTE [address] [facility] [address] MEDICAL REC #: [id number] [place] [address] [facility] RE[facility] PHYSICIAN documented in this encounter [facility] Evaluation note No assessment information availa [facility] Work Phone: Evaluation note Diagnosis Dizziness- Primary Dizziness and giddiness [facility] Diagnosis Cough, unspecified type- Primary [facility] Diagnosis Chronic cough- Primary Cough Small airways disease Other diseases of lung, not elsewhere classified Chronic pansinusitis Other chronic sinusitis [facility] Diagnosis Cough, unspecified type [facility] Diagnosis Cough variant asthma- Primary Gastroesophageal reflux disease, unspecified whether esophagitis present Nasal polyposis Unspecified nasal polyp [facility] Diagnosis Cough variant asthma- Primary [facility] for referral (narrative)No reason for referral information availableWUniversity [facility]als [facility] Work Phone: Summary Purpose Family History No Family History Records FoundNo Family History Records FoundNo Family History Records FoundNo Family History Records Found Advance Directives No Advanced Directives Records Found Advance Directive Response Recorded Date/ Time Living Will No November 11, 2022 9:30am Power of Motorcoach Driver No November 9:30am Advance Directive Response Recorded Date/ Time Living Will No November 11, 2022 8:30am Power of Motorcoach Driver No November 8:30am Chief Complaint and Reason [...] or prosecute any alcohol or drug abuse patient.[facility] the event this information is protected by the Federal Confidentiality of Alcohol and Drug Abuse Patient Records regulations: The Federal rules restrict any use of the information to criminally investigate or prosecute any alcohol or drug abuse patient.[facility] the event this information is protected by the Federal Confidentiality of Alcohol and Drug Abuse Patient Records regulations: The Federal rules restrict any use of the information to criminally investigate or prosecute any alcohol or drug abuse patient.[facility] the event this information is protected by the Federal Confidentiality of Alcohol and Drug Abuse Patient Records regulations: The Federal rules restrict any use of the information to criminally investigate or prosecute any alcohol or drug abuse patient.[facility] the event this information is protected by the Federal Confidentiality of Alcohol and Drug Abuse Patient Records regulations: The Federal rules restrict any use of the information to criminally investigate or prosecute any alcohol or drug abuse patient.[facility] the event this information is protected by the Federal Confidentiality of Alcohol and Drug Abuse Patient Records regulations: The Federal rules restrict any use of the information to criminally investigate or prosecute any alcohol or drug abuse patient.[facility] the event this information is protected by the Federal Confidentiality of Alcohol and Drug Abuse Patient Records regulations: The Federal rules restrict any use of the information to criminally investigate or prosecute any alcohol or drug abuse patient.[facility] the event this information is protected by the Federal Confidentiality of Alcohol and Drug Abuse Patient Records regulations: The Federal rules restrict any use of the information to criminally investigate or prosecute any alcohol or drug abuse patient.[facility] the event this information is protected by the Federal Confidentiality of Alcohol and Drug Abuse Patient Records regulations: The Federal rules restrict any use of the information to criminally investigate or prosecute any alcohol or drug abuse patient.[facility] the event this information is protected by the Federal Confidentiality of Alcohol and Drug Abuse Patient Records regulations: The Federal rules restrict any use of the information to criminally investigate or prosecute any alcohol or drug abuse patient.[facility] the event this information is protected by the Federal Confidentiality of Alcohol and Drug Abuse Patient Records regulations: The Federal rules restrict any use of the information to criminally investigate or prosecute any alcohol or drug abuse patient.[facility] INFORMATION SOURCE (unrecogn ized section and content) DATE CREATED AUTHOR 07/13/2021 [facility] [place] DATE CREATED AUTHOR AUTHOR'S ORGANIZ ATION 11/30/2023 [facility] DATE CREATED AUTHOR AUTHOR'S ORGANIZ ATION 01/26/2024 [facility] DATE CREATED AUTHOR AUTHOR'S ORGANIZ ATION 10/10/2024 [facility] Care Teams (unrecognized sec tion and content) Flag Maker Relationship Specialty Start Date End Date Ck Joyce MD [address] [facility] [address] [place] [address] PCP - General Family Medicine 03/19/22 Team Status: Active Member Role Status Dates Ck Joyce Primary Care Provider Active Team Status: Inactive Member Role Status Dates Dr. Shanell Rodgers , Emergency Provider Active Maria Del Carmen Dubon MD Primary Care Provider Active Flag Maker Relationship Specialty Start Date End Date Ck Joyce MD [address] [facility] [address] [place] [address] PCP - General Family Medicine 03/19/22 Team Status: Inactive Member Role Status Dates Maria Del Carmen Dubon MD Primary Care Provider Active PILAR LY Attending Provider Active Flag Maker Relationship Specialty Start Date End Date Ck Joyce MD [address] [facility] [address] [place] [address] PCP - General Family Medicine 03/19/22 Flag Maker Relationship Specialty Start Date End Date Ck Joyce MD [address] [place] [address] PCP - General Family Medicine 03/19/22 Flag Maker Relationship Specialty Start Date End Date Ck Joyce MD [address] [place], [place] [id number] PCP - General Family Medicine 03/19/22 Flag Maker Relationship Specialty Start Date End Date Ck Joyce MD [address] [facility] [address] [place] [address] PCP - General Family Medicine 03/19/22 Flag Maker Relationship Specialty Start Date End Date Ck Joyce MD [address] [facility] [address] [place] [address] PCP - General Family Medicine 03/19/22 Flag Maker Relationship Specialty Start Date End Date Ck Joyce MD [address] [facility] [address] [place] [address] PCP - General Family Medicine 03/19/22 Team [...] Procedures Referred By Contluis t Referred To [facility] Diagnoses Cough, unspecified type Procedures SPIROMETRY - BASELINE AND POST DILATOR BRNCDILAT RSPSE SPMTRY PRE&POST-BRNCDILAT ADMN Ck Ayala MD [address] [place] [address] Respiratory Gap [address] [place] [id number] Referral ID Status Reason Start Date Expiration Date V isits Requested Visits Authorized [id number] Closed Auto-Generate d Referral 09/01/2023 09/30/2024 1 1 Specialty Diagnoses / Procedures Referred By Contac t Referred To [facility] Diagnoses Cough, unspecified type Procedures NITRIC OXIDE, EXHALED NITRIC OXIDE GAS DETERMINATION Ck Ayala MD [address] [place] [address] Respiratory Gap [facility] [place] [address] Referral ID Status Reason Start Date Expiration Date V isits Requested Visits Authorized [id number] Closed Auto-Generate d Referral 09/01/2023 09/30/2024 1 1 Reason Comments New Patient Cough Reason Comments Established Patient 6 week follow up Reason Comments Established Patient 3 month follow up co [facility] Cough Reason Onset Date Comments Refill Request [...] BE BASED ON THE PRIMARY CLINICAL RECORDS. [employer] provides no warranty or guarantee of the accuracy or completeness of information in this document.
== END | disposition home or self-care (01) ==
LOC: LABSPEC 21:07
PROVIDERS: PCP Family Medicine
DX: N39.0 Urinary tract infection, site not specified (principal)
CPT/HCPCS: 87086; 87088

== ENCOUNTER → 2024-12-02 | Outpatient (CLI) | payer MEDICARE, SELFPAY ==
--- NOTE | 2024-12-02 17:01 | RAD_ITS ---
PROCEDURE: ABDOMEN SINGLE VIEW 12/02/2024 REASON FOR EXAM: POSSIBLE KIDNEY STONES TECHNIQUE: Procedure Code: RADABD Modality: DX Procedure: ABDOMEN SINGLE VIEW COMPARISON: None. FINDINGS: There is a nonobstructive bowel gas pattern. There are no abnormal soft tissue calcifications identified over either renal outline or along the path of either ureter. There is severe multilevel degenerative disc disease of the lumbar spine. RAD/Abdomen Single View IMPRESSION: No evidence of acute abdominal pathology. Other findings as noted. Reading Location: [place] [id number]
--- OUTSIDE RECORDS SUMMARY | 2024-12-03 00:54 | XMS RPT_ITS | CCD ---
Author Organization [facility] Care Team Providers Care Technical Administrative Assistant Name Role Phone Unavailable Primary Care Provider Unavaildwight e Ck Joyce MD Primary Care Provider Ck Joyce MD Primary Care Provider CK JOYCE Primary Care Unavailable SANJAY, CK Referring Unavailable MARIA DEL CARMEN, CK Primary Care Unavailable SANJAY, CK Referring Unavailable MARIA DEL CARMEN, CK Primary Care Unavailable SANJAY, CK Referring Unavailable ANUSHKA SHINE Attending Unavailable MARIA DEL CARMEN, CK Primary Care Unavailable ANUSHKA SHINE Attending Unavailable MARIA DEL CARMEN, CK Primary Care Unavailable ANUSHKA SHINE Referring Unavailable MARIA DEL CARMEN, CK Primary Care Unavailable MARIA DEL CARMEN, CK Primary Care Unavailable ANUSHKA SHINE Attending Unavailable SANJAY, CK Referring Unavailable Andrea Moreno MD Primary Care Provider Andrea Moreno MD Attending Provider [phone] Andrea Moreno MD Referring Provider Rodney Mosqueda Attending Provider Andrea Moreno Attending Unavailable Tiffanie, Andrea Primary Care Unavailable Andrea Moreno Referring Unavailable Tiffanie, Andrea Primary Care Unavailable Andrea Moreno Referring Unavailable Andrea Moreno Attending Unavailable Maria Del Carmen, Ck Referring Unavailable Maria Del Carmen, Ck Attending Unavailable Maria Del Carmen, Ck Primary Care Unavailable Rodney Mosqueda Attending Unavailable Tiffanie, Andrea Primary Care Unavailable Andrea Moreno Referring Unavailable Medications Current Medications Medication Drug Class(es) Dates Sig (Normalized) Sig (Original) [id number] 200 actuat albuterol 0.09 mg/actuat metered dose inhaler (1 source) beta2-Adrenergic Agonist Start: 10-08-2024 Albuterol Sulfate (Ventolin Hfa) 90 mcg/actuation HFA aerosol inhaler Active 2 NMA INHALATION EVERY 4-6 HOURS as needed for shortness of breath or wheezing 6.7 0 October 08, 2024 12:00am alendronic acid 70 mg oral tablet (1 source) Bisphosphonate Start: 10-08-2024 take 1 tablet by mouth every week Alendronate 70 mg tablet Active 70 mg PO EVERY WEEK October 08, 2024 12:00am atorvastatin 20 mg oral tablet (4 sources) HMG-CoA Reductase Inhibitor Start: 01-31-2023 take 1 tablet by mouth once daily LIPITOR 20 mg tablet Take 20 mg by mouth once daily. 01/31/2023 Active benzonatate 100 mg oral capsule (1 source) Non-narcotic Antitussive Start: 10-08-2024 take 2 capsules by mouth three times daily as needed for cough Benzonatate 100 mg capsule Active 200 mg PO THREE TIMES A DAY as needed for cough 30 0 October 08, 2024 12:00am fluticasone propionate 0.05 mg/actuat metered dose nasal spray (10 sources) Corticosteroid Start: 10-08-2024 take 50 ug nasal route once daily Fluticasone Propionate (Flonase Allergy Relief) 50 mcg/actuation spray,suspension Active 1 NMA INTRANASAL daily October 08, 2024 12:00am administer into each nostril Start: 09-09-2023 End: 04-19-2024 take 1 puff(s) by inhalation once daily fluticasone furoate (ARNUITY ELLIPTA) 100 mcg/actuation inhaler Inhale 1 Puff as instructed once daily. 1 Each 5 04/19/2024 Active Start: 01-05-2020 take 2 spray(s) nasa l route once daily fluticasone (FLONASE ALLERGY RELIEF) 50 mcg/actuation nasal spray Use 2 Sprays in each nostril once daily. 01/05/2020 Active 30 actuat fluticasone furoate 0.1 mg/actuat / vilanterol 0.025 mg/actuat dry powder inhaler (1 source) Corticosteroid, beta2-Adrenergic Agonist Start: 10-08-2024 Fluticasone Furoate-Vilanterol (Breo Ellipta) 100-25 mcg/dose blister with device Active INHALATION daily October 08, 2024 12:00am levothyroxine sodium 0.088 mg oral tablet (5 sources) l-Thyroxine Start: 10-08-2024 Levothyroxine 88 mcg tablet Active ug PO October 08, 2024 12:00am Start: 01-05-2020 take 1 tablet by ana th once daily levothyroxine (SYNTHROID) 88 mcg tablet Take 88 mcg by mouth once daily. 01/05/2020 Active meclizine hydrochloride 25 mg chewable tablet (4 sources) Antiemetic Start: 11-11-2022 take 1 tablet by mouth three times daily as needed for dizziness Meclizine (Antivert) 25 mg tablet,chewable Active 25 mg PO THREE TIMES A DAY as needed for dizziness 14 0 November 11, 2022 1:30pm pantoprazole 40 mg delayed release oral tablet (4 sources) Proton Pump Inhibitor Start: 09-09-2023 take 1 tablet by mouth once daily in the evening pantoprazole DR (PROTONIX) 40 mg tablet Take 1 tablet by mouth once daily. Take in the evening. Do not take with Synthroid 30 tablet 5 09/09/2023 Active vit A/vit C/vit E/zinc/copper (OCUVITE PRESERVISION ORAL) (4 sources) take 1 tablet by mouth once daily vit A/vit C/vit E/zinc/copper (OCUVITE PRESERVISION ORAL) Take 1 tablet by mouth once daily. Active take 1 tablet by mouth once magali y vit A/vit C/vit E/zinc/copper (OCUVITE PRESERVISION ORAL) Take 1 tablet by mouth once daily. 0 Active Problems Active Problems Problem Classification Problem Date Documented Date Episodic/Chronic Asthma (2 sources) Cough variant asthma; Translations: [Cough variant asthma] 10-23-2023 Chronic Conditions associated with dizziness or vertigo (5 sources) Dizziness; Translations: [Dizziness and giddiness] 11-11-2022 Episodic Disorders of lipid metabolism (1 source) Hyperlipidemia, unspecified; Translations: [Hyperlipidemia, unspecified] Onset: 05-20-2024 Chronic Esophageal disorders (1 source) Gastroesophageal reflux disease; Translations: [Gastro-esophageal reflux disease without esophagitis] 10-23-2023 Chronic Genitourinary symptoms and ill-defined conditions (1 source) Urinary incontinence; Translations: [Unspecified urinary incontinence] 10-08-2024 Chronic Osteoporosis (1 source) Osteoporosis; Translations: [Age-related osteoporosis without current pathological fracture] 10-08-2024 Chronic Other lower respiratory disease (3 sources) Cough; Translations: [Cough, unspecified type] 09-09-2023 Episodic Other lower respiratory disease (2 sources) Disorder of lung; Translations: [Other disorders of lung] 09-09-2023 Episodic Other upper respiratory infections (1 source) Chronic pansinusitis; Translations: [Chronic pansinusitis] 09-09-2023 Chronic Thyroid disorders (2 sources) Hypothyroidism; Translations: [Hypothyroidism, unspecified] Onset: 05-20-2024 10-08-2024 Chronic Unclassified (1 source) Cough, unspecified type; Translations: [Cough, unspecified type] Onset: 09-09-2023 Past or Other Problems Problem Classification Problem Date Documented Da te Episodic/Chronic Other lower respiratory disease (7 sources) Chronic cough; Translations: [Chronic cough] Onset: 09-09-2023 09-09-2023 Episodic Other upper respiratory disease (6 sources) Polyp of nasal cavity and/or nasal sinus; Translations: [Nasal polyp, unspecified] Onset: 09-09-2023 09-09-2023 Episodic Other upper respiratory disease (1 source) Nasal polyp, unspecified; Translations: [Nasal polyp, unspecified] Onset: 06-17-2024 Episodic Residual codes; unclassified (1 source) Asymptomatic menopausal state; Translations: [Asymptomatic menopausal state] Onset: 06-22-2024 Episodic Results Test Name Value Interpretation Reference Range Facility Urgent Care Visit Reporton 0 10-08-2024 Urgent Care Visit Report [facility] [address], [address] [place] [address] OFFICE VISIT Date of Service: 10/08/24 MR#: [id number] Acct: [id number] Name: ONDINA DE LA FUENTE Rep #: [id number] : 1945 Provider: ANAI Tripathi Age/Sex: 79/F Location: [facility] Status: Signed Intake Vital Signs 11/11/22 09:09 10/08/24 11:55 Height 5 ft 7 in 5 ft 7 in Weight: 148 lb 8 oz BMI 23.2 BP 144/76 H Blood Pressure Location Lt brachial Position Sitting Respiration 16 Pulse 72 Pulse Source NIBP Temp 98.2 F Temp Source Oral Pulse Oximetry (%) 96 Oxygen Delivery Method room air Intake Visit Reasons: COUGH, SORE THROAT Chief Complaint: cough, ST, drainage, fatigue Focus Puller Required: No Is patient in pain?: No Allergies No Known Allergies Allergy (Verified 10/08/24 11:56) Medications ???Medication ???Instructions ???Recorded ???Confirmed ???Type meclizine 25 mg chewable tablet 25 mg PO TID PRN dizziness #14 tab s 11/11/22 Rx (Antivert) albuterol sulfate 90 mcg/actuation 2 puff inhalation Q4-6H PRN 10/2510/08/24 Rx aerosol inhaler (Ventolin HFA) shortness of breath or wheezing #6.7 grams alendronate 70 mg tablet 70 mg PO QWEEK 10/08/24 10/08/24 H istory benzonatate 100 mg capsule 200 mg (2 x 100 mg) PO TID PRN 10/2510/08/24 Rx cough #30 caps fluticasone furoate 100 inhalation QDAY 10/08/24 10/08/24 History mcg-vilanterol 25 mcg/dose inhalation powder (Breo Ellipta) fluticasone propionate 50 1 spray intranasal QDAY 10/08/24 0 10/08/24 History mcg/actuation nasal spray,suspension (Flonase Allergy Relief) levothyroxine 88 mcg tablet mcg PO 10/08/24 10/08/24 History Is last menstrual period known: No Post menopausal: Yes Patient : No Have you fallen in the past year?: No Nurse's Note: cough, ST, drainage, fatigue x 48 hours. denies fever, POWER, BA PFSH Medical History (Updated 10/08/24 @ 12:31 by Rodney OSPINA, PA) Osteoporosis Lung disease Hypothyroidism Urinary incontinence Surgical History (Updated 10/08/24 @ 11:58 by Carey Michel) History of nasal polypectomy Social History (Updated 10/08/24 @ 11:58 by Carey Michel) Smoking Status: Never smoker alcohol intake: never substance use type: does not use HPI HPI Chief Complaint: cough, ST, drainage, fatigue Details: ONDINA DE LA FUENTE, is a 79 F who presents to the office today for complaint of cough, sore throat and congestion for the past 2 days. Patient denies hemoptysis, shortness of breath or difficulty breathing. No fever, chills or sweats. No nausea, vomiting or diarrhea. No loss of taste or smell. No other associated symptoms or alleviating/aggravating factors. ROS Const Constitutional: No other (6 system ROS completed with pertinent findings in HPI.) Exam Const General: cooperative and well developed HENMT Head: normal to inspection and atraumatic Ears: hearing grossly normal bilaterally Nose: nasal discharge clear Face and sinus: normal facial exam Mouth: oral mucosae normal Throat: abnormal tonsil bilaterally hypertrophy 1+ Resp Effort Inspection: normal respiratory effort and no audible wheezes Auscultation: Bilateral: Clear to Auscultation Cardio Palpation: normal PMI Rate: regular rate Rhythm: regular rhythm Neuro General: patient alert and CN's II-XI intact bilaterally Psych Appearance: grossly normal Mental Status: mental status grossly normal Results POC SARS AG POC SARS AG Negative Last Edit by Carey Michel on 10/08/24 12:39 Coding Level of Care Code Off vis,new,level 3 Diagnoses Acute upper respiratory infection J06.9 Assessment and Plan Assessment and Plan (1) Acute upper respiratory infection: Status: Acute Plan: Patient tested negative for COVID in the office today. Albuterol and benzonatate as prescribed today. Encouraged to get plenty of rest, drink lots of clear liquids, and use Tylenol or Ibuprofen (unless contraindicated) for fever and comfort. Patient also educated on other symptomatic management techniques. To be seen in 7-10 days if no improvement; sooner if worsening of symptoms. Patient advised of potential red flags and when appropriate to report to the ED. Patient verbalized understanding and agreement with all the above. Yeah I was exaggerating her other so I was exaggerating right she has no clue Orders: Orders POC Rapid SARS Antigen Today Medications: New albuterol sulfate 90 mcg/actuation (Ventolin HFA) 2 puffs inhalation Q4-6H PRN 6.7 grams 0RF shortness of breath or wheezing benzonatate 200 mg (2 x 100 mg) PO TID PRN 30 caps 0RF cough Clinical Quality Measures Falls Risk Screening/Assistive Devices Have you fallen in the past year?: No 10/08 (more content not included)... Normal [facility] Dexa Bone Density Studyon Dexa Bone Density Study [facility] Services [address] [place], [place] [address] Dexa Bone Density Study MR#: [id number] Acct: [id number] Name: ONDINA DE LA FUENTE Rep #: [id number] : 1945 F 79 From: Sudheer chadwick MD PCP: Dr. Andrea Moreno MD Status: REG CLI Study: Dexa Bone Density Study Date of Exam: 06/17/24 Exam# [id number] Ordering Dr: Andrea Moreno MD PROCEDURE: DEXA BONE DENSITY STUDY 06/17/2024 REASON FOR EXAM: F, age 79 y/o . Postmenopausal. TECHNIQUE: DXA scan of the lumbar spine and both hips, using make and model. REFERENCE LINKS: ISCD Adult Positions COMPARISON: None FINDINGS: BMD and T-SCORES Lumbar spine: 0.678 g/cm2, T-Score -3.1 L1 through L4 Left femoral neck: 0.522 g/cm2, T-Score -2.9 Femoral neck comparison data not recommended for monitoring change. Left total hip: 0.644 g/cm2, T-Score -2.4 Right femoral neck: 0 point 520 g/cm2, T-Score -3.0 Femoral neck comparison data not recommended for monitoring change. Right total hip: 0.612 g/cm2, T-Score -2.7 Fracture Risk Calculation: FRAX (10-year Fracture Risk) Score: FRAX scores should never be reported in a patient with osteoporosis on DEXA or for any patient that is on bone medication. The patient doesmeet the pharmacological treatment recommendations for prevention of osteoporosis BD/Dexa Bone Density Study IMPRESSION: OSTEOPOROSIS. Recommend follow-up as clinically warranted. Reading Location: [facility] CC: Dr. Andrea Moreno MD Passenger Interline Clerk: Signed Normal [facility] Absolute lymphocyte countOrd ered By: Andrea Moreno on 06-11-2024 Lymphocytes Auto (Unsp spec) [#/Vol] 1.11 10*3/uL 0.83-4.51 [facility] Absolute neutrophil countOrd ered By: Andrea Leivake on 06-11-2024 Neutrophils (Bld) [#/Vol] 1.9 10*3/uL Low 2.0-7.7 [facility] Anion gap in Serum or Plasma Ordered By: Andrea Tiffanie on 06-11-2024 Anion gap [Moles/Vol] 10 mmol/L 5-15 [facility] Automated lymphocyte count a s percentage of total leukocytesOrdered By: Andrea Leivake on 06-11-2024 Lymphocytes/100 WBC Auto (Unsp spec) 28.2 % 19-41 [facility] BUN/creatinine ratioOrdered By: [facility] Leivake on 06-11-2024 Urea nitrogen/Creatinine [Mass ratio] 20.8 mg/mg High 10-20 [facility] Basophil percentageOrdered B y: Andrea Leivake on 06-11-2024 Basophils/100 WBC (Bld) 0.8 % 0-1 [facility] Bilirubin, totalOrdered By: Andrea Tiffanie on 06-11-2024 Bilirubin [Mass/Vol] 0.29 mg/dL 0.00-1.30 [facility] CBC W/Diff, Automatedon 06-01 Absolute Lymph 1.11 X10 3/uL Normal 0.83-4.51 [facility] Comment on above: Performed By: #### L 100.0100, L500.4100, L500.4050, L506.1001, L501.9520 #### [facility] [address] [place], [address] Absolute Neut 1.9 X10 3/uL Low 2.0-7.7 [facility] Comment on above: Performed By: #### L 100.0100, L500.4100, L500.4050, L506.1001, [id number] #### [facility] [address] [place], [address] Basophils/100 WBC (Bld) 0.8 % Normal 0-1 [facility] Comment on above: Performed By: #### L 100.0100, L500.4100, L500.4050, L506.1001, L501.9520 #### [facility] [address] [place], [address] Eosinophils/100 WBC (Bld) 9.9 % High 0-5 [facility] Comment on above: Performed By: #### L 100.0100, L500.4100, L500.4050, L506.1001, L501.9520 #### [facility] [address] [place], [address] Erythrocyte distribution width (RBC) [Ratio] 12.8 % Normal 11.6-14.6 [facility] Comment on above: Performed By: #### L 100.0100, L500.4100, L500.4050, L506.1001, L501.9520 #### [facility] [address] [place], [address] Hematocrit (Bld) [Volume fraction] 44.4 % Normal 37-47 [facility] Comment on above: Performed By: #### L 100.0100, L500.4100, L500.4050, L506.1001, L501.9520 #### [facility] [address] [place], [address] Hemoglobin (Bld) [Mass/Vol] 14.4 g/dL Normal 12.0-15.0 [facility] Comment on above: Performed By: #### L 100.0100, L500.4100, L500.4050, L506.1001, L501.9520 #### [facility] [address] [place], [address] IG% 0.300 Normal 0.0-0.9 [facility] Comment on above: Result Comment: IG% - Immature Granulocytes (promyelocytes, myelocytes and metamyelocytes) > 1% indicates that a LEFT SHIFT is Present. Performed By: #### L 100.0100, L500.4100, L500.4050, L506.1001, L501.9520 #### [facility] [address] [place], [address] Lymphocytes/100 WBC (Bld) 28.2 % Normal 19-41 [facility] Comment on above: Performed By: #### L 100.0100, L500.4100, L500.4050, L506.1001, L501.9520 #### [facility] [address] [place], [address] MCH (RBC) [Entitic mass] 30.8 pg Normal 27.0-32.0 [facility] Comment on above: Performed By: #### L 100.0100, L500.4100, L500.4050, L506.1001, L501.9520 #### [facility] [address] [place], [address] MCHC (RBC) [Mass/Vol] 32.4 g/dL Normal 32-36 [facility] Comment on above: Performed By: #### L 100.0100, L500.4100, L500.4050, L506.1001, L501.9520 #### [facility] [address] [place], [address] MCV (RBC) [Entitic vol] 94.9 fL Normal 81-99 [facility] Comment on above: Performed By: #### L 100.0100, L500.4100, L500.4050, L506.1001, L501.9520 #### [facility] [address] [place], [address] Monocytes/100 WBC (Bld) 12.7 % High 0-10 [facility] Comment on above: Performed By: #### L 100.0100, L500.4100, L500.4050, L506.1001, L501.9520 #### [facility] [address] [place], [address] Neutrophils/100 WBC (Bld) 48.1 % Normal 47-70 [facility] Comment on above: Performed By: #### L 100.0100, L500.4100, L500.4050, L506.1001, L501.9520 #### [facility] [address] [place], [address] Nucleated RBC (Bld) [#/Vol] 0 10*3/uL Normal 0-5 [facility] Comment on above: Performed By: #### L 100.0100, L500.4100, L500.4050, L506.1001, L501.9520 #### [facility] [address] [place], [address] Platelet mean volume (Bld) [Entitic vol] 9.6 fL Normal 6.2-12.0 [facility] Comment on above: Performed By: #### L 100.0100, L500.4100, L500.4050, L506.1001, L501.9520 #### [facility] [address] [place], [address] Platelets (Bld) [#/Vol] 261 10*3/uL Normal 150-450 [facility] Comment on above: Performed By: #### L 100.0100, L500.4100, L500.4050, L506.1001, L501.9520 #### [facility] [address] [place], [address] RBC (Bld) [#/Vol] 4.68 10*6/uL Normal 4.2-5.4 [facility] Comment on above: Performed By: #### L 100.0100, L500.4100, L500.4050, L506.1001, L501.9520 #### [facility] [address] [place], [address] RDW SD 44.1 fl High 35.1-43.9 [facility] Comment on above: Performed By: #### L 100.0100, L500.4100, L500.4050, L506.1001, L501.9520 #### [facility] [address] [place], [address] WBC (Bld) [#/Vol] 3.9 10*3/uL Low 4.4-11.0 [facility] Comment on above: Performed By: #### L 100.0100, L500.4100, L500.4050, L506.1001, L501.9520 #### [facility] [address] [place], [address] Calculated very low density lipoprotein (VLDL) cholesterol measurementOrdered By: Andrea Moreno on 06-11-2024 Calculated very low density lipoprotein (VLDL) cholesterol measurement 11 mg/dL [facility] VLDL Cholesterol 11 mg/dL - [facility] Carbon dioxide, total [Moles /volume] in Central venous bloodOrdered By: Andrea Moreno on 06-11-2024 CO2 [Moles/Vol] 28.2 mmol/L 21.0-32.0 [facility] Chloride assayOrdered By: Jagruti Moreno on 06-11-2024 Chloride [Moles/Vol] 105 mmol/L 98-108 [facility] Comprehensive Metabolic Prof ilon 06-11-2024 Albumin [Mass/Vol] 3.8 g/dL Normal 3.4-4.8 [facility] Comment on above: Performed By: #### L 100.0100, L500.4100, L500.4050, L506.1001, L501.9520 #### [facility] [address] [place], [address] Albumin/Globulin [Mass ratio] 1.1 {ratio} Normal 0.9-2.4 [facility] Comment on above: Performed By: #### L 100.0100, L500.4100, L500.4050, L506.1001, L501.9520 #### [facility] [address] [place], [address] ALK PHOS 45 U/L Normal 35-104 [facility] Comment on above: Performed By: #### L 100.0100, L500.4100, L500.4050, L506.1001, L501.9520 #### [facility] [address] [place], [address] ALT [Catalytic activity/Vol] 20 U/L Normal <=34 [facility] Comment on above: Performed By: #### L 100.0100, L500.4100, L500.4050, L506.1001, L501.9520 #### [facility] [address] [place], [address] AST [Catalytic activity/Vol] 25 U/L Normal <=31 [facility] Comment on above: Performed By: #### L 100.0100, L500.4100, L500.4050, L506.1001, L501.9520 #### [facility] [address] [place], [address] Bilirubin [Mass/Vol] 0.29 mg/dL Normal 0.00-1.30 [facility] Comment on above: Performed By: #### L 100.0100, L500.4100, L500.4050, L506.1001, L501.9520 #### [facility] [address] [place], [address] BUN/CRE 20.8 RATIO High 10-20 [facility] Comment on above: Performed By: #### L 100.0100, L500.4100, L500.4050, L506.1001, L501.9520 #### [facility] [address] [place], [address] Calcium [Mass/Vol] 10.0 mg/dL Normal 7.6-11.0 [facility] Comment on above: Performed By: #### L 100.0100, L500.4100, L500.4050, L506.1001, L501.9520 #### [facility] [address] [place], [address] Chloride [Moles/Vol] 105 mmol/L Normal 98-108 [facility] Comment on above: Performed By: #### L 100.0100, L500.4100, L500.4050, L506.1001, L501.9520 #### [facility] [address] [place], [address] CO2 [Moles/Vol] 28.2 mmol/L Normal 21.0-32.0 [facility] Comment on above: Performed By: #### L 100.0100, L500.4100, L500.4050, L506.1001, [id number] #### [facility] [address] [place], [address] Creatinine [Mass/Vol] 0.67 mg/dL Low 0.70-1.20 [facility] Comment on above: Performed By: #### L 100.0100, L500.4100, L500.4050, L506.1001, [id number] #### [facility] [address] [place], [address] GAP 10 Normal 5-15 [facility] Comment on above: Performed By: #### L 100.0100, L500.4100, L500.4050, L506.1001, [id number] #### [facility] [address] [place], [address] GFR/1.73 sq M.predicted among non-blacks MDRD (S/P/Bld) [Vol rate/Area] 88 mL/min/{1.73_m2} Normal >60 [facility] Comment on above: Result Comment: mL/m in/1.73m2 CKD-EPI Creatinine Equation (2020) Performed By: #### L 100.0100, L500.4100, L500.4050, L506.1001, [id number] #### [facility] [address] [place], [address] Globulin (S) [Mass/Vol] 3.4 g/dL Normal 2.2-4.2 [facility] Comment on above: Performed By: #### L 100.0100, L500.4100, L500.4050, L506.1001, [id number] #### [facility] [address] [place], [address] Glucose [Mass/Vol] 93 mg/dL Normal 70-99 [facility] Comment on above: Performed By: #### L 100.0100, L500.4100, L500.4050, L506.1001, [id number] #### [facility] [address] [place], [address] Potassium [Moles/Vol] 4.4 mmol/L Normal 3.3-5.1 [facility] Comment on above: Performed By: #### L 100.0100, L500.4100, L500.4050, L506.1001, [id number] #### [facility] [address] [place], [address] Sodium [Moles/Vol] 143 mmol/L Normal 133-145 [facility] Comment on above: Performed By: #### L 100.0100, L500.4100, L500.4050, L506.1001, [id number] #### [facility] [address] [place], [address] T PROT 7.3 g/dL Normal 5.9-8.4 [facility] Comment on above: Performed By: #### L 100.0100, L500.4100, L500.4050, L506.1001, [id number] #### [facility] [address] [place], [address] Urea nitrogen [Mass/Vol] 14 mg/dL Normal 4-19 [facility] Comment on above: Performed By: #### L 100.0100, L500.4100, L500.4050, L506.1001, [id number] #### [facility] [address] [place], [address] Eosinophil percentageOrdered By: Andrea Moreno on 06-11-2024 Eosinophils/100 WBC (Bld) 9.9 % High 0-5 [facility] Erythrocyte distribution wid th (RBC) [Ratio]Ordered By: Andrea Moreno on 06-11-2024 Erythrocyte distribution width (RBC) [Entitic vol] 44.1 fL High 35.1-43.9 [facility] Erythrocyte distribution wid th ratioOrdered By: Andrea Moreno on 06-11-2024 Erythrocyte distribution width (RBC) [Ratio] 12.8 % 11.6-14.6 [facility] Erythrocyte distribution wid th standard deviationOrdered By: [facility]uel Tiffanie on 06-11-2024 Erythrocyte distribution width (RBC) [Ratio] 44.1 fl High 35.1-43.9 [facility] GFR/1.73 sq M.predicted [place] g non-blacks MDRD (S/P/Bld) [Vol rate/Area]Ordered By: Andrea Moreno on 06-11-2024 Estimated GFR (MDRD) Non-Af Amer 88 >60 [facility] Comment on above: mL/min/1.73m2 CKD-EP I Creatinine Equation (2020) Glomerular filtration rate ( GFR) estimation/1.73 sq m using serum, plasma, or whole bOrdered By: Andrea Moreno on 06-11-2024 GFR/1.73 sq M.predicted among non-blacks MDRD (S/P/Bld) [Vol rate/Area] 88 mL/min/{1.73_m2} >60 [facility] Comment on above: mL/min/1.73m2 CKD-EP I Creatinine Equation (2020) Hematocrit Auto (Bld) [Volum e fraction]Ordered By: Andrea Moreno on 06-11-2024 Hematocrit (Bld) [Volume fraction] 44.4 % 37-47 [facility] Hemoglobin measurementOrdere d By: Andrea Moreno on 06-11-2024 Hemoglobin (Bld) [Mass/Vol] 14.4 g/dL 12.0-15.0 [facility] Immature granulocytes/100 WB C Auto (Bld)Ordered By: Andrea Moreno on 06-11-2024 Immature granulocytes/100 WBC (Bld) 0.300 % 0.0-0.9 [facility] Comment on above: IG% - Immature Granu locytes (promyelocytes, myelocytes and metamyelocytes) > 1% indicates that a LEFT SHIFT is Present. LDL calc ser/plasOrdered By: Andrea Moreno on 06-11-2024 Cholesterol in LDL [Mass/Vol] 158 mg/dL [facility] Comment on above: Fhypbcoykq=221-284 m g/dL & Higher Drkz=473 mg/dL or greater LDL Cholesterol, Calculated 158 mg/dL [facility] Comment on above: Skjnvpfksy=870-017 m g/dL & Higher Lwvm=632 mg/dL or greater Laboratory - Chemistry and C hemistry - challengeOrdered By: Andrea Moreno on 06-11-2024 AST [Catalytic activity/Vol] 25 U/L <32 [facility] Lipid Profileon 06-11-2024 CHOL:HDL 2.84 Normal [facility] Comment on above: Performed By: #### L 100.0100, L500.4100, L500.4050, L506.1001, L501.9520 #### [facility] [address] [place], [address] Cholesterol [Mass/Vol] 261 mg/dL High <=200 [facility] Comment on above: Result Comment: Chol esterol level, Desirable <200 mg/dL Borderline high cholesterol 200-239 mg/dL High cholesterol >=240 mg/dL Recommendations of the NCEP Adult Treatment Panel for the following risk-cutoff thresholds for the [place] population. Performed By: #### L 100.0100, L500.4100, L500.4050, L506.1001, L501.9520 #### [facility] [address] [place], [address] Cholesterol in HDL [Mass/Vol] 92 mg/dL Normal [facility] Comment on above: Result Comment: Kika onal Cholesterol Education Program (NCEP) guidelines: <40 mg/dL: Low HDL-cholesterol (major risk factor for CHD) >= 60 mg/dL: High HDL-cholesterol (negative risk factor for CHD) HDL-cholesterol is affected by a number of factors, e.g. smoking, exercise, hormones, sex and age. Performed By: #### L 100.0100, L500.4100, L500.4050, L506.1001, L501.9520 #### [facility] [address] [place], [address] Cholesterol in LDL [Mass/Vol] 158 mg/dL Normal [facility] Comment on above: Result Comment: Bord tfvxrb=459-934 mg/dL Higher Xnkv=054 mg/dL or greater Performed By: #### L 100.0100, L500.4100, L500.4050, L506.1001, L501.9520 #### [facility] [address] [place], [address] Cholesterol in VLDL [Mass/Vol] 11 mg/dL Normal 5-40 [facility] Comment on above: Performed By: #### L 100.0100, L500.4100, L500.4050, L506.1001, L501.9520 #### [facility] [address] [place], [address] Triglyceride [Mass/Vol] 57 mg/dL Normal [facility] Comment on above: Result Comment: The drugs N-Acetylcysteine and Metamizole may falsely depress this assay. Normal range: <150 mg/dL Borderline High: 150-199 mg/dL High: 200-499 mg/dL Very High: >500 mg/dL Performed By: #### L 100.0100, L500.4100, L500.4050, L506.1001, L501.9520 #### [facility] [place], [address] Lymphocytes Auto (Unsp spec) [#/Vol]Ordered By: Andrea Moreno on 06-11-2024 Lymphocytes (Bld) [#/Vol] 1.11 10*3/uL 0.83-4.51 [facility] Lymphocytes/100 WBC Auto (Un sp spec)Ordered By: Andrea Tiffanie on 06-11-2024 Lymphocytes/100 WBC (Bld) 28.2 % 19-41 [facility] MCV (mean corpuscular volume ) determinationOrdered By: Andrea Moreno on 06-11-2024 MCV (RBC) [Entitic vol] 94.9 fL 81-99 [facility] Mean corpuscular hemoglobin (MCH) determinationOrdered By: Andrea Moreno on 06-11-2024 MCH (RBC) [Entitic mass] 30.8 pg 27.0-32.0 [facility] Mean corpuscular hemoglobin concentration (MCHC) determinationOrdered By: Andrea Moreno on 06-11-2024 MCHC (RBC) [Mass/Vol] 32.4 g/dL 32-36 [facility] Mean platelet volume determi nationOrdered By: Andrea Moreno on 06-11-2024 Platelet mean volume (Bld) [Entitic vol] 9.6 fL 6.2-12.0 [facility] Monocyte percentageOrdered B y: Andrea Moreno on 06-11-2024 Monocytes/100 WBC (Bld) 12.7 % High 0-10 [facility] Neutrophil percentageOrdered By: Andrea Moreno on 06-11-2024 Neutrophils/100 WBC (Bld) 48.1 % 47-70 [facility] Nucleated red blood cell per centageOrdered By: Andrea Moreno on 06-11-2024 Nucleated RBC/100 WBC (Bld) [Ratio] 0 % 0-5 [facility] Platelet countOrdered By: Jagruti Moreno on 06-11-2024 Platelets (Bld) [#/Vol] 261 10*3/uL 150-450 [facility] Potassium (Unsp spec) [Mass/ Vol]Ordered By: Andrea Moreno on 06-11-2024 Potassium [Moles/Vol] 4.4 mmol/L 3.3-5.1 [facility] Potassium measurement (mass/ volume)Ordered By: Andrea Moreno on 06-11-2024 Potassium (Unsp spec) [Mass/Vol] 4.4 mmol/L 3.3-5.1 [facility] RBC Auto (Bld) [#/Vol]Ordere d By: Andrea Moreno on 06-11-2024 RBC (Bld) [#/Vol] 4.68 10*6/uL 4.2-5.4 [facility] Screening total cholesterol/ high density lipoprotein (HDL) cholesterol ratioOrdered By: Andrea Moreno on 06-11-2024 Cholesterol.total/Cho lesterol in HDL [Mass ratio] 2.84 {ratio} [facility] Serum creatinine measurement (mass/volume)Ordered By: Andrea Moreno on 06-11-2024 Creatinine [Mass/Vol] 0.67 mg/dL Low 0.70-1.20 [facility] Serum globulin measurementOr dered By: Andrea Moreno on 06-11-2024 Globulin (S) [Mass/Vol] 3.4 g/dL 2.2-4.2 [facility] Serum glucose measurement (m ass/volume)Ordered By: Andrea Moreno on 06-11-2024 Glucose [Mass/Vol] 93 mg/dL 70-99 [facility] Serum or plasma alanine oakley otransferase (ALT) measurementOrdered By: Andrea Moreno on 06-11-2024 ALT [Catalytic activity/Vol] 20 U/L <35 [facility] Serum or plasma albumin ignny urement (mass/volume)Ordered By: Andrea Moreno on 06-11-2024 Albumin [Mass/Vol] 3.8 g/dL 3.4-4.8 [facility] Serum or plasma albumin/glob ulin mass ratioOrdered By: Andrea Moreno on 06-11-2024 Albumin/Globulin [Mass ratio] 1.1 {ratio} 0.9-2.4 [facility] Serum or plasma alkaline teddy sphatase measurementOrdered By: Andrea Moreno on 06-11-2024 ALP [Catalytic activity/Vol] 45 U/L 35-104 [facility] Serum or plasma calcium ginny urement (mass/volume)Ordered By: Andrea Moreno on 06-11-2024 Calcium [Mass/Vol] 10.0 mg/dL 7.6-11.0 [facility] Serum or plasma cholesterol in HDL measurement (mass/volume)Ordered By: Andrea Moreno on 06-11-2024 Cholesterol in HDL [Mass/Vol] 92 mg/dL >40 [facility] Comment on above: National Cholesterol Education Program (NCEP) guidelines:<40 mg/dL: Low HDL-cholesterol (major risk factor for CHD)>= 60 mg/dL: High HDL-cholesterol (negative risk factor for CHD)HDL-cholesterol is affected by a number of factors, e.g. smoking, exercise, hormones, sex and age. Serum or plasma cholesterol measurement (mass/volume)Ordered By: Andrea Moreno on 06-11-2024 Cholesterol [Mass/Vol] 261 mg/dL High <201 [facility] Comment on above: Cholesterol level, D esirable <200 mg/dLBorderline high cholesterol 200-239 mg/dLHigh cholesterol >=240 mg/dLRecommendations of the NCEP Adult Treatment Panel for the following risk-cutoff thresholds for the [place] population. Serum or plasma urea nitroge n measurement (mass/volume)Ordered By: Andrea Moreno on 06-11-2024 Urea nitrogen [Mass/Vol] 14 mg/dL 4-19 [facility] Sodium levelOrdered By: Adriane Moreno on 06-11-2024 Sodium [Moles/Vol] 143 mmol/L 133-145 [facility] TSH DL <= 0.005 mIU/L QnOrde red By: Andrea Moreno on 06-11-2024 Thyroid Stimulating Hormone (TSH) 2.020 uIU/mL 0.300-4.20 0 [facility] TSH Qn 2.020 uIU/mL 0.300-4.20 0 [facility] Thyroid Stim Hormone (TSH)on 06-11-2024 TSH 2.020 uIU/mL Normal 0.300-4.20 0 [facility] Comment on above: Performed By: #### L 100.0100, L500.4100, L500.4050, L506.1001, L501.9520 #### [facility] [address] [place], [address] Total proteinOrdered By: Belia Moreno on 06-11-2024 Protein [Mass/Vol] 7.3 g/dL 5.9-8.4 [facility] Triglycerides measurementOrd ered By: Andrea Moreno on 06-11-2024 Triglyceride [Mass/Vol] 57 mg/dL <199 [facility] Comment on above: The drugs N-Acetylcy steine and Metamizole may falsely depress this assay. Normal range: <150 mg/dLBorderline High: 150-199 mg/dLHigh: 200-499 mg/dLVery High: >500 mg/dL Vitamin D, 25-hydroxyOrdered By: Andrea Moreno on 06-11-2024 Vitamin D 25-Hydroxy 38.2 ng/mL 30-100 [facility] Comment on above: Vitamin D StatusDefi ciency: <20 ng/mL (50nmol/L)Insufficiency: 20-30 ng/mL (50-75 nmol/L)Sufficiency: 30-100 ng/mL (75-250 nmol/L)Toxicity: >100 ng/mL (>250 nmol/L) Vitamin D,25 Hydroxyon 06-11 Vitamin D 25-OH 38.2 ng/mL Normal 30-100 [facility] Comment on above: Result Comment: Nupur min D Status Deficiency: <20 ng/mL (50nmol/L) Insufficiency: 20-30 ng/mL (50-75 nmol/L) Sufficiency: 30-100 ng/mL (75-250 nmol/L) Toxicity: >100 ng/mL (>250 nmol/L) Performed By: #### L 100.0100, L500.4100, L500.4050, L506.1001, L501.9520 #### [facility] [address] [place], [address] White blood cell (WBC) count Ordered By: Andrea Moreno on 04-11-2025 WBC (Bld) [#/Vol] 3.9 10*3/uL Low 4[facility]4-11.0 [facility] ) ONDINA DE LA FUENTE ([id number]) 1945 F Date Time Provider Department 01/23/24 8:45 AM ANUSHKA SHINE PULMWS During your visit today, we recorded the following information about you: Anushka Shine MD 01/23/2024 11:14 AM Signed . [facility] [place] Note Patient name: Ondina De La Fuente PCP: Ck Joyce MD CC: cough HPI: Ondina De La Fuente 78 year old female non-smoker for hypothyroidism, nasal polyposis and chronic cough. At initial visit, PFTs showed small airways obstruction and normal Kike. She was started on therapy for silent GERD and ICS with plans for definitive LESLEY if no response to therapy. Her cough resolved after the first week of treatment. She presents today for follow-up. She stopped using both her proton pump inhibitor and her inhaled corticosteroid approximately 10 days ago. She feels encouraged by the lack of recurrence of her cough explained to her that is too early to tell. She denies any other respiratory symptoms, specifically, shortness of breath, wheezing or chest tightness. No other new medical issues since her last office visit. PAST MEDICAL HISTORY Diagnosis Date Bursitis, hip Cough variant asthma GERD (gastroesophageal reflux disease) HLD (hyperlipidemia) Hypothyroidism Kidney stone Nasal polyps ALLERGIES No Known Allergies LIPITOR 20 mg tablet Take 20 mg by mouth once daily. fluticasone (FLONASE ALLERGY RELIEF) 50 mcg/actuation nasal spray Use 2 Sprays in each nostril once daily. levothyroxine (SYNTHROID) 88 mcg tablet Take 88 mcg by mouth once daily. vit A/vit C/vit E/zinc/copper (OCUVITE PRESERVISION ORAL) Take 1 tablet by mouth once daily. fluticasone furoate (ARNUITY ELLIPTA) 100 mcg/actuation inhaler Inhale 1 Puff as instructed once daily. (Patient not taking: Reported on 01/23/2024) pantoprazole DR (PROTONIX) 40 mg tablet Take 1 tablet by mouth once daily. Take in the evening. Do not take with Synthroid (Patient not taking: Reported on 01/23/2024) Social History Tobacco Use Smoking status: Never Passive exposure: Past Smokeless tobacco: Never Tobacco comments: smoked for 25 years FAMILY HISTORY Problem Relation Age of Onset Pancreatic Cancer Mother No Known Problems Father 98 y/o other (Cirrhosis of liver) Brother PAST SURGICAL HISTORY Procedure Laterality Date SINUS SURGERY HX x 3 last 2017 PMH, Social history, family history and surgical history reviewed and updated in EMR REVIEW OF SYSTEMS: CONSTITUTIONAL: No fevers, chills, nightsweats, unintended weight loss HEENT: Denies nasal congestion/sinus symptoms, postnasal drip. CARDIOVASCULAR: No chest pain, dyspnea, palpitations, edema. PULM: See HPI GI: No dysphagia/odynophagia, problematic reflux. PHYSICAL EXAMINATION: Weight 67.1 kg, BP 110/70, pulse 80, SpO2 97% on room air, respiratory rate 16 General Appearance: Age-appropriate female, NAD. Some throat clearing. Skin: Skin color, texture, turgor normal, no suspicious rashes or lesions. Head: Normocephalic, no masses, lesions, tenderness or abnormalities. Eyes: Sclera, conjunctiva normal. Oropharynx: No oral lesions, no thrush, no posterior pharyngeal cobblestoning. Neck: No JVD, no masses, no adenopathy. Lungs: Not labored, normal percussion, no wheezes or crackles. Heart: Regular rate and rhythm, no murmurs gallops. Extremities: No edema. Assessment/Plan: 1. Cough variant asthma -She will remain off medication. If she has recrudescence of her cough she was instructed to restart the inhaled corticosteroid first. If she has persistent cough after starting her inhaled therapy then she will need to restart her proton pump inhibitor. She was instructed to contact the office if she has recrudescence of her symptoms -RTC 6 months or sooner with problems Anushka Shine MD [facility] [place] Anushka Shine MD 01/23/2024 9:20 AM Signed If cough recurs then start inhaled corticosteroid first and if cough persists after restarting inhaler then restart stomach medication Allergies As of Date: 01/23/2024 (No Known Allergies) Date Reviewed: 01/23/2024 Reviewed by: Anushka Shine MD - Fully Assessed Reason for Visit: Established Patient [175] Cmt: 3 month follow up cough Cough [28] Primary Visit Diagnosis:Cough variant asthma [J45.991] Prescriptions as of 01/23/2024 - LIPITOR 20 mg tablet Take 20 mg by mouth once daily. - fluticasone (FLONASE ALLERGY RELIEF) 50 mcg/actuation nasal spray Use 2 Sprays in each nostril once daily. - levothyroxine (SYNTHROID) 88 mcg tablet Take 88 mcg by mouth once daily. - vit A/vit C/vit E/zinc/copper (OCUVITE PRESERVISION ORAL) Take 1 tablet by mouth once daily. - fluticasone furoate (ARNUITY ELLIPTA) 100 mcg/actuation inhaler Inhale 1 Puff as instructed once daily. - pantoprazole (more content not included)... Normal [facility] CBC W/Diff, Automatedon 10-0 Absolute Lymph 0.71 X10 3/uL Low 0.83-4.51 [facility] Comment on above: Performed By: #### L 100.0100, L501.9520, L500.4100, L500.4050 #### [facility] [address] [place], [address] Absolute Neut 2.7 X10 3/uL Normal 2.0-7.7 [facility] Comment on above: Performed By: #### L 100.0100, L501.9520, L500.4100, L500.4050 #### [facility] [address] [place], [address] Basophils/100 WBC (Bld) 0.9 % Normal 0-1 [facility] Comment on above: Performed By: #### L 100.0100, L501.9520, L500.4100, L500.4050 #### [facility] [address] [place], [address] Eosinophils/100 WBC (Bld) 6.8 % High 0-5 [facility] Comment on above: Performed By: #### L 100.0100, L501.9520, L500.4100, L500.4050 #### [facility] [address] [place], [address] Erythrocyte distribution width (RBC) [Ratio] 12.4 % Normal 11.6-14.6 [facility] Comment on above: Performed By: #### L 100.0100, L501.9520, L500.4100, L500.4050 #### [facility] [address] [place], [address] Hematocrit (Bld) [Volume fraction] 45.6 % Normal 37-47 [facility] Comment on above: Performed By: #### L 100.0100, L501.9520, L500.4100, L500.4050 #### [facility] [address] [place], [address] Hemoglobin (Bld) [Mass/Vol] 14.6 g/dL Normal 12.0-15.0 [facility] Comment on above: Performed By: #### L 100.0100, [id number], L500.4100, L500.4050 #### [facility] [address] [place], [address] IG% 0.200 Normal 0.0-0.9 [facility] Comment on above: Result Comment: IG% - Immature Granulocytes (promyelocytes, myelocytes and metamyelocytes) > 1% indicates that a LEFT SHIFT is Present. Performed By: #### L 100.0100, L501.9520, L500.4100, L500.4050 #### [facility] [address] [place], [address] Lymphocytes/100 WBC (Bld) 16.6 % Low 19-41 [facility] Comment on above: Performed By: #### L 100.0100, [id number], L500.4100, L500.4050 #### [facility] [address] [place], [address] MCH (RBC) [Entitic mass] 30.0 pg Normal 27.0-32.0 [facility] Comment on above: Performed By: #### L 100.0100, L501.9520, L500.4100, L500.4050 #### [facility] [address] [place], [address] MCHC (RBC) [Mass/Vol] 32.0 g/dL Normal 32-36 [facility] Comment on above: Performed By: #### L 100.0100, [id number], L500.4100, L500.4050 #### [facility] [address] [place], [address] MCV (RBC) [Entitic vol] 93.8 fL Normal 81-99 [facility] Comment on above: Performed By: #### L 100.0100, [id number], L500.4100, L500.4050 #### [facility] [address] [place], [address] Monocytes/100 WBC (Bld) 11.9 % High 0-10 [facility] [facility] Comment on above: Performed By: #### L 100.0100, L501.9520, L500.4100, L500.4050 #### [facility] [address] [place], [address] Neutrophils/100 WBC (Bld) 63.6 % Normal 47-70 [facility] Comment on above: Performed By: #### L 100.0100, L501.9520, L500.4100, L500.4050 #### [facility] [address] [place], [address] Nucleated RBC (Bld) [#/Vol] 0 10*3/uL Normal 0-5 [facility] Comment on above: Performed By: #### L 100.0100, L501.9520, L500.4100, L500.4050 #### [facility] [address] [place], [address] Platelet mean volume (Bld) [Entitic vol] 9.4 fL Normal 6.2-12.0 [facility] Comment on above: Performed By: #### L 100.0100, L501.9520, L500.4100, L500.4050 #### [facility] [address] [place], [address] Platelets (Bld) [#/Vol] 246 10*3/uL Normal 150-450 [facility] Comment on above: Performed By: #### L 100.0100, L501.9520, L500.4100, L500.4050 #### [facility] [address] [place], [address] RBC (Bld) [#/Vol] 4.86 10*6/uL Normal 4.2-5.4 [facility] Comment on above: Performed By: #### L 100.0100, L501.9520, L500.4100, L500.4050 #### [facility] [address] [place], [address] RDW SD 43.1 fl Normal 35.1-43.9 [facility] Comment on above: Performed By: #### L 100.0100, L501.9520, L500.4100, L500.4050 #### [facility] [address] [place], [address] WBC (Bld) [#/Vol] 4.3 10*3/uL Low 4.4-11.0 [facility] Comment on above: Performed By: #### L 100.0100, L501.9520, L500.4100, L500.4050 #### [facility] [address] [place], [address] Comprehensive Metabolic Prof ilon 12-02-2023 Albumin [Mass/Vol] 3.4 g/dL Normal 3.2-5.0 [facility] Comment on above: Performed By: #### L 100.0100, L501.9520, L500.4100, L500.4050 #### [facility] [address] [place], [address] Albumin/Globulin [Mass ratio] 0.8 {ratio} Low 0.9-2.4 [facility] Comment on above: Performed By: #### L 100.0100, L501.9520, L500.4100, L500.4050 #### [facility] [address] [place], [address] ALK P 41 U/L Low 45-117 [facility] Comment on above: Performed By: #### L 100.0100, L501.9520, L500.4100, L500.4050 #### [facility] [address] [place], [address] ALT [Catalytic activity/Vol] 25 U/L Normal 13-56 [facility] Comment on above: Performed By: #### L 100.0100, L501.9520, L500.4100, L500.4050 #### [facility] [address] [place], [address] AST [Catalytic activity/Vol] 20 U/L Normal 15-37 [facility] Comment on above: Performed By: #### L 100.0100, L501.9520, L500.4100, L500.4050 #### [facility] [address] [place], [address] Bilirubin [Mass/Vol] 0.50 mg/dL Normal 0.20-1.00 [facility] Comment on above: Result Comment: For patients on eltrombopag therapy, use of Dimension [place] TBIL is not recommended. Performed By: #### L 100.0100, L501.9520, L500.4100, L500.4050 #### [facility] [address] [place], [address] BUN/CRE 20.3 RATIO High 10-20 [facility] Comment on above: Performed By: #### L 100.0100, L501.9520, L500.4100, L500.4050 #### [facility] [address] [place], [address] CA,Total 9.9 mg/dL Normal 8.5-10.1 [facility] Comment on above: Performed By: #### L 100.0100, L501.9520, L500.4100, L500.4050 #### [facility] [address] [place], [address] Chloride [Moles/Vol] 105 mmol/L Normal 98-107 [facility] Comment on above: Performed By: #### L 100.0100, L501.9520, L500.4100, L500.4050 #### [facility] [address] [place], [address] CO2 [Moles/Vol] 31.0 mmol/L Normal 21.0-32.0 [facility] Comment on above: Performed By: #### L 100.0100, L501.9520, L500.4100, L500.4050 #### [facility] [address] [place], [address] Creatinine [Mass/Vol] 0.84 mg/dL Normal 0.55-1.02 [facility] Comment on above: Result Comment: The validity of the calculated GFR GFRAA in patients over 70 years has not been determined. Clinical correlation is essential. Performed By: #### L 100.0100, L501.9520, L500.4100, L500.4050 #### [facility] [address] [place], [address] EST GFR - AA 84 mL/min Normal >60 [facility] Comment on above: Result Comment: Afri can Uzbek GFR Calc Performed By: #### L 100.0100, L501.9520, L500.4100, L500.4050 #### [facility] [address] [place], [address] GAP 4 Low 5-15 [facility] Comment on above: Performed By: #### L 100.0100, L501.9520, L500.4100, L500.4050 #### [facility] [address] [place], [address] GFR/1.73 sq M.predicted among non-blacks MDRD (S/P/Bld) [Vol rate/Area] 70 mL/min/{1.73_m2} Normal >60 [facility] Comment on above: Result Comment: Non- GFR Calc Performed By: #### L 100.0100, L501.9520, L500.4100, L500.4050 #### [facility] [address] [place], [address] Globulin (S) [Mass/Vol] 4.4 g/dL High 2.2-4.2 [facility] Comment on above: Performed By: #### L 100.0100, L501.9520, L500.4100, L500.4050 #### [facility] [address] [place], [address] Glucose [Mass/Vol] 102 mg/dL Normal 74-106 [facility] Comment on above: Result Comment: Fast ing Glucose result from 100 to 125 mg/dL suggests IMPAIRED HOMEOSTASIS per A.D.A. criteria. Performed By: #### L 100.0100, L501.9520, L500.4100, L500.4050 #### [facility] [address] [place], [address] Potassium [Moles/Vol] 4.0 mmol/L Normal 3.5-5.1 [facility] Comment on above: Performed By: #### L 100.0100, L501.9520, L500.4100, L500.4050 #### [facility] [address] [place], [address] Sodium [Moles/Vol] 140 mmol/L Normal 136-145 [facility] Comment on above: Performed By: #### L 100.0100, L501.9520, L500.4100, L500.4050 #### [facility] [address] [place], [address] T PROT 7.8 g/dL Normal 6.4-8.2 [facility] Comment on above: Performed By: #### L 100.0100, L501.9520, L500.4100, L500.4050 #### [facility] [address] [place], [address] Urea nitrogen [Mass/Vol] 17 mg/dL Normal 7-18 [facility] Comment on above: Performed By: #### L 100.0100, L501.9520, L500.4100, L500.4050 #### [facility] [address] [place], [address] Lipid Profileon 12-02-2023 Cholesterol [Mass/Vol] 202 mg/dL High 200 [facility] Comment on above: Result Comment: <200 mg/dL Desirable 200-240 mg/dL Borderline >240 mg/dL High Risk Performed By: #### L 100.0100, L501.9520, L500.4100, L500.4050 #### [facility] [address] [place], [address] Cholesterol in HDL [Mass/Vol] 104 mg/dL Normal [facility] Comment on above: Result Comment: The drugs N-Acetylcysteine and Metamizole may falsely depress this assay. Reference Range HDL <40 mg/dL Low HDL Cholesterol HDL >or= 60 mg/dL High HDL Cholesterol Performed By: #### L 100.0100, L501.9520, L500.4100, L500.4050 #### [facility] [address] [place], [address] Cholesterol in LDL [Mass/Vol] 89 mg/dL Normal 0-130 [facility] Comment on above: Performed By: #### L 100.0100, L501.9520, L500.4100, L500.4050 #### [facility] [address] [place], [address] Cholesterol in VLDL [Mass/Vol] 9 mg/dL Normal 5-40 [facility] Comment on above: Performed By: #### L 100.0100, L501.9520, L500.4100, L500.4050 #### [facility] [address] [place], [address] Triglyceride [Mass/Vol] 46 mg/dL Normal [facility] Comment on above: Result Comment: The drugs N-Acetylcysteine and Metamizole may falsely depress this assay. Serum Triglycerides Reference Interval Normal <150 mg/dL Borderline high 150 - 199 mg/dL High 200 - 499 mg/dL Very High > or = 500 mg/dL Performed By: #### L 100.0100, L501.9520, L500.4100, L500.4050 #### [facility] [address] [place], [address] Thyroid Stim Hormone (TSH)on 12-02-2023 TSH 1.150 uIU/mL Normal 0.358-3.74 0 [facility] Comment on above: Performed By: #### L 100.0100, L501.9520, L500.4100, L500.4050 #### [facility] [place], [address] CNCOon 11-30-2023 CNCO Letter Text Normal [facility] CNOVon 10-23-2023 CNOV Office Visit (PULMWS ) ONDINA DE LA FUENTE ([id number]) 1945 F Date Time Provider Department 10/23/23 9:30 AM ANUSHKA SHINE PULMWS During your visit today, we recorded the following information about you: Anushka Shine MD 10/23/2023 10:10 AM Signed . [facility] [place] Note Patient name: Ondina De La Fuente PCP: Ck Joyce MD CC: Follow-up cough HPI: Ondina De La Fuente 78 year old female non-smoker with PMH significant for hypothyroidism, nasal polyposis with chronic sinus disease recently seen in pulmonary clinic for evaluation of chronic cough. She had no prior history of asthma and no prior treatment of her allergies. At initial visit, her pulmonary function test showed reversible small airways obstruction and normal exhaled nitric oxide level. She had symptoms to suggest possible silent reflux. She was started on inhaled corticosteroid and empiric Protonix. Plan for possible ENT evaluation and definitive methacholine challenge testing pending response to initial therapy. Today she states she has been doing well. Her cough resolved. Cough stopped after 1 week of therapy. No coughing at night. No wheezing or chest tightness or shortness of breath. Complaint today is of problems with memory. No focal side effects from her inhaled corticosteroid. ASTHMA CONTROL TEST Date: 10/23/2023 In the last 4 weeks, how much of the time did your asthma keep you from getting as much done at work or home that you wanted to do? None of the time (5) In the last 4 weeks, how often have you had shortness of breath? Not at all (5) In the last 4 weeks, how often did your asthma symptoms (wheezing, coughing, shortness of breath, chest tightness or pain) wake you up at night or earlier than usual? Once or twice (4) In the last 4 weeks, how often have you used your rescue inhaler or nebulizer medication (such as Albuterol, Proventil, Ventolin, Maxair, Xoponex, or Primatene Mist)? Not at all (5) In the last 4 weeks, how would you rate your asthma control? Completely controlled (5) Total: more than 20 PAST MEDICAL HISTORY No date: Bursitis, hip No date: Cough variant asthma No date: GERD (gastroesophageal reflux disease) No date: HLD (hyperlipidemia) No date: Hypothyroidism No date: Kidney stone No date: Nasal polyps ALLERGIES No Known Allergies LIPITOR 20 mg tablet Take 20 mg by mouth once daily. fluticasone (FLONASE ALLERGY RELIEF) 50 mcg/actuation nasal spray Use 2 Sprays in each nostril once daily. levothyroxine (SYNTHROID) 88 mcg tablet Take 88 mcg by mouth once daily. vit A/vit C/vit E/zinc/copper (OCUVITE PRESERVISION ORAL) Take 1 tablet by mouth once daily. fluticasone furoate (ARNUITY ELLIPTA) 100 mcg/actuation inhaler Inhale 1 Puff as instructed once daily. pantoprazole DR (PROTONIX) 40 mg tablet Take 1 tablet by mouth once daily. Take in the evening. Do not take with Synthroid Social History Tobacco Use Smoking status: Never Passive exposure: Past Smokeless tobacco: Never Tobacco comments: smoked for 25 years FAMILY HISTORY Problem Relation Age of Onset Pancreatic Cancer Mother No Known Problems Father 98 y/o other (Cirrhosis of liver) Brother PAST SURGICAL HISTORY No date: SINUS SURGERY HX Comment: x 3 last 2018 PMH, Social history, family history and surgical history reviewed and updated in EMR REVIEW OF SYSTEMS: CONSTITUTIONAL: No fevers, chills, nightsweats, unintended weight loss HEENT: Denies nasal congestion/sinus symptoms, allergy problems. CARDIOVASCULAR: No chest pain, dyspnea, palpitations, edema. PULM: See HPI GI: No dysphagia/odynophagia, problematic reflux PHYSICAL EXAMINATION: Weight 152 pounds, BP 120/68 RR 16, SpO2 98% on room air, pulse 62 General Appearance: Age-appropriate female, NAD. Oropharynx: No oral lesions or thrush or erythema. Lungs: Not labored, normal to percussion, no wheezes or crackles. Heart: Regular rate and rhythm, no murmurs or gallops. Extremities: No edema or clubbing. Assessment/Plan: 1. Cough asthma -Symptoms controlled with inhaled corticosteroid -She will continue on current inhaled therapy with reassessment in 3 months. If she is doing well we will trial discontinuation of ICS 2. GERD -Suggestive of silent reflux. Cough has resolved with empiric therapy -Continue current course 3. Nasal polyposis -Nonobstructing. Continue Flonase nasal spray Anushka Shine MD [facility] [place] Allergies As of Date: 10/23/2023 (No Known Allergies) Date Reviewed: 10/23/2023 Reviewed by: Anushka Shine MD - Fully Assessed Reason for Visit: Established Patient [175] Cmt: 6 week follow up Primary Visit Diagnosis:Cough variant asthma [J45.991] Other Visit Diagnoses:Gastroesophageal reflux disease, unspecified whether esophagitis present [K21.9] Nasal (more content not included)... Normal [facility] GRPon 09-09 A. alternata IgE Qn (S) <0.35 Normal <0.35 [facility] Comment on above: Order Comment: Rafael cain Type: BLOOD SPECIMEN Ordering Facility: [facility] Address: [address] [place] [address] Performed By: #### G RTLKS #### [facility] CLIA [id number] [address] [place] [address] [place] A. alternata IgE RAST class (S) Class 0 Normal Class 0 [facility] Comment on above: Order Comment: Specmisael cain Type: BLOOD SPECIMEN Ordering Facility: [facility] Address: [address] [place] [address] Performed By: #### G RTLKS #### [facility] CLIA [id number] [address] [place] [address] [place] house dust mite IgE Qn (S) <0.35 Normal <0.35 [facility] Comment on above: Order Comment: Speci men Type: BLOOD SPECIMEN Ordering Facility: [facility] Address: [address] [place] [address] Performed By: #### G RTLKS #### [facility] CLIA [id number] [address] [place] [address] [place] house dust mite IgE RAST class (S) Class 0 Normal Class 0 [facility] Comment on above: Order Comment: Speci men Type: BLOOD SPECIMEN Ordering Facility: [facility] Address: [address] [place] [address] Performed By: #### G RTLKS #### [facility] CLIA [id number] [address] [place] [address] [place] C. herbarum IgE Qn (S) <0.35 Normal <0.35 [facility] Comment on above: Order Comment: Speci men Type: BLOOD SPECIMEN Ordering Facility: [facility] Address: [address] [place] [address] Performed By: #### G RTLKS #### [facility] CLIA [id number] [address] [place] [address] [place] C. herbarum IgE RAST class (S) Class 0 Normal Class 0 [facility] Comment on above: Order Comment: Speci men Type: BLOOD SPECIMEN Ordering Facility: [facility] Address: [address] [place] [address] Performed By: #### G RTLKS #### [facility] CLIA [id number] [address] [place] [address] [place] Cat dander IgE Qn (S) <0.35 Normal <0.35 [place] Comment on above: Order Comment: Speci men Type: BLOOD SPECIMEN Ordering Facility: [facility] Address: [address] [place], [place] [id number] Performed By: #### G RTLKS #### [facility] CLIA [id number] [address] [place] [address] [place] Cat dander IgE RAST class (S) Class 0 Normal Class 0 [facility] Comment on above: Order Comment: Speci men Type: BLOOD SPECIMEN Ordering Facility: [facility] Address: [address] [place] [address] Performed By: #### G RTLKS #### [facility] CLIA [id number] [address] [place] [address] [place] Common Ragweed IgE Qn (S) <0.35 Normal <0.35 [facility] Comment on above: Order Comment: Speci men Type: BLOOD SPECIMEN Ordering Facility: [facility] Address: [address] [place] [address] Performed By: #### G RTLKS #### [facility] CLIA [id number] [address] [place] [address] [place] Common Ragweed IgE RAST class (S) Class 0 Normal Class 0 [facility] Comment on above: Order Comment: Speci men Type: BLOOD SPECIMEN Ordering Facility: [facility] Address: [address] [place] [address] Performed By: #### G RTLKS #### [facility] CLIA [id number] [address] [place] [address] [place] Dog dander IgE Qn (S) <0.35 Normal <0.35 [place] Comment on above: Order Comment: Speci men Type: BLOOD SPECIMEN Ordering Facility: [facility] Address: [address] [place], [place] [id number] Performed By: #### G RTLKS #### [facility] CLIA [id number] [address] [place] [address] [place] Dog dander IgE RAST class (S) Class 0 Normal Class 0 [facility] Comment on above: Order Comment: Speci men Type: BLOOD SPECIMEN Ordering Facility: [facility] Address: [address] [place], [place] [id number] Performed By: #### G RTLKS #### [facility] CLIA [id number] [address] [place] [address] [place] IgE Qn (S) <0.35 Normal <0.35 [facility] Comment on above: Order Comment: Speci men Type: BLOOD SPECIMEN Ordering Facility: [facility] Address: [address] [place] [address] Performed By: #### G RTLKS #### [facility] CLIA [id number] [address] [place] [address] [place] IgE RAST class (S) Class 0 Normal Class 0 [facility] Comment on above: Order Comment: Speci men Type: BLOOD SPECIMEN Ordering Facility: [facility] Address: [address] [place] [address] Performed By: #### G RTLKS #### [facility] CLIA [id number] [address] [place] [address] [place] blue grass IgE Qn (S) <0.35 Normal <0.35 [facility] Comment on above: Order Comment: Speci men Type: BLOOD SPECIMEN Ordering Facility: [facility] Address: [address] [place] [address] Performed By: #### G RTLKS #### [facility] CLIA [id number] [address] [place] [address] [place] blue grass IgE RAST class (S) Class 0 Normal Class 0 [facility] Comment on above: Order Comment: Speci men Type: BLOOD SPECIMEN Ordering Facility: [facility] Address: [address] [place] [address] Performed By: #### G RTLKS #### [facility] CLIA [id number] [address] [place] [address] [place] Tar[place] IgE Qn (S) <0.35 Normal <0.35 [facility] Comment on above: Order Comment: Speci men Type: BLOOD SPECIMEN Ordering Facility: [facility] Address: [address] [place] [address] Performed By: #### G RTLKS #### [facility] CLIA [id number] [address] [place] [address] [place] Tar[place] IgE RAST class (S) Class 0 Normal Class 0 [facility] Comment on above: Order Comment: Speci men Type: BLOOD SPECIMEN Ordering Facility: [facility] Address: [address] [place] [address] Performed By: #### G RTLKS #### [facility] CLIA [id number] [address] [place] [address] [place] IgE Qn (S) <0.35 Normal <0.35 [facility] Comment on above: Order Comment: Speci men Type: BLOOD SPECIMEN Ordering Facility: [facility] Address: [address] [place] [address] Performed By: #### G RTLKS #### [facility] CLIA [id number] [address] [place] [address] [place] IgE RAST class (S) Class 0 Normal Class 0 [facility] Comment on above: Order Comment: Speci men Type: BLOOD SPECIMEN Ordering Facility: [facility] Address: [address] [place] [address] Performed By: #### G RTLKS #### [facility] CLIA [id number] [address] [place] [address] [place] Eosinophils Auto (Bld) [#/Vo l]on 09-10-2023 Eosinophils (Bld) [#/Vol] 0.39 10*3/uL Normal <0.46 [facility] Comment on above: Order Comment: Speci men Type: BLOOD SPECIMEN Ordering Facility: [facility] Address: [address] [place] [address] Performed By: #### 7 11-2 #### [facility] CLIA [id number] [address] [place] [address] [place] IgE SerPl-aCncon 09-10-2023 IgE Qn 117.0 kU/l High <114.0 [facility] Comment on above: Order Comment: Speci men Type: BLOOD SPECIMEN Ordering Facility: [facility] Address: [address] [place] [address] Performed By: #### 1 9113-0 #### [facility] CLIA [id number] [address] [place] [address] [place] CNOVon 09-09-2023 CNOV Office Visit (PULMWS ) ONDINA DE LA FUENTE ([id number]) 1945 F Date Time Provider Department 09/09/23 1:30 PM ANUSHKA SHINE PULMWS During your visit today, we recorded the following information about you: Pulse Respiration Blood pressure Weight 92/minute 15/minute 122/74 67.6 kg Height 1.646 m Sarai Brunson LPN 09/09/2023 1:44 PM Signed Intake information documented in the prior visit with Respiratory Therapy today. Anushka Shine MD 09/09/2023 3:16 PM Signed . [facility] [place] Note Patient name: Ondina De La Fuente PCP: Ck Joyce MD Referring Physician: Same Consultation requested by Dr. Joyce for an opinion regarding cough. My final recommendations will be communicated back to the requesting physician by way of shared Medical record or letter to requesting physician via US mail. CC: cough HPI: Ondina De La Fuente 78 year old female non-smoker with PMH only significant for hypothyroidism, nasal polyposis, chronic sinus disease with a history of 3 sinus surgeries being seen for chronic cough. He denies any history of asthma or significant allergies. Previous allergy testing according to her showed slight allergic reaction to multiple allergens but she could not elucidate any further. She never required immunotherapy. She had been on Advair in the remote past, placed on therapy by an ENT physician. Her current heat history dates back to a year ago when she first noted moist cough without sputum production occurring in the evening when she first retired at bedtime. Cough did not interfere with her sleep. She denies any acid reflux symptoms. More recently her cough can occur during the daytime but has interfered with her sleep. She has heard wheezing. She has mild dyspnea on exertion when climbing stairs or hurrying. No chest pain. She has persistent sinus disease despite use of antihistamine and nasal steroids. She denies sensation of postnasal drip. She denies headaches. She had COVID in March of this last year with symptoms of headache and sore throat but no respiratory issues at that time. She is questioning whether she may have long-haul COVID. DATA: SERVICE DATE: 09/09/2023 SERVICE TIME: 9:46 AM Oral Exhaled Nitric Oxide measurement: 21.0 (ppb) PFT 09/09/2023: Review pulmonary function test shows minimal mid flow obstruction that markedly improves postbronchodilator Labs: No recent pertinent laboratory testing Imaging / Diagnostic Studies: Review of chest CT shows mild scoliosis and no significant lung parenchymal abnormalities Outside MRI 11/2022: Review MRI shows significant sinus disease PAST MEDICAL HISTORY Diagnosis Date Bursitis, hip Hypothyroidism Kidney stone Nasal polyps ALLERGIES No Known Allergies LIPITOR 20 mg tablet Take 20 mg by mouth once daily. fluticasone (FLONASE ALLERGY RELIEF) 50 mcg/actuation nasal spray Use 2 Sprays in each nostril once daily. levothyroxine (SYNTHROID) 88 mcg tablet Take 88 mcg by mouth once daily. vit A/vit C/vit E/zinc/copper (OCUVITE PRESERVISION ORAL) Take 1 tablet by mouth once daily. fluticasone furoate (ARNUITY ELLIPTA) 100 mcg/actuation inhaler Inhale 1 Puff as instructed once daily. pantoprazole DR (PROTONIX) 40 mg tablet Take 1 tablet by mouth once daily. Take in the evening. 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 EYES: No diplopia or blurry vision. CARDIOVASCULAR: No chest pain, palpitations, orthopnea, PND, edema. PULM: See HPI GI: No dysphagia/odynophagia, problematic reflux : No urinary complaints, including dysuria, gross hematuria or pyuria. NEURO: No new balance problems, peripheral weakness/paresthesias or numbness of concern. MUSC-SKEL: No joint pain, swelling, or erythema. PSY: No concerns regarding depression, anxiety INTEGUMENTARY: No new skin changes,, rashes, eczema PHYSICAL EXAMINATION: BP 122/74 Pulse 92 Resp 15 Ht 5' 4.8" (1.65m) Wt 149 lb (67.6kg) SpO2 94% BMI 24.95 kg/(m2). General Appearance: Elderly female, NAD. Skin: Skin color, texture, turgor normal, no suspicious rashes or lesions. Head: Normocephalic, no masses, lesions, tenderness or abnormalities. Nose: Nasal co (more content not included)... Normal [facility] NITRIC OXIDE, EXHALEDon 07-0 Mervin Orona, BOX HINGE AND LOCK ATTACHER 09/09/2023 9:46 AM RESPIRATORY THERAPY ORAL EXHALED NITRIC OXIDE SERVICE DATE: 09/09/2023 SERVICE TIME: 9:46 AM Oral Exhaled Nitric Oxide measurement: 21.0 (ppb) Normal: Adult <25 ppb, pediatric (<12 years) <20 ppb High Normal / Increased: Adult 25-50 ppb, pediatric (<12 years) 20-35 ppb Moderately raised exhaled Nitric Oxide may indicate underlying inflammation, but note that: Cold and influenza can raise exhaled Nitric Oxide and some patients have higher baseline exhaled Nitric Oxide levels than others. High: Adult >50 ppb, pediatric (<12 years) >35 ppb Indicative of ongoing eosinophilic inflammation. Symptomatic patient likely to respond to steroids. Possible causes (if already on steroids): Poor compliance, recent allergen exposure, steroid dose inadequate, and steroid resistance. Note that not all patients with high exhaled nitric oxide levels display symptoms. Oral Exhaled Nitric Oxide measurement (Previous Encounters) Test Date Oral Exhaled Nitric Oxide (ppb) 09/09/2023 21.0 NAME: Mervin Orona RRT PATIENT NAME: Ondina De La Fuente DATE: September 09, 2023 TIME: 9:46 AM [facility] SPIROMETRY - BASELINE AND PO ST DILATORon 09-09-2023 UPD58-10% POST (L/S) 1.90 L[facility]-17% PRE (L/S) 1.26 L/S [facility] FEV1 PRE (L) 1.92 L [facility] FEV1/FVC POST (%) 77 % [facility] FEV1/FVC PRE (%) 72 % [facility] FEV1_POST (L) 2.12 L [facility] FVC POST (L) 2.77 L [facility] FVC PRE (L) 2.69 L [facility] PEF POST (L/S) 5.58 L/S [facility] PEF PRE (L/S) 5.10 L/S [facility] [address] [place] [address] Test Date: 2023-09-09 Pat Name: ONDINA DE LA FUENTE Department: Room: Gender: 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 Start of test and EOFE criteria met. Medications and Allergies were reviewed for possible drug interactions per policy. No contraindications or sensitivities were noted. No meds taken before testing. 2 puffs Albuterol (180 mcg) delivered by MDI via holding chamber. HR pre=69/min, HR post=70/min. //ES IMPRESSION: Spirometry is normal. The increase in FEF 25-75 post-bronchodilator reflects an improvement in the small airway obstruction. Electronically Signed On 09-09-2023 11:59:17 EDT by Anushka Shine MD ID: [id number] Name: ONDINA DE LA FUENTE Race: White Ht: 64.80 in Wt: 149.00 lbs Age: 78 Gender: Female : 1945 Dx: Cough, unspecified_ Smoking Hx: Non-smoker Doctor: [facility] AYALA Test Date: 09/09/2023 Site: Tech: Mervin Orona PRE-BRONCH POST-BRONCH Pre LLN Pred ULN %Pred Post %Pred %Chg SPIROMETRY FVC (L) 2.69 1.83 2.65 3.50 101 2.77 104 2 FEV1 (L) 1.92 1.37 2.01 2.62 95 2.12 105 9 FEV1/FVC 0.72 0.64 0.78 0.89 92 0.77 98 7 PEF L/s (L/sec) 5.10 3.22 4.97 6.72 102 5.58 112 9 FEF50 (L/sec) 1.86 1.33 2.94 4.55 63 2.31 78 24 FIF50 (L/sec) 2.66 2.85 7 FEF50/FIF50 0.70 90-100 0.80 14 FIVC (L) 2.57 2.64 2 DMV08-84 (L/sec) 1.26 0.67 1.60 2.99 78 1.90 118 50 Time (sec) 9.50 6.91 -27 FET PEF (sec) 0.09 0.09 -2 ANA (L) 0.10 0.13 35 Vol Extrap % (%) 4 5 32 Comments: PRE/POST BD: Current ATS/ERS acceptability and repeatability standards for spirometry met. Start of test and EOFE criteria met. Medications and Allergies were reviewed for possible drug interactions per policy. No contraindications or sensitivities were noted. No meds taken before testing. 2 puffs Albuterol (180 mcg) delivered by MDI via holding chamber. HR pre=69/min, HR post=70/min. //ES PULMONARY FUNCTION LAB [facility] XR CHEST 2V FRONTAL/LATon XR CHEST 2V FRONTAL/LAT * * *Final Report* * * DATE OF EXAM: Sep 09 2023 9:26AM [id number] [id number] - XR CHEST 2V FRONTAL/LAT / PROCEDURE REASON: Cough, unspecified type * * * * Physician Interpretation * * * * EXAMINATION: CHEST RADIOGRAPH (2 VIEW FRONTAL and LATERAL) CLINICAL HISTORY: Cough, unspecified type MQ: [id number] EXAM DATE/TIME: 09/09/2023 9:26 AM COMPARISON: No relevant prior studies available. RESULT: Lines, tubes, and devices: None. Lungs and pleura: No consolidation. No lung mass. No pleural effusion. No pneumothorax. Cardiomediastinal silhouette: Normal cardiomediastinal silhouette. Bones and soft tissues: Unremarkable. IMPRESSION: No acute radiographic abnormality. Passenger Interline Clerk: PSCBeni Transcribe Date/Time: Sep 10 2023 4:48P Dictated by : RHONDA RODRIGUEZ MD This examination was interpreted and the report reviewed and electronically signed by: RHONDA RODRIGUEZ MD on Sep 10 2023 4:50PM EST [id number] Normal [facility] Absolute lymphocyte countOrd ered By: Shanell De Leonshady on 11-11-2022 Lymphocytes Auto (Unsp spec) [#/Vol] 0.59 10*3/uL 0.83-4.51 [facility] Basophil percentageOrdered B y: Shanell Rodgers on 11-11-2022 Basophils/100 WBC (Bld) 0.3 % 0-1 [facility] Chloride [Moles/Vol] 107 mmol/L 98-107 [facility] Eosinophils/100 WBC (Bld) 10.4 % 0-5 [facility] Glucose [Mass/Vol] 115 mg/dL 74-106 [facility] Comment on above: Fasting Glucose resu lt from 100 to 125 mg/dL suggests IMPAIRED HOMEOSTASIS per A.D.A. criteria. Neutrophils (Bld) [#/Vol] 1.6 10*3/uL 2.0-7.7 [facility] Neutrophils/100 WBC (Bld) 52.9 % 47-70 [facility] Potassium [Moles/Vol] 3.9 mmol/L 3.5-5.1 [facility] Sodium [Moles/Vol] 140 mmol/L 136-145 [facility] WBC (Bld) [#/Vol] 3.1 10*3/uL 4.4-11.0 [facility] Blood erythrocytes count (nu mber/volume)Ordered By: Shanell Rodgers on 11-11-2022 RBC (Bld) [#/Vol] 4.73 10*6/uL 4.2-5.4 [facility] Blood hemoglobin measurement (mass/volume)Ordered By: Shanell Rodgers on 11-11-2022 Hemoglobin (Bld) [Mass/Vol] 14.2 g/dL 12.0-15.0 [facility] Blood lymphocytes/100 leukoc ytesOrdered By: Shanell Rodgers on 11-11-2022 Lymphocytes/100 WBC (Bld) 19.2 % 19-41 [facility] Blood manual differential co mment interpretation (narrative result)Ordered By: Shanell Rodgers on 11-11-2022 Manual differential comment Kush (Bld) [Interp] SCANNED [facility] Blood monocytes/100 leukocyt esOrdered By: Shanell Rodgers on 11-11-2022 Monocytes/100 WBC (Bld) 16.9 % 0-10 [facility] Blood platelet mean volumeOr dered By: Shanell Rodgers on 11-11-2022 Platelet mean volume (Bld) [Entitic vol] 9.6 fL 6.2-12.0 [facility] Determination of erythrocyte mean corpuscular volume (MCV)Ordered By: Shanell Rodgers on 11-11-2022 MCV (RBC) [Entitic vol] 95.6 fL 81-99 [facility] Hematocrit Auto (Bld) [Volum e fraction]Ordered By: Shanell Rodgers on 11-11-2022 Hematocrit (Bld) [Volume fraction] 45.2 % 37-47 [facility] Laboratory - Chemistry and C hemistry - challengeOrdered By: Shanell Rodgers on 11-11-2022 CO2 [Moles/Vol] 30.0 mmol/L 21.0-32.0 [facility] Urea nitrogen/Creatinine [Mass ratio] 20.9 mg/mg 10-20 [facility] Laboratory - Hematology and Cell countsOrdered By: Shanell Rodgers on 11-11-2022 Erythrocyte distribution width (RBC) [Entitic vol] 44.2 fL 35.1-43.9 [facility] Erythrocyte distribution width (RBC) [Ratio] 12.5 % 11.6-14.6 [facility] Immature granulocytes/100 WBC (Bld) 0.300 % 0.0-0.9 [facility] Comment on above: IG% - Immature Granu locytes (promyelocytes, myelocytes and metamyelocytes) > 1% indicates that a LEFT SHIFT is Present. MCH (RBC) [Entitic mass] 30.0 pg 27.0-32.0 [facility] Nucleated RBC/100 WBC (Bld) [Ratio] 0 % 0-5 [facility] MCHC Auto (RBC) [Mass/Vol]Or dered By: Shanell Rodgers on 11-11-2022 MCHC (RBC) [Mass/Vol] 31.4 g/dL 32-36 [facility] No Panel InformationOrdered By: Shanell Rodgers on 11-11-2022 Estimated Creatinine Clearance Calc 45.09 ml/min [facility] Estimated GFR (MDRD) Amer 94 mL/min >60 [facility] Comment on above: GFR Calc Estimated GFR (MDRD) Non-Af Amer 78 mL/min >60 [facility] Comment on above: Non- GFR Calc Troponin I High Sensitivity 4 pg/mL 3.0-54.0 [facility] Comment on above: Please Note: New Trinity t Units and Gender Specific Reference Ranges. For more information see Policy Stat Procedure [place] High Sensitivity Troponin (TNIH) and attachments. Platelets bldOrdered By: Esthela Rodgers on 11-11-2022 Platelets (Bld) [#/Vol] 215 10*3/uL 150-450 [facility] Review by pathologistOrdered By: Shanell Rodgers on 11-11-2022 Pathologist review Kush (Unsp spec) [Interp] May foll [facility] Serum or plasma calcium ginny urement (mass/volume)Ordered By: Shanell Rodgers on 11-11-2022 Calcium [Mass/Vol] 9.2 mg/dL 8.5-10.1 [facility] Serum or plasma creatinine m easurement (mass/volume)Ordered By: Shanell Rodgers on 11-11-2022 Creatinine [Mass/Vol] 0.76 mg/dL 0.55-1.02 [facility] Comment on above: The validity of the calculated GFR & GFRAA in patients over 70 years has not been determined. Clinical correlation is essential. Serum or plasma urea nitroge n measurement (mass/volume)Ordered By: Shanell Rodgers on 11-11-2022 Urea nitrogen [Mass/Vol] 16 mg/dL 7-18 [facility] Thin prep Papanicolaou smear with manual screeningOrdered By: Shanell Rodgers on 11-11-2022 Thin prep Papanicolaou smear with manual screening 3 5-15 [facility] JERMAINE SCREENING W TOMOon 03-22 [facility] ANKLE COMP MIN 3 VWS RTon ANKLE COMP MIN 3 VWS RT ANKLE COMP MIN 3 VWS RT Ordering Physician: Dena Sims MD RIGHT ANKLE 3 VIEWS Clinical Statement: Pain status post injury FINDINGS: An essentially nondisplaced avulsion fracture at the distal fibula. There is associated soft tissue swelling. No additional fractures are seen. Ankle mortise is normal. IMPRESSION: Essentially nondisplaced avulsion fracture distal fibula This report was electronically signed by Corine Tellez MD 07/09/2021 6:59 AM Reported By: CORINE TELLEZ M.D. Signed By: CORINE TELLEZ M.D. [facility] 07-08-2021 [facility] REPORT [facility] DATE OF SERVICE: 10/2021 REASON FOR VISIT: Right ankle injury. HISTORY OF PRESENT ILLNESS: This is a 76-year-old female who presented with right ankle injury when she slid and fell down the steps yesterday. She has pain and swelling in the right ankle. No other injury. REVIEW OF SYSTEMS: Review of other systems normal. ALLERGIES: NKA. MEDICATIONS: Reviewed. PHYSICAL EXAMINATION: She is awake, alert, not in distress. No dyspnea. Temperature 99.0, blood pressure 152/80, pulse 80, respirations 16, pulse oximetry 99% on room air. Pain score 2/10. Examination of the right ankle revealed diffuse swelling and tenderness over the lateral malleolus. Weightbearing is painful. Motion is maintained but slightly painful. Neurovascular status was normal. The rest of exam was normal. TESTS: X-ray of the right ankle shows a fracture of the tip of the right fibula. ASSESSMENT: Fractured tip of right fibula. [facility] PATIENT NAME: ONDINA DE LA FUENTE [address] [place] MEDICAL REC #: [id number] [place] [address] [facility] REPORT [facility]CARE PHYSICIAN PLAN: Clinical findings were discussed with the patient and her in detail. I supported her ankle with a walking boot. She can continue to use the crutches. Rest, elevate, and ice. Ibuprofen as needed. She need to see orthopedics for further evaluation and care. Her stated that they go to [facility], and he will try calling [facility] tomorrow and get an appointment. Dena Sims MD [id number] [facility] File#: [id number] END OF DOCUMENT / CHANGE LOG FOLLOWS Last Edited By Elec. Signed By Dena Sims MD #PAWPR Dena Sims MD #PAWPR on 07/11/2021 10:09 ET on 07/11/2021 10:09 ET Revision Number - 2 Verified/Reviewed by 07/11/21 [id number] BOOMPR [facility] PATIENT NAME: ONDINA DE LAF UENTE [address] [place] MEDICAL REC #: [id number] [place] [address] [facility] REPORT STATCARE PHYSICIAN Normal [facility] SIMONE MAMMO SCREENINGon 01-10 SIMONE MAMMO SCREENING BILATERAL DIGITAL S CREENING MAMMOGRAM TOMOSYNTHESIS WITH CAD: 01/10/2021 Ordering Physician: Navin Bass M.D. CLINICAL: Screening. Comparison is made to exams dated: 03/22/2019 mammogram - [facility] and 03/09/2018 mammogram - [facility]. The tissue of both breasts is heterogeneously dense. This may lower the sensitivity of mammography. Digital Breast Tomosynthesis was performed. Current study was also evaluated with a Computer Aided Detection (CAD) system. There are benign vascular calcifications both breasts. There also are benign scattered calcifications both breasts. No significant masses, calcifications, or other findings are seen in either breast. There has been no significant interval change. IMPRESSION: BENIGN There is no mammographic evidence of malignancy. A 1 year screening mammogram is recommended. The false-negative rate of mammography is approximately 10%. Management of a palpable abnormality must be based upon clinical grounds. Ulysses Carlton M.D. tlv/penrad:01/10/2021 09:23:23 Assistant Purchasing Manager: Lisa Marks RT(R)(M), [facility] letter sent: Mammography Normal BI-RADS: 2 Benign Reported By: ULYSSES CARLTON M.D. Signed By: ULYSSES CARLTON M.D. Normal [facility] TSHon 01-01-2021 TSH 0.990 UIU/ML Normal 0.358-3.74 0 [facility] Comment on above: Result Comment: 3rd generation ultra sensitive TSH Performed By: #### L [phone] #### [facility] [address] [place] [address] Vital Signs Date Time Vital Sign Value Performing Clinician Miles henriquez 10-08-2024 11:55-0400 Body height 170.18 cm Andrea Moreno MD Work Phone: [facility] 10-08-2024 11:55-0400 Body mass index (BMI) [Ratio] 23.2 kg/m2 Andrea Moreno MD Work Phone: [facility] 10-08-2024 11:55-0400 Body temperature 98.2 [degF] Andrea Moreno MD Work Phone: [facility] 10-08-2024 11:55-0400 Body weight 67.35 kg Andrea Moreno MD Work Phone: [facility] 10-08-2024 11:55-0400 Diastolic blood pressure 76 mm[Hg] Andrea Moreno MD Work Phone: [facility] 10-08-2024 11:55-0400 Heart rate 72 /min Andrea Moreno MD Work Phone: [facility] 10-08-2024 11:55-0400 Respiratory rate 16 /min Andrea Moreno MD Work Phone: [facility] 10-08-2024 11:55-0400 SaO2% (BldA) [Mass fraction] 96 % Andrea Moreno MD Work Phone: [facility] 10-08-2024 11:55-0400 Systolic blood pressure 144 mm[Hg] Andrea Moreno MD Work Phone: [facility] 09-09-2023 13:22-0400 Body height 164.6 cm Anushka Shine MD Work Phone: [facility] 09-09-2023 13:22-0400 Body mass index (BMI) [Ratio] 24.95 kg/m2 Anushka Shine MD Work Phone: [facility] 09-09-2023 13:22-0400 Body weight 67.59 kg Anushka Shine MD Work Phone: [facility] 09-09-2023 13:22-0400 Diastolic blood pressure 74 mm[Hg] Anushka Shine MD Work Phone: [facility] 09-09-2023 13:22-0400 Heart rate 92 /min Anushka Shine MD Work Phone: [facility] 09-09-2023 13:22-0400 Respiratory rate 15 /min Anushka Shine MD Work Phone: [facility] 09-09-2023 13:22-0400 SaO2% (BldA) [Mass fraction] 94 % Anushka Shine MD Work Phone: [facility] 09-09-2023 13:22-0400 Systolic blood pressure 122 mm[Hg] Anushka Shine MD Work Phone: [facility] 11-11-2022 11:40-0400 Diastolic blood pressure 61 mm[Hg] [facility] 11-11-2022 11:40-0400 Heart rate 64 /min [facility] 11-11-2022 11:40-0400 Respiratory rate 13 /min [facility] 11-11-2022 11:40-0400 SaO2% (BldA) [Mass fraction] 95 % [facility] 11-11-2022 11:40-0400 Systolic blood pressure 127 mm[Hg] [facility] 11-11-2022 09:09-0400 Body height 170.18 cm [facility] 11-11-2022 09:09-0400 Body mass index (BMI) [Ratio] 22.8 kg/m2 [facility] 11-11-2022 09:09-0400 Body temperature 95.1 [degF] [facility] 11-11-2022 09:09-0400 Body weight 66.31 kg [facility] Encounters Encounter Date Encounter Type Care Provider Facility Start: 10-08-2024 End: 10-08-2024 Patient encounter procedure Rodney OSPINA -[facility] Work Phone: Start: 10-08-2024 End: 10-08-2024 ambulatory Andrea Moreno MD Work Phone: [facility] Start: 06-17-2024 End: 06-17-[address] Andrea Moreno MD -Outpatient Bone Densitometry Work Phone: Start: 06-17-2024 End: 06-17-2024 ambulatory Andrea Moreno Facility:[facility] Start: 06-11-2024 End: 06-11-2024 ambulatory Andrea Moreno MD Work Phone: [facility] Work Phone: Start: 06-11-2024 End: 06-11-[address] Andrea Moreno MD -Laboratory, [place] Work Phone: Start: 06-11-2024 End: 06-11-2024 ambulatory Andrea Moreno Facility:[facility] Start: 05-20-2024 Encounter for genera l adult medical examination without abnormal findings Ck Maria Del Carmen [facility] Start: 04-19-2024 End: 04-19-2024 Refill Anushka Shine MD Work Phone: Pulmonary Medicine Comment on above: Refill Request Start: 01-23-2024 End: 01-23-2024 ambulatory ANUSHKA SHINE Facility:[facility] Start: 01-23-2024 End: 01-23-2024 Patient encounter procedure Anushka Shine MD Work Phone: Pulmonary Medicine Comment on above: Cough variant asthma (Primary Dx) Start: 12-02-2023 ambulatory Ck Joyce Facility :[facility] Start: 10-23-2023 End: 10-23-2023 ambulatory ANUSHKA SHINE Facility:[facility] Start: 10-23-2023 End: 10-23-2023 Patient encounter procedure Anushka Shine MD Work Phone: [facility] Medicine Comment on above: Cough variant asthma (Primary Dx); Gastroesophageal reflux disease, unspecified whether esophagitis present; Nasal polyposis Start: 09-10-2023 End: 09-10-2023 ambulatory ANUSHKA SHINE Facility:[facility] Start: 09-09-2023 End: 09-09-2023 ambulatory CK JOYCE Facility:[facility] Start: 09-09-2023 End: 09-09-2023 Patient encounter procedure Anushka Shine MD Work Phone: Pulmonary Medicine Comment on above: Chronic cough (Prima ry Dx); Small airways disease; Chronic pansinusitis Start: 09-09-2023 End: 09-09-2023 Patient encounter procedure Pulm Lab [facility] Work Phone: PULM LAB [facility] Start: 09-09-2023 End: 09-09-2023 ambulatory Pulm Lab [facility] Work Phone: PULM LAB [facility] Comment on above: Spirometry Start: 09-09-2023 End: 09-09-2023 Subsequent hospital visit by physician Xr [facility] Work Phone: Radiology Comment on above: Cough, unspecified t ype [R05.9] Start: 01-14-2023 End: 01-14-2023 ambulatory [facility] Work Phone: Start: 01-14-2023 End: 01-14-2023 Discharged Recurring [facility]-Physical Therapy Work Phone: Start: 11-11-2022 End: 11-11-2022 Patient encounter procedure Lou Michel APRN.CNP Work Phone: [facility] Comment on above: Dizziness (Primary D x) Start: 11-11-2022 End: 11-11-2022 Emergency department patient visit [facility]-Emergency Department Work Phone: Start: 03-22-2022 End: 03-22-2022 Subsequent hospital visit by physician Screen/Diagnostic [facility] Comment on above: Encounter for screen ing mammogram for malignant neoplasm of breast [Z12.31] Start: 07-08-2021 End: 07-08-2021 Subsequent hospital visit by physician Dena Sims Work Phone: [facility] Comment on above: RT ANKLE INJURY FROM FALL Start: 12-21-2019 Patient encounter procedure Dena Sims MD Work Phone: [facility] Start: 12-21-2019 Progress Note Dena Sims MD Work Phone: [facility] Procedures Date Procedure Procedure Detail Performing Clinician Start: 06-17-2024 Dual energy X-ray absorptiometry Andrea Moreno MD Work Phone: Start: 06-11-2024 Vitamin D, 25-hydrox y measurement Andrea Moreno MD Work Phone: Comment on above: Vitamin D StatusDefi ciency: <20 ng/mL (50nmol/L)Insufficiency: 20-30 ng/mL (50-75 nmol/L)Sufficiency: 30-100 ng/mL (75-250 nmol/L)Toxicity: >100 ng/mL (>250 nmol/L) Start: 09-09-2023 Nitric oxide gas determination Ck Ayala MD Work Phone: Start: 09-09-2023 Brncdilat rspse spmt ry pre&post-brncdilat admn Ck Ayala MD Work Phone: Start: 11-11-2022 MRI of brain without contrast Start: 11-11-2022 CT of head without contrast Start: 03-22-2022 JERMAINE SCREENING W SIMONE Joyce MD Work Phone: Plan of Treatment Date Care Activity Detail Author Start: 08-09-2024 End: 08-09-2024 Patient encounter procedure 08/09/2024 10:00 AM EDT Office Visit Pulmonary Medicine [address] [place] [address] Anushka Shine MD [address] [place] [address] 6MO OV Pulmonary Medicine Comment on above: 6MO OV Start: 03-03-2024 Advance Directive Discussion Advance Directive Discussion [facility] Start: 01-23-2024 End: 01-23-2024 Patient encounter procedure 01/23/2024 8:45 AM EST Office Visit Pulmonary Medicine [address] [place] [address] Anushka Shine MD [address] [place] [address] 3mo ov Pulmonary Medicine Comment on above: 3mo ov Start: 11-02-2023 Covid-19 Vaccine () Covid-19 Vaccine () [facility] Start: 11-02-2023 Influenza vaccination Influenza Vacc ine (#1) [facility] Start: 10-21-2023 End: 10-21-2023 Patient encounter procedure 10/21/2023 12:15 PM EDT Office Visit Pulmonary Medicine [address] [place] [address] Anushka Shine MD [address] [place] [address] 6 WK F/U OK PER DR SHINE Pulmonary Medicine Comment on above: 6 WK F/U OK PER DR Beni ELAINE Start: 09-10-2023 End: 09-10-2023 ambulatory 09/10/2023 8:30 AM EDT Results Only [facility]i [place] [facility] Laboratory [address] [place] [address] [facility]i [place] [facility] Start: 09-09-2023 End: 12-09-2023 [facility] Lab Routine Chronic cough Expected: 09/09/2023, Expires: 12/09/2023 [facility] Work Phone: Comment on above: Expected: 09/09/2023 , Expires: 12/09/2023 Start: 09-09-2023 End: 12-09-2023 Eosinophils [#/volume] in Blood EOSINOPHIL ABS COUNT Lab Routine Chronic cough Expected: 09/09/2023, Expires: 12/09/2023 [facility] Comment on above: Expected: 09/09/2023 , Expires: 12/09/2023 Start: 09-09-2023 End: 12-09-2023 IgE [Units/volume] in Serum or Plasma IMMUNOGLOBULIN E Lab Routine Chronic cough Expected: 09/09/2023, Expires: 12/09/2023 [facility] Comment on above: Expected: 09/09/2023 , Expires: 12/09/2023 Start: 03-03-2023 Advance Directive Discussion Advance Directive Discussion [facility] Start: 03-03-2023 Behavioral Health Screening Behavioral Health Screening [facility] Start: 11-01-2022 Covid-19 Vaccine () Covid-19 Vaccine () [facility] Start: 11-01-2022 Influenza vaccination INFLUENZA (#1) [facility] Start: 07-13-2022 COVID-19 VACCINE (5 - Pfizer series) COVID-19 VACCINE (5 - Pfizer series) [facility] Start: 03-03-2022 ADVANCE DIRECTIVE DISCUSSION ADVANCE DIRECTIVE DISCUSSION [facility] Start: 03-03-2022 DEPRESSION ASSESSMENT DEPRESSION ASS ESSMENT [facility] Start: 11-01-2021 Influenza vaccination INFLUENZA (#1) [facility] Start: 2019 RSV Vaccine (1 - 1-d ose 75+ series) RSV Vaccine (1 - 1-dose 75+ series) [facility] Start: 2009 BONE DENSITY BONE DENSITY [facility] Start: 2009 Pneumococcal Vaccine : 65+ (1 of 1 - PCV) Pneumococcal Vaccine: 65+ (1 of 1 - PCV) [facility] Start: 2009 PNEUMOCOCCAL: 65+ (1 - PCV) PNEUMOCOCCAL: 65+ (1 - PCV) [facility] Start: 2009 Screening for osteoporosis Bone Density Screening [facility] Start: 2004 RSV Vaccine (1 - 1-d ose 60+ series) RSV Vaccine (1 - 1-dose 60+ series) [facility] Start: 1994 Pneumococcal Vaccine : 50+ (1 of 1 - PCV) Pneumococcal Vaccine: 50+ (1 of 1 - PCV) [facility] Start: 1994 SHINGRIX VACCINE (1 of 2) SHINGRIX VACCINE (1 of 2) [facility] Start: 1989 DIABETES SCREEN DIABETES SCREEN [facility] Start: 1989 Diabetes Screening Diabetes Screenin g [facility] Start: 1963 Urine microalbumin profile [facility] Start: 1962 Annual PCP Team Cereal Supervisor teena Disease Visit Annual PCP Team Chronic Disease Visit [facility] Start: 1962 Anxiety Screening Anxiety Screening [facility] Start: 1962 Depression Screening Depression Scre ening [facility] Start: 1962 HEPATITIS C SCREENING HEPATITIS C SC JULIA [facility] Patient Education ED Dizziness, Uncertain Cause [facility] Work Phone: Patient referral [facility] Work Phone: SARS-CoV-2 (COVID-19 ) Ag [Presence] in Upper respiratory specimen by Rapid immunoassa [facility] XR Chest PA and Lateral XR CHEST 2V FRONTAL/LAT Radiology Routine Cough, unspecified type 09/09/2023 9:26 AM EDT [facility] Work Phone: Immunizations Immunization Date Immunization Notes Care Provider Court [place] 12-06-2019 influenza virus vacc ine, unspecified formulation Pulm [facility]str Work Phone: [facility] Payers Date Payer Category Payer Self-pay 2022 Medicare [employer] MEDICARE [employer] GOLD PLUS [id number] 2022-Present [phone] [place] [id number] [facility] [id number] 2022 Medicare (Managed Care) [employer]NA G OLD PLUS [id number] 2022 Private Health Insurance [id number] Unknown [id number] Unknown [id number] Unknown [id number] Unknown [id number] Social History Date Type Detail Facility Start: 11-11-2022 End: 11-11-2022 Tobacco smoking status NHIS Tobacco smoking consumption unknown [facility] Start: 1945 Sex Assigned At Not on file C [facility] Start: 1945 Sex Assigned At Female W [facility] Start: 11-11-2022 End: 10-23-2023 History of Social function [facility] Start: 11-11-2022 End: 10-23-2023 Area Deprivation Index [facility] National Score (1-10 0), lower number is lower risk 49 [facility] Start: 09-09-2023 End: 10-08-2024 Tobacco smoking status CTIS Never smoked tobacco [facility] History of tobacco use Passive smoker [facility] Start: 09-09-2023 Tobacco use and exposure Smoke less tobacco non-user [facility] Start: 09-09-2023 Tobacco Comment smoked for 25 years [facility] Start: 06-17-2024 Sex Female (finding) [facility] Mental Status Date Assessment Result Facility 11-11-2022 Cognitive function Level Of Cons ciousness Awake;Alert;Appropriate;Follow s Commands [facility] Work Phone: Clinical Notes 12-21-2019 to 04-19-2024 Telephone Encounter - Sarai Brunson LPN - 04/19/2024 12:59 PM ESTTelephone Encounter - Sarai Brunson LPN - 04/19/2024 12:59 PM ESTPatient Instructions Note Date & Type Note Facility 04-19-2024 Telephone encounter Note Formatting of this note is different fro m the original. FRANKO 01/23/24. Patient has had recurrence of cough and would like to resume Arnuity. They are currently in [place] for the winter. Patient phones requesting refills as follows: Requested Prescriptions Pending Prescriptions Disp Refills fluticasone furoate (ARNUITY ELLIPTA) 100 mcg/actuation inhaler 1 Each 5 Sig: Inhale 1 Puff as instructed once daily. Please review and advise. Sarai Brunson LPN [facility] 04-19-2024 Miscellaneous Notes Formatting of this note is different fro m the original. FRANKO 01/23/24. Patient has had recurrence of cough and would like to resume Arnuity. They are currently in [place] for the winter. Patient phones requesting refills as follows: Requested Prescriptions Pending Prescriptions Disp Refills fluticasone furoate (ARNUITY ELLIPTA) 100 mcg/actuation inhaler 1 Each 5 Sig: Inhale 1 Puff as instructed once daily. Please review and advise. Sarai Brunson LPN documented in this encounter [facility] 01-23-2024 Instructions Anushka Shine MD - 01/23/2024 9:20 AM EST If cough recurs then start inhaled corticosteroid first and if cough persists after restarting inhaler then restart stomach medication documented in this encounter [facility] 01-23-2024 History of Present illness Narrative Formatting of this note is different fro m the original. Images from the original note were not included. . [facility] [place] Note Patient name: Ondina De La Fuente PCP: Ck Joyce MD CC: cough HPI: Ondina De La Fuente 78 year old female non-smoker for hypothyroidism, nasal polyposis and chronic cough. At initial visit, PFTs showed small airways obstruction and normal Kike. She was started on therapy for silent GERD and ICS with plans for definitive LESLEY if no response to therapy. Her cough resolved after the first week of treatment. She presents today for follow-up. She stopped using both her proton pump inhibitor and her inhaled corticosteroid approximately 10 days ago. She feels encouraged by the lack of recurrence of her cough explained to her that is too early to tell. She denies any other respiratory symptoms, specifically, shortness of breath, wheezing or chest tightness. No other new medical issues since her last office visit. PAST MEDICAL HISTORY Diagnosis Date Bursitis, hip Cough variant asthma GERD (gastroesophageal reflux disease) HLD (hyperlipidemia) Hypothyroidism Kidney stone Nasal polyps ALLERGIES No Known Allergies LIPITOR 20 mg tablet Take 20 mg by mouth once daily. fluticasone (FLONASE ALLERGY RELIEF) 50 mcg/actuation nasal spray Use 2 Sprays in each nostril once daily. levothyroxine (SYNTHROID) 88 mcg tablet Take 88 mcg by mouth once daily. vit A/vit C/vit E/zinc/copper (OCUVITE PRESERVISION ORAL) Take 1 tablet by mouth once daily. fluticasone furoate (ARNUITY ELLIPTA) 100 mcg/actuation inhaler Inhale 1 Puff as instructed once daily. (Patient not taking: Reported on 01/23/2024) pantoprazole DR (PROTONIX) 40 mg tablet Take 1 tablet by mouth once daily. Take in the evening. Do not take with Synthroid (Patient not taking: Reported on 01/23/2024) Social History Tobacco Use Smoking status: Never Passive exposure: Past Smokeless tobacco: Never Tobacco comments: smoked for 25 years FAMILY HISTORY Problem Relation Age of Onset Pancreatic Cancer Mother No Known Problems Father 98 y/o other (Cirrhosis of liver) Brother PAST SURGICAL HISTORY Procedure Laterality Date SINUS SURGERY HX x 3 last 2017 PMH, Social history, family history and surgical history reviewed and updated in EMR REVIEW OF SYSTEMS: CONSTITUTIONAL: No fevers, chills, nightsweats, unintended weight loss HEENT: Denies nasal congestion/sinus symptoms, postnasal drip. CARDIOVASCULAR: No chest pain, dyspnea, palpitations, edema. PULM: See HPI GI: No dysphagia/odynophagia, problematic reflux. PHYSICAL EXAMINATION: Weight 67.1 kg, BP 110/70, pulse 80, SpO2 97% on room air, respiratory rate 16 General Appearance: Age-appropriate female, NAD. Some throat clearing. Skin: Skin color, texture, turgor normal, no suspicious rashes or lesions. Head: Normocephalic, no masses, lesions, tenderness or abnormalities. Eyes: Sclera, conjunctiva normal. Oropharynx: No oral lesions, no thrush, no posterior pharyngeal cobblestoning. Neck: No JVD, no masses, no adenopathy. Lungs: Not labored, normal percussion, no wheezes or crackles. Heart: Regular rate and rhythm, no murmurs gallops. Extremities: No edema. Assessment/Plan: 1. Cough variant asthma -She will remain off medication. If she has recrudescence of her cough she was instructed to restart the inhaled corticosteroid first. If she has persistent cough after starting her inhaled therapy then she will need to restart her proton pump inhibitor. She was instructed to contact the office if she has recrudescence of her symptoms -RTC 6 months or sooner with problems Anushka Shine MD [facility] [place] documented in this encounter [facility] 01-23-2024 Note HNO ID: [id number] Author: ANUSHKA SHINE MD Service: ? Author Type: Physician Type: Progress Notes Filed: 01/23/2024 11:14 Note Text: . [facility] [place] Note Patient name: Ondina De La Fuente PCP: Ck Joyce MD CC: cough HPI: Ondina De La Fuente 78 year old female non-smoker for hypothyroidism, nasal polyposis and chronic cough. At initial visit, PFTs showed small airways obstruction and normal Kike. She was started on therapy for silent GERD and ICS with plans for definitive LESLEY if no response to therapy. Her cough resolved after the first week of treatment. She presents today for follow-up. She stopped using both her proton pump inhibitor and her inhaled corticosteroid approximately 10 days ago. She feels encouraged by the lack of recurrence of her cough explained to her that is too early to tell. She denies any other respiratory symptoms, specifically, shortness of breath, wheezing or chest tightness. No other new medical issues since her last office visit. PAST MEDICAL HISTORY Diagnosis Date Bursitis, hip Cough variant asthma GERD (gastroesophageal reflux disease) HLD (hyperlipidemia) Hypothyroidism Kidney stone Nasal polyps ALLERGIES No Known Allergies LIPITOR 20 mg tablet Take 20 mg by mouth once daily. fluticasone (FLONASE ALLERGY RELIEF) 50 mcg/actuation nasal spray Use 2 Sprays in each nostril once daily. levothyroxine (SYNTHROID) 88 mcg tablet Take 88 mcg by mouth once daily. vit A/vit C/vit E/zinc/copper (OCUVITE PRESERVISION ORAL) Take 1 tablet by mouth once daily. fluticasone furoate (ARNUITY ELLIPTA) 100 mcg/actuation inhaler Inhale 1 Puff as instructed once daily. (Patient not taking: Reported on 01/23/2024) pantoprazole DR (PROTONIX) 40 mg tablet Take 1 tablet by mouth once daily. Take in the evening. Do not take with Synthroid (Patient not taking: Reported on 01/23/2024) Social History Tobacco Use Smoking status: Never Passive exposure: Past Smokeless tobacco: Never Tobacco comments: smoked for 25 years FAMILY HISTORY Problem Relation Age of Onset Pancreatic Cancer Mother No Known Problems Father 98 y/o other (Cirrhosis of liver) Brother PAST SURGICAL HISTORY Procedure Laterality Date SINUS SURGERY HX x 3 last 2017 PMH, Social history, family history and surgical history reviewed and updated in EMR REVIEW OF SYSTEMS: CONSTITUTIONAL: No fevers, chills, nightsweats, unintended weight loss HEENT: Denies nasal congestion/sinus symptoms, postnasal drip. CARDIOVASCULAR: No chest pain, dyspnea, palpitations, edema. PULM: See HPI GI: No dysphagia/odynophagia, problematic reflux. PHYSICAL EXAMINATION: Weight 67.1 kg, BP 110/70, pulse 80, SpO2 97% on room air, respiratory rate 16 General Appearance: Age-appropriate female, NAD. Some throat clearing. Skin: Skin color, texture, turgor normal, no suspicious rashes or lesions. Head: Normocephalic, no masses, lesions, tenderness or abnormalities. Eyes: Sclera, conjunctiva normal. Oropharynx: No oral lesions, no thrush, no posterior pharyngeal cobblestoning. Neck: No JVD, no masses, no adenopathy. Lungs: Not labored, normal percussion, no wheezes or crackles. Heart: Regular rate and rhythm, no murmurs gallops. Extremities: No edema. Assessment/Plan: 1. Cough variant asthma -She will remain off medication. If she has recrudescence of her cough she was instructed to restart the inhaled corticosteroid first. If she has persistent cough after starting her inhaled therapy then she will need to restart her proton pump inhibitor. She was instructed to contact the office if she has recrudescence of her symptoms -RTC 6 months or sooner with problems Anushka Shine MD [facility] [place] [facility] 10-23-2023 History of Present illness Narrative Formatting of this note is different fro m the original. Images from the original note were not included. . [facility] [place] Note Patient name: Ondina De La Fuente PCP: Ck Joyce MD CC: Follow-up cough HPI: Ondina De La Fuente 78 year old female non-smoker with PMH significant for hypothyroidism, nasal polyposis with chronic sinus disease recently seen in pulmonary clinic for evaluation of chronic cough. She had no prior history of asthma and no prior treatment of her allergies. At initial visit, her pulmonary function test showed reversible small airways obstruction and normal exhaled nitric oxide level. She had symptoms to suggest possible silent reflux. She was started on inhaled corticosteroid and empiric Protonix. Plan for possible ENT evaluation and definitive methacholine challenge testing pending response to initial therapy. Today she states she has been doing well. Her cough resolved. Cough stopped after 1 week of therapy. No coughing at night. No wheezing or chest tightness or shortness of breath. Complaint today is of problems with memory. No focal side effects from her inhaled corticosteroid. ASTHMA CONTROL TEST Date: 10/23/2023 In the last 4 weeks, how much of the time did your asthma keep you from getting as much done at work or home that you wanted to do? None of the time (5) In the last 4 weeks, how often have you had shortness of breath? Not at all (5) In the last 4 weeks, how often did your asthma symptoms (wheezing, coughing, shortness of breath, chest tightness or pain) wake you up at night or earlier than usual? Once or twice (4) In the last 4 weeks, how often have you used your rescue inhaler or nebulizer medication (such as Albuterol, Proventil, Ventolin, Maxair, Xoponex, or Primatene Mist)? Not at all (5) In the last 4 weeks, how would you rate your asthma control? Completely controlled (5) Total: more than 20 PAST MEDICAL HISTORY No date: Bursitis, hip No date: Cough variant asthma No date: GERD (gastroesophageal reflux disease) No date: HLD (hyperlipidemia) No date: Hypothyroidism No date: Kidney stone No date: Nasal polyps ALLERGIES No Known Allergies LIPITOR 20 mg tablet Take 20 mg by mouth once daily. fluticasone (FLONASE ALLERGY RELIEF) 50 mcg/actuation nasal spray Use 2 Sprays in each nostril once daily. levothyroxine (SYNTHROID) 88 mcg tablet Take 88 mcg by mouth once daily. vit A/vit C/vit E/zinc/copper (OCUVITE PRESERVISION ORAL) Take 1 tablet by mouth once daily. fluticasone furoate (ARNUITY ELLIPTA) 100 mcg/actuation inhaler Inhale 1 Puff as instructed once daily. pantoprazole DR (PROTONIX) 40 mg tablet Take 1 tablet by mouth once daily. Take in the evening. Do not take with Synthroid Social History Tobacco Use Smoking status: Never Passive exposure: Past Smokeless tobacco: Never Tobacco comments: smoked for 25 years FAMILY HISTORY Problem Relation Age of Onset Pancreatic Cancer Mother No Known Problems Father 98 y/o other (Cirrhosis of liver) Brother PAST SURGICAL HISTORY No date: SINUS SURGERY HX Comment: x 3 last 2017 PMH, Social history, family history and surgical history reviewed and updated in EMR REVIEW OF SYSTEMS: CONSTITUTIONAL: No fevers, chills, nightsweats, unintended weight loss HEENT: Denies nasal congestion/sinus symptoms, allergy problems. CARDIOVASCULAR: No chest pain, dyspnea, palpitations, edema. PULM: See HPI GI: No dysphagia/odynophagia, problematic reflux PHYSICAL EXAMINATION: Weight 152 pounds, BP 120/68 RR 16, SpO2 98% on room air, pulse 62 General Appearance: Age-appropriate female, NAD. Oropharynx: No oral lesions or thrush or erythema. Lungs: Not labored, normal to percussion, no wheezes or crackles. Heart: Regular rate and rhythm, no murmurs or gallops. Extremities: No edema or clubbing. Assessment/Plan: 1. Cough asthma -Symptoms controlled with inhaled corticosteroid -She will continue on current inhaled therapy with reassessment in 3 months. If she is doing well we will trial discontinuation of ICS 2. GERD -Suggestive of silent reflux. Cough has resolved with empiric therapy -Continue current course 3. Nasal polyposis -Nonobstructing. Continue Flonase nasal spray Anushka Shine MD [facility] [place] documented in this encounter [facility] 10-23-2023 Note HNO ID: [id number] Author: ANUSHKA SHINE MD Service: ? Author Type: Physician Type: Progress Notes Filed: 10/23/2023 10:10 Note Text: . [facility] [place] Note Patient name: Ondina De La Fuente PCP: Ck Joyce MD CC: Follow-up cough HPI: Ondina De La Fuente 78 year old female non-smoker with PMH significant for hypothyroidism, nasal polyposis with chronic sinus disease recently seen in pulmonary clinic for evaluation of chronic cough. She had no prior history of asthma and no prior treatment of her allergies. At initial visit, her pulmonary function test showed reversible small airways obstruction and normal exhaled nitric oxide level. She had symptoms to suggest possible silent reflux. She was started on inhaled corticosteroid and empiric Protonix. Plan for possible ENT evaluation and definitive methacholine challenge testing pending response to initial therapy. Today she states she has been doing well. Her cough resolved. Cough stopped after 1 week of therapy. No coughing at night. No wheezing or chest tightness or shortness of breath. Complaint today is of problems with memory. No focal side effects from her inhaled corticosteroid. ASTHMA CONTROL TEST Date: 10/23/2023 In the last 4 weeks, how much of the time did your asthma keep you from getting as much done at work or home that you wanted to do? None of the time (5) In the last 4 weeks, how often have you had shortness of breath? Not at all (5) In the last 4 weeks, how often did your asthma symptoms (wheezing, coughing, shortness of breath, chest tightness or pain) wake you up at night or earlier than usual? Once or twice (4) In the last 4 weeks, how often have you used your rescue inhaler or nebulizer medication (such as Albuterol, Proventil, Ventolin, Maxair, Xoponex, or Primatene Mist)? Not at all (5) In the last 4 weeks, how would you rate your asthma control? Completely controlled (5) Total: more than 20 PAST MEDICAL HISTORY No date: Bursitis, hip No date: Cough variant asthma No date: GERD (gastroesophageal reflux disease) No date: HLD (hyperlipidemia) No date: Hypothyroidism No date: Kidney stone No date: Nasal polyps ALLERGIES No Known Allergies LIPITOR 20 mg tablet Take 20 mg by mouth once daily. fluticasone (FLONASE ALLERGY RELIEF) 50 mcg/actuation nasal spray Use 2 Sprays in each nostril once daily. levothyroxine (SYNTHROID) 88 mcg tablet Take 88 mcg by mouth once daily. vit A/vit C/vit E/zinc/copper (OCUVITE PRESERVISION ORAL) Take 1 tablet by mouth once daily. fluticasone furoate (ARNUITY ELLIPTA) 100 mcg/actuation inhaler Inhale 1 Puff as instructed once daily. pantoprazole DR (PROTONIX) 40 mg tablet Take 1 tablet by mouth once daily. Take in the evening. Do not take with Synthroid Social History Tobacco Use Smoking status: Never Passive exposure: Past Smokeless tobacco: Never Tobacco comments: smoked for 25 years FAMILY HISTORY Problem Relation Age of Onset Pancreatic Cancer Mother No Known Problems Father 98 y/o other (Cirrhosis of liver) Brother PAST SURGICAL HISTORY No date: SINUS SURGERY HX Comment: x 3 last 2017 PMH, Social history, family history and surgical history reviewed and updated in EMR REVIEW OF SYSTEMS: CONSTITUTIONAL: No fevers, chills, nightsweats, unintended weight loss HEENT: Denies nasal congestion/sinus symptoms, allergy problems. CARDIOVASCULAR: No chest pain, dyspnea, palpitations, edema. PULM: See HPI GI: No dysphagia/odynophagia, problematic reflux PHYSICAL EXAMINATION: Weight 152 pounds, BP 120/68 RR 16, SpO2 98% on room air, pulse 62 General Appearance: Age-appropriate female, NAD. Oropharynx: No oral lesions or thrush or erythema. Lungs: Not labored, normal to percussion, no wheezes or crackles. Heart: Regular rate and rhythm, no murmurs or gallops. Extremities: No edema or clubbing. Assessment/Plan: 1. Cough asthma -Symptoms controlled with inhaled corticosteroid -She will continue on current inhaled therapy with reassessment in 3 months. If she is doing well we will trial discontinuation of ICS 2. GERD -Suggestive of silent reflux. Cough has resolved with empiric therapy -Continue current course 3. Nasal polyposis -Nonobstructing. Continue Flonase nasal spray Anushka Shine MD [facility] [place] [facility] 07-09-2024 History of Present illness Narrative Formatting of this note is different fro m the original. Images from the original note were not included. . [facility] [place] Note Patient name: Ondina De La Fuente PCP: Ck Joyce MD Referring Physician: Same Consultation requested by Dr. Joyce for an opinion regarding cough. My final recommendations will be communicated back to the requesting physician by way of shared Medical record or letter to requesting physician via US mail. CC: cough HPI: Ondina De La Fuente 78 year old female non-smoker with PMH only significant for hypothyroidism, nasal polyposis, chronic sinus disease with a history of 3 sinus surgeries being seen for chronic cough. He denies any history of asthma or significant allergies. Previous allergy testing according to her showed slight allergic reaction to multiple allergens but she could not elucidate any further. She never required immunotherapy. She had been on Advair in the remote past, placed on therapy by an ENT physician. Her current heat history dates back to a year ago when she first noted moist cough without sputum production occurring in the evening when she first retired at bedtime. Cough did not interfere with her sleep. She denies any acid reflux symptoms. More recently her cough can occur during the daytime but has interfered with her sleep. She has heard wheezing. She has mild dyspnea on exertion when climbing stairs or hurrying. No chest pain. She has persistent sinus disease despite use of antihistamine and nasal steroids. She denies sensation of postnasal drip. She denies headaches. She had COVID in March of this last year with symptoms of headache and sore throat but no respiratory issues at that time. She is questioning whether she may have long-haul COVID. DATA: SERVICE DATE: 09/09/2023 SERVICE TIME: 9:46 AM Oral Exhaled Nitric Oxide measurement: 21.0 (ppb) PFT 09/09/2023: Review pulmonary function test shows minimal mid flow obstruction that markedly improves postbronchodilator Labs: No recent pertinent laboratory testing Imaging / Diagnostic Studies: Review of chest CT shows mild scoliosis and no significant lung parenchymal abnormalities Outside MRI 11/2022: Review MRI shows significant sinus disease PAST MEDICAL HISTORY Diagnosis Date Bursitis, hip Hypothyroidism Kidney stone Nasal polyps ALLERGIES No Known Allergies LIPITOR 20 mg tablet Take 20 mg by mouth once daily. fluticasone (FLONASE ALLERGY RELIEF) 50 mcg/actuation nasal spray Use 2 Sprays in each nostril once daily. levothyroxine (SYNTHROID) 88 mcg tablet Take 88 mcg by mouth once daily. vit A/vit C/vit E/zinc/copper (OCUVITE PRESERVISION ORAL) Take 1 tablet by mouth once daily. fluticasone furoate (ARNUITY ELLIPTA) 100 mcg/actuation inhaler Inhale 1 Puff as instructed once daily. pantoprazole DR (PROTONIX) 40 mg tablet Take 1 tablet by mouth once daily. Take in the evening. 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 EYES: No diplopia or blurry vision. CARDIOVASCULAR: No chest pain, palpitations, orthopnea, PND, edema. PULM: See HPI GI: No dysphagia/odynophagia, problematic reflux : No urinary complaints, including dysuria, gross hematuria or pyuria. NEURO: No new balance problems, peripheral weakness/paresthesias or numbness of concern. MUSC-SKEL: No joint pain, swelling, or erythema. PSY: No concerns regarding depression, anxiety INTEGUMENTARY: No new skin changes,, rashes, eczema PHYSICAL EXAMINATION: BP 122/74 Pulse 92 Resp 15 Ht 5' 4.8" (1.65m) Wt 149 lb (67.6kg) SpO2 94% BMI 24.95 kg/(m^2). General Appearance: Elderly female, NAD. Skin: Skin color, texture, turgor normal, no suspicious rashes or lesions. Head: Normocephalic, no masses, lesions, tenderness or abnormalities. Nose: Nasal congestion but no obvious polyps Eyes: Sclera, conjunctiva normal. Oropharynx: No oral lesions or cobblestoning. Neck: No JVD, no masses, no adenopathy. Chest wall: Kyphosis Lungs: Not labored, normal to percussion, few left inspiratory squeaks. Heart: Regular rate and rhythm, no murmurs. Extremities: No significant edema, no clubbing. Musculoskeletal: No joint deformities or effusions. Neurologic: Alert and oriented, no focal findings. Assessment/Plan: 1. Chronic cough -Multifactorial: Suspect asthma, allergies with sinus disease and postnasal drip, possible silent acid reflux especially in light of her supine cough -Will treat empirically for silent reflux with Protonix -Started inhaled corticosteroid for her airways disease -Continue nasal steroids and antihistamine. 2. Nasal polyposis/chronic sinusitis -See #1 -May need to revisit ENT physician 3. Small airways disease -See #1 -If no improvement she will need a definitive methacholine challenge test Anushka Shine MD [facility] [place] documented in this encounter [facility] 09-09-2023 Note HNO ID: [id number] Author: ANUSHKA SHINE MD Service: ? Author Type: Physician Type: Progress Notes Filed: 09/09/2023 15:16 Note Text: . [facility] [place] Note Patient name: Ondina De La Fuente PCP: Ck Joyce MD Referring Physician: Same Consultation requested by Dr. Joyce for an opinion regarding cough. My final recommendations will be communicated back to the requesting physician by way of shared Medical record or letter to requesting physician via US mail. CC: cough HPI: Ondina De La Fuente 78 year old female non-smoker with PMH only significant for hypothyroidism, nasal polyposis, chronic sinus disease with a history of 3 sinus surgeries being seen for chronic cough. He denies any history of asthma or significant allergies. Previous allergy testing according to her showed slight allergic reaction to multiple allergens but she could not elucidate any further. She never required immunotherapy. She had been on Advair in the remote past, placed on therapy by an ENT physician. Her current heat history dates back to a year ago when she first noted moist cough without sputum production occurring in the evening when she first retired at bedtime. Cough did not interfere with her sleep. She denies any acid reflux symptoms. More recently her cough can occur during the daytime but has interfered with her sleep. She has heard wheezing. She has mild dyspnea on exertion when climbing stairs or hurrying. No chest pain. She has persistent sinus disease despite use of antihistamine and nasal steroids. She denies sensation of postnasal drip. She denies headaches. She had COVID in March of this last year with symptoms of headache and sore throat but no respiratory issues at that time. She is questioning whether she may have long-haul COVID. DATA: SERVICE DATE: 09/09/2023 SERVICE TIME: 9:46 AM Oral Exhaled Nitric Oxide measurement: 21.0 (ppb) PFT 09/09/2023: Review pulmonary function test shows minimal mid flow obstruction that markedly improves postbronchodilator Labs: No recent pertinent laboratory testing Imaging / Diagnostic Studies: Review of chest CT shows mild scoliosis and no significant lung parenchymal abnormalities Outside MRI 11/2022: Review MRI shows significant sinus disease PAST MEDICAL HISTORY Diagnosis Date Bursitis, hip Hypothyroidism Kidney stone Nasal polyps ALLERGIES No Known Allergies LIPITOR 20 mg tablet Take 20 mg by mouth once daily. fluticasone (FLONASE ALLERGY RELIEF) 50 mcg/actuation nasal spray Use 2 Sprays in each nostril once daily. levothyroxine (SYNTHROID) 88 mcg tablet Take 88 mcg by mouth once daily. vit A/vit C/vit E/zinc/copper (OCUVITE PRESERVISION ORAL) Take 1 tablet by mouth once daily. fluticasone furoate (ARNUITY ELLIPTA) 100 mcg/actuation inhaler Inhale 1 Puff as instructed once daily. pantoprazole DR (PROTONIX) 40 mg tablet Take 1 tablet by mouth once daily. Take in the evening. 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 EYES: No diplopia or blurry vision. CARDIOVASCULAR: No chest pain, palpitations, orthopnea, PND, edema. PULM: See HPI GI: No dysphagia/odynophagia, problematic reflux : No urinary complaints, including dysuria, gross hematuria or pyuria. NEURO: No new balance problems, peripheral weakness/paresthesias or numbness of concern. MUSC-SKEL: No joint pain, swelling, or erythema. PSY: No concerns regarding depression, anxiety INTEGUMENTARY: No new skin changes,, rashes, eczema PHYSICAL EXAMINATION: BP 122/74 Pulse 92 Resp 15 Ht 5' 4.8" (1.65m) Wt 149 lb (67.6kg) SpO2 94% BMI 24.95 kg/(m2). General Appearance: Elderly female, NAD. Skin: Skin color, texture, turgor normal, no suspicious rashes or lesions. Head: Normocephalic, no masses, lesions, tenderness or abnormalities. Nose: Nasal congestion but no obvious polyps Eyes: Sclera, conjunctiva normal. Oropharynx: No oral lesions or cobblestoning. Neck: No JVD, no masses, no adenopathy. Chest wall: Kyphosis Lungs: Not labored, normal to percussion, few left inspiratory squeaks. Heart: Regular rate and rhythm, no murmurs. Extremities: No significant edema, no clubbing. Musculoskeletal: No joint deformities or effusions. Neurologic: Alert and (more content not included)... [facility] 09-09-2023 Nurse Note Intake information documented in the prior visit with Respiratory Therapy today. [facility] 09-09-2023 Nurse Note Intake information documented in the prior visit with Respiratory Therapy today. documented in this encounter [facility] 09-09-2023 Note HNO ID: [id number] Author: MERVIN ORONA, LINDA Service: ? Author Type: Registered Resp Therapist Type: Progress Notes Filed: 09/09/2023 09:47 Note Text: PULM FUNCTION: Provider: Ck Ayala MD Spirometry w/BD: 1 Exhaled Nitric Oxide: 1 [facility] 09-09-2023 Note HNO ID: [id number] Author: MERVIN ORONA RRT Service: ? Author Type: Registered Resp Therapist Type: Procedures Filed: 09/09/2023 09:46 Note Text: RESPIRATORY THERAPY ORAL EXHALED NITRIC OXIDE SERVICE DATE: 09/09/2023 SERVICE TIME: 9:46 AM Oral Exhaled Nitric Oxide measurement: 21.0 (ppb) Normal: Adult <25 ppb, pediatric (<12 years) <20 ppb High Normal / Increased: Adult 25-50 ppb, pediatric (<12 years) 20-35 ppb Moderately raised exhaled Nitric Oxide may indicate underlying inflammation, but note that: Cold and influenza can raise exhaled Nitric Oxide and some patients have higher baseline exhaled Nitric Oxide levels than others. High: Adult >50 ppb, pediatric (<12 years) >35 ppb Indicative of ongoing eosinophilic inflammation. Symptomatic patient likely to respond to steroids. Possible causes (if already on steroids): Poor compliance, recent allergen exposure, steroid dose inadequate, and steroid resistance. Note that not all patients with high exhaled nitric oxide levels display symptoms. Oral Exhaled Nitric Oxide measurement (Previous Encounters) Test Date Oral Exhaled Nitric Oxide (ppb) 09/09/2023 21.0 NAME: Mervin Orona RRT PATIENT NAME: Ondina De La Fuente DATE: September 09, 2023 TIME: 9:46 AM [facility] 09-09-2023 Procedure note Associated Order(s): NITRIC OXIDE, EXHAL ED RESPIRATORY THERAPY ORAL EXHALED NITRIC OXIDE SERVICE DATE: 09/09/2023 SERVICE TIME: 9:46 AM Oral Exhaled Nitric Oxide measurement: 21.0 (ppb) Normal: Adult <25 ppb, pediatric (<12 years) <20 ppb High Normal / Increased: Adult 25-50 ppb, pediatric (<12 years) 20-35 ppb Moderately raised exhaled Nitric Oxide may indicate underlying inflammation, but note that: Cold and influenza can raise exhaled Nitric Oxide and some patients have higher baseline exhaled Nitric Oxide levels than others. High: Adult >50 ppb, pediatric (<12 years) >35 ppb Indicative of ongoing eosinophilic inflammation. Symptomatic patient likely to respond to steroids. Possible causes (if already on steroids): Poor compliance, recent allergen exposure, steroid dose inadequate, and steroid resistance. Note that not all patients with high exhaled nitric oxide levels display symptoms. Oral Exhaled Nitric Oxide measurement (Previous Encounters) Test Date Oral Exhaled Nitric Oxide (ppb) 09/09/2023 21.0 NAME: Mervin Orona RRT PATIENT NAME: Ondina De La Fuente DATE: September 09, 2023 TIME: 9:46 AM [facility] 09-09-2023 History of Present illness Narrative Formatting of this note might be differe nt from the original. PULM FUNCTION: Provider: Ck Ayala MD Spirometry w/BD: 1 Exhaled Nitric Oxide: 1 documented in this encounter [facility] 09-09-2023 Procedure note Associated Order(s): NITRIC OXIDE, EXHAL ED RESPIRATORY THERAPY ORAL EXHALED NITRIC OXIDE SERVICE DATE: 09/09/2023 SERVICE TIME: 9:46 AM Oral Exhaled Nitric Oxide measurement: 21.0 (ppb) Normal: Adult <25 ppb, pediatric (<12 years) <20 ppb High Normal / Increased: Adult 25-50 ppb, pediatric (<12 years) 20-35 ppb Moderately raised exhaled Nitric Oxide may indicate underlying inflammation, but note that: Cold and influenza can raise exhaled Nitric Oxide and some patients have higher baseline exhaled Nitric Oxide levels than others. High: Adult >50 ppb, pediatric (<12 years) >35 ppb Indicative of ongoing eosinophilic inflammation. Symptomatic patient likely to respond to steroids. Possible causes (if already on steroids): Poor compliance, recent allergen exposure, steroid dose inadequate, and steroid resistance. Note that not all patients with high exhaled nitric oxide levels display symptoms. Oral Exhaled Nitric Oxide measurement (Previous Encounters) Test Date Oral Exhaled Nitric Oxide (ppb) 09/09/2023 21.0 NAME: Mervin Orona RRT PATIENT NAME: Ondina De La Fuente DATE: September 09, 2023 TIME: 9:46 AM documented in this encounter [facility] 09-09-2023 History of Present illness Narrative Formatting of this note might be differe nt from the original. Radiology Service Progress Note PATIENT NAME: Ondina De La Fuente DATE OF SERVICE: September 09, 2023 TIME: 10:34 AM PATIENT IDENTITY VERIFICATION COMPLETED USING TWO (2) IDENTIFIERS: Name and Date of confirmed by patient verbally. FALL SCREENING: Has the patient had 2 falls in the last year or 1 fall with injury or currently using an Ambulatory Assistive Device (Walker, Cane, Wheelchair, Crutches, etc.)? No PATIENT GENDER DATA: Female. status: : No status: NO. PATIENT RELEVANT IMPLANT DATA REVIEWED: Not Applicable PATIENT PRESENTS WITH AN IMPLANTABLE OR ATTACHED PATCH WASHER: No RADIOLOGY DEPARTMENT: General X-ray: Exam(s) Completed: Chest X-Ray PERIPHERAL IV DATA: Not applicable SIGNED BY: RT Tamela(Emre) September 09, 2023 10:34 AM documented in this encounter [facility] 09-09-2023 Note HNO ID: [id number] Author: SHIRLEY VYAS RT(R) Service: ? Author Type: Technologist Type: Progress Notes Filed: 09/09/2023 10:34 Note Text: Radiology Service Progress Note PATIENT NAME: Ondnia De La Fuente DATE OF SERVICE: September 09, 2023 TIME: 10:34 AM PATIENT IDENTITY VERIFICATION COMPLETED USING TWO (2) IDENTIFIERS: Name and Date of confirmed by patient verbally. FALL SCREENING: Has the patient had 2 falls in the last year or 1 fall with injury or currently using an Ambulatory Assistive Device (Walker, Cane, Wheelchair, Crutches, etc.)? No PATIENT GENDER DATA: Female. status: : No status: NO. PATIENT RELEVANT IMPLANT DATA REVIEWED: Not Applicable PATIENT PRESENTS WITH AN IMPLANTABLE OR ATTACHED PATCH WASHER: No RADIOLOGY DEPARTMENT: General X-ray: Exam(s) Completed: Chest X-Ray PERIPHERAL IV DATA: Not applicable SIGNED BY: RT Tamela(Emre) September 09, 2023 10:34 AM [facility] 11-11-2022 History of Present illness Narrative Formatting of this note might be differe nt from the original. Patient came in with complaints of dizziness and feeling unsteady. Patient says it happened 2 weeks ago but went away relatively quickly. Patient says this started and does not seem to be going away. Patient has no sick symptoms or head injury. Patient denies any urinary symptoms. At this time is best believe that patient should go to the ER for full evaluation. Patient's daughter will take her. documented in this encounter [facility] 12-21-2019 History of Present illness Narrative DATE OF SERVICE: 12/20/2019 REASON OF VISIT: Rash on the face and upper back. HISTORY OF PRESENT ILLNESS: This is a 74-year-old female presenting with rash on the right side of the face and left side of upper back for the last 1 week. She has a lot itching. She is using Neosporin cream, but it is not getting better and is slowly increasing in sizing. Denies being exposed to anything new. REVIEW OF OTHER SYSTEMS: Normal. ALLERGIES: NKA. MEDICATIONS: Reviewed. PHYSICAL EXAMINATION: On examination, she is awake, alert, not in distress, no dyspnea. Temperature 98.1, blood pressure 164/75, pulse 62, respirations 17, pulse oximetry 95% on room air, pain score 0/10. Examination of her face, she has a well-defined annular rash with scaly surface, slightly raised margin on the right cheek, with clear center. No blister or pustule. No skin excoriation. She has similar rash on the left upper back as well. Clinically, appears to be ringworm with about 1.5 in diameter. The rest of skin and the rest of exam were normal. ASSESSMENT: Ringworm of right side cheek and left upper back. PLAN: Clinical findings were discussed with patient in detail. I explained to her that, in my opinion, this is most likely a ringworm. I gave her ketoconazole cream 2% to apply twice a day 15 g with no refills. She should not scratch the area. If there is any change, she needs to be rechecked. She should follow with her doctor for further evaluation and care. Patient understands and agrees. Dena Sims MD [id number] SSI File#: [id number] END OF DOCUMENT / CHANGE LOG FOLLOWS Last Edited By [employer]. Signed By Dena Sims MD #[id number] Dena Sims MD #[id number] on 12/23/2019 08:20 ET on 12/23/2019 08:20 ET Revision Number - 2 ^^^ Verified/Reviewed by 12/[id number] [facility] PATIENT NAME: ONDINA DE LA FUENTE [address] [facility] [address] MEDICAL REC #: [id number] [place] [address] [facility] REPORT [facility] PHYSICIAN documented in this encounter [facility] Evaluation note No assessment information availa [facility] Work Phone: Evaluation note Diagnosis Dizziness- Primary Dizziness and giddiness [facility] Cough, unspecified type- Primary [facility] Chronic cough- Primary Cough Small airways disease Other diseases of lung, not elsewhere classified Chronic pansinusitis Other chronic sinusitis [facility] Cough, unspecified type [facility] Diagnosis Cough variant asthma- Primary Gastroesophageal reflux disease, unspecified whether esophagitis present Nasal polyposis Unspecified nasal polyp [facility] Diagnosis Cough variant asthma- Primary [facility] (narrative)No reason for referral information availableWThe [facility] Work Phone: Summary Purpose Family History No Family History Records FoundNo Family History Records FoundNo Family History Records FoundNo Family History Records Found Advance Directives No Advanced Directives Records Found Advance Directive Response Recorded Date/ Time Living Will No November 11, 2022 9:30am Power of Procurement Inspector No November 9:30am Advance Directive Response Recorded Date/ Time Living Will No November 11, 2022 8:30am Power of Procurement Inspector No November 8:30am Chief Complaint and Reason for Visit Chief Complaint DIZZINESS Chief Complaint BILATERAL HIP PAIN / LUMBAR DJD / RX HERE Chief Complaint Admit Date FASTING June 11, 2024 9:1 0am Chief Complaint Admit Date FASTING June 11, 2024 9:1 0am POST MENOPAUSAL June 17, 2024 9:4 5am COUGH, SORE THROAT October 08, 2024 11: 56am Additional Source Comments Source Comments (unrecognize d section and content) In the event this informatio n is protected by the Federal Confidentiality of Alcohol and Drug Abuse Patient Records regulations: The Federal rules restrict any use of the information to criminally investigate or prosecute any alcohol or drug abuse patient.[facility] the event this information is protected by the Federal Confidentiality of Alcohol and Drug Abuse Patient Records regulations: The Federal rules restrict any use of the information to criminally investigate or prosecute any alcohol or drug abuse patient.[facility] HospitalIn the event this information is protected by the Federal Confidentiality of Alcohol and Drug Abuse Patient Records regulations: The Federal rules restrict any use of the information to criminally investigate or prosecute any alcohol or drug abuse patient.[facility] HospitalIn the event this information is protected by the Federal Confidentiality of Alcohol and Drug Abuse Patient Records regulations: The Federal rules restrict any use of the information to criminally investigate or prosecute any alcohol or drug abuse patient.[facility] HospitalIn the event this information is protected by the Federal Confidentiality of Alcohol and Drug Abuse Patient Records regulations: The Federal rules restrict any use of the information to criminally investigate or prosecute any alcohol or drug abuse patient.[facility] HospitalIn the event this information is protected by the Federal Confidentiality of Alcohol and Drug Abuse Patient Records regulations: The Federal rules restrict any use of the information to criminally investigate or prosecute any alcohol or drug abuse patient.[facility] HospitalIn the event this information is protected by the Federal Confidentiality of Alcohol and Drug Abuse Patient Records regulations: The Federal rules restrict any use of the information to criminally investigate or prosecute any alcohol or drug abuse patient.[facility] HospitalIn the event this information is protected by the Federal Confidentiality of Alcohol and Drug Abuse Patient Records regulations: The Federal rules restrict any use of the information to criminally investigate or prosecute any alcohol or drug abuse patient.[facility] HospitalIn the event this information is protected by the Federal Confidentiality of Alcohol and Drug Abuse Patient Records regulations: The Federal rules restrict any use of the information to criminally investigate or prosecute any alcohol or drug abuse patient.[facility] HospitalIn the event this information is protected by the Federal Confidentiality of Alcohol and Drug Abuse Patient Records regulations: The Federal rules restrict any use of the information to criminally investigate or prosecute any alcohol or drug abuse patient.[facility] HospitalIn the event this information is protected by the Federal Confidentiality of Alcohol and Drug Abuse Patient Records regulations: The Federal rules restrict any use of the information to criminally investigate or prosecute any alcohol or drug abuse patient.[facility] INFORMATION SOURCE (unrecogn ized section and content) DATE CREATED AUTHOR 07/13/2021 [facility] [place] DATE CREATED AUTHOR AUTHOR'S ORGANIZ ATION 11/30/2023 [facility] DATE CREATED AUTHOR AUTHOR'S ORGANIZ ATION 01/26/2024 [facility] DATE CREATED AUTHOR AUTHOR'S ORGANIZ ATION 10/10/2024 [facility] Care Teams (unrecognized sec tion and content) Technical Administrative Assistant Relationship Specialty Start Date End Date Ck Joyce MD [address] [facility] [address] [place] [address] PCP - General Family Medicine 03/19/22 Team Status: Active Member Role Status Dates Ck Joyce Primary Care Provider Active Team Status: Inactive Member Role Status Dates Dr. Shanell Rodgers , Emergency Provider Active Maria Del Carmen Dubon MD Primary Care Provider Active Technical Administrative Assistant Relationship Specialty Start Date End Date Ck Joyce MD [address] [facility] [address] [place] [address] PCP - General Family Medicine 03/19/22 Team Status: Inactive Member Role Status Dates Maria Del Carmen Dubon MD Primary Care Provider Active PILAR LY Attending Provider Active Technical Administrative Assistant Relationship Specialty Start Date End Date Ck Joyce MD [address] [facility] [place] [address] PCP - General Family Medicine 03/19/22 Technical Administrative Assistant Relationship Specialty Start Date End Date Ck Joyce MD [address] [place] [address] PCP - General Family Medicine 03/19/22 Technical Administrative Assistant Relationship Specialty Start Date End Date Ck Joyce MD [address] [place], [place] [address] PCP - General Family Medicine 03/19/22 Technical Administrative Assistant Relationship Specialty Start Date End Date Ck Joyce MD [address] [facility] [address] [place] [address] PCP - General Family Medicine 03/19/22 Technical Administrative Assistant Relationship Specialty Start Date End Date Ck Joyce MD [address] [facility] [address] [place] [address] PCP - General Family Medicine 03/19/22 Technical Administrative Assistant Relationship Specialty Start Date End Date Ck Joyce MD [address] [facility] [address] [place] [address] PCP - General Family Medicine 03/19/22 Team Status: Active Member Role Status Dates Andrea Moreno MD Primary Care Provider Active Team Status: Inactive Member Role Status Dates Andrea Moreno MD Primary Care Provider Active St art: June 11, 2024 End: June 11, 2024 Andrea Moreno MD Attending Provider Active Start : June 11, 2024 End: June 11, 2024 Andrea Moreno MD Referring Provider Active Start : June 11, 2024 End: June 11, 2024 Team Status: Active Member Role/Relationship Status Dates Andrea Moreno MD Primary Care Provider Active Team Status: Inactive Member Role/Relationship Status Dates Andrea Moreno MD Primary Care Provider Active St art: June 11, 2024 End: June 11, 2024 Andrea Moreno MD Attending Provider Active Start : June 11, 2024 End: June 11, 2024 Andrea Moreno MD Referring Provider Active Start : June 11, 2024 End: June 11, 2024 Team Status: Inactive Member Role/Relationship Status Lisa Moreno MD Primary Care Provider Active St art: June 17, 2024 End: June 17, 2024 Andrea Moreno MD Attending Provider Active Start : June 17, 2024 End: June 17, 2024 Andrea Moreno MD Referring Provider Active Start : June 17, 2024 End: June 17, 2024 Team Status: Inactive Member Role/Relationship Status Dates Andrea Moreno MD Primary Care Provider Active St art: October 08, 2024 End: October 08, 2024 Andrea Moreno MD Referring Provider Active Start : October 08, 2024 End: October 08, 2024 Rodney OSPINA PA Attending Provider Active Sta rt: October 08, 2024 End: October 08, 2024 Goals (unrecognized section and content) Goals may be documented in a n alternate sectionGoals may be documented in an alternate sectionGoals may be documented in an alternate sectionGoals may be documented in an alternate section Reason for Visit (unrecogniz ed section and content) Reason Comments Spirometry Specialty Diagnoses / Procedures Referred By Contluis t Referred To [facility] Diagnoses Cough, unspecified type Procedures SPIROMETRY - BASELINE AND POST DILATOR BRNCDILAT RSPSE SPMTRY PRE&POST-BRNCDILAT ADMN Ck Ayala MD [address] [place] [address] [facility] [place] [address] [place] [id number] Referral ID Status Reason Start Date Expiration Date V isits Requested Visits Authorized [id number] Closed Auto-Generate d Referral 09/01/2023 09/30/2024 1 1 Specialty Diagnoses / Procedures Referred By Contac t Referred To [facility] [place] Diagnoses Cough, unspecified type Procedures NITRIC OXIDE, EXHALED NITRIC OXIDE GAS DETERMINATION Ck Ayala MD [address] [place] [address] [facility] [place] [facility] [place] [address] Referral ID Status Reason Start Date Expiration Date V isits Requested Visits Authorized [id number] Closed Auto-Generate d Referral 09/01/2023 09/30/2024 1 1 Reason Comments New Patient Cough Reason Comments Established Patient 6 week follow up Reason Comments Established Patient [address] [facility] Cough Reason Onset Date Comments Refill Request 04/19/2024 FOR RECORDS PERTAINING TO PATIENTS WHO ARE OR HAVE BEEN ENROLLED IN A CHEMICAL DEPENDENCY/SUBSTANCEABUSE PROGRAM, SOME INFORMATION MAY BE OMITTED. This clinical summary was aggregated from multiple sources. Caution should be exercised in using it in the provision of clinical care. This summary normalizes information from multiple sources, and as a consequence, information in this document may materially change the coding, format and clinical context of patient data. In addition, data may be omitted in some cases. CLINICAL DECISIONS SHOULD BE BASED ON THE PRIMARY CLINICAL RECORDS. [employer] provides no warranty or guarantee of the accuracy or completeness of information in this document.
== END | disposition home or self-care (01) ==
LOC: MTRAD 17:01
PROVIDERS: PCP Family Medicine
DX: M54.9 Dorsalgia, unspecified (principal)
CPT/HCPCS: 74018

== ENCOUNTER → 2024-12-08 | Outpatient (CLI) | payer MEDICARE, SELFPAY ==
[2024-12-08 13:17] LABS: Cholesterol 277 mg/dL (<=200); Low Density Lipoprotein Calc. 171 mg/dL; Triglycerides 67 mg/dL; Very Low Density Lipoprotein 13 mg/dL (5-40); cholesterol:hdl ratio screen 3.01
== END | disposition home or self-care (01) ==
LOC: MFPLAB 10:09
PROVIDERS: PCP Family Medicine; Visit Provider Family Medicine
DX: Z13.220 Encounter for screening for lipoid disorders (principal)
CPT/HCPCS: 36415; 80061